=== PATIENT | male | born 1955 | race Caucasian/White ===

== ENCOUNTER → 2018-03-31 13:19 | Outpatient (REF) | payer MEDICAID, SELFPAY ==
[2018-03-31 20:16] LABS: Abs Immature Grans 0.06 k/cumm (0.0-0.09); Absolute Basophil Count 0.03 k/cumm (0.0-0.2); Absolute Eosinophil Count 0.15 k/cumm (0.0-0.7); Absolute Lymphocyte Count 1.82 k/cumm (1.2-3.4); Absolute Monocyte Count 1.01 k/cumm (0.11-0.7); Absolute Neutrophil Count 4.34 k/cumm (1.2-6.7); Basophils % 0.4; HCT 34.1 % (40.0-50.0); HGB 10.7 g/dL (13.5-17.5); Immature Grans % 0.8; Lymphocytes % 24.6; Mean Corp. HGB Concentration 31.4 g/dL (32.0-36.0); Mean Corpuscular Hemoglobin 29.5 pg (27.0-33.0); Mean Corpuscular Volume 93.9 fL (80-95); Mean Platelet Volume 9.8 fL (8.0-11.0); Monocytes % 13.6; Neutrophils % 58.6; Platelet Count 470 x1000/uL (130-400); RBC 3.63 m/cumm (4.50-6.00); RBC Distribution Width 15.9 % (11.8-14.1); White Blood Cell Count 7.41 k/cumm (4.4-10.8)
[2018-03-31 20:25] LABS: ALT 24 U/L (12-78); AST 28 U/L (15-37); Albumin 3.3 g/dL (3.4-5.0); Alkaline Phosphatase 142 U/L (46-116); Anion Gap 9.5 mmol/L (3-11); BUN 12 mg/dL (7-18); Bilirubin, Total 0.2 mg/dL (0.2-1.0); CO2 26.5 mmol/L (21.0-32.0); CREATININE 0.59 mg/dL (0.70-1.30); Calcium 8.9 mg/dL (8.5-10.1); Chloride 104 mmol/L (98-107); Glucose 85 mg/dL (70-100); Magnesium 1.1 mg/dL (1.8-2.4); Potassium 4.6 mmol/L (3.5-5.1); Sodium 140 mmol/L (136-145); Total Protein 6.7 g/dL (6.4-8.2)
== END ==
LOC: NCHCN 13:19
PROVIDERS: PCP Nurse Practitioner; Visit Provider Nurse Practitioner
DX: K57.20 Diverticulitis of large intestine with perforation and abscess without bleeding (principal); F10.10 Alcohol abuse, uncomplicated; D64.9 Anemia, unspecified
CPT/HCPCS: 80053; 83735; 85025

== ENCOUNTER 2018-05-29 08:32 | Emergency (ER) | payer MEDICAID, SELFPAY ==
[2018-05-29] VITALS (47 sets, daily range): BP systolic 110–145; BP diastolic 66–94; PULSE 88–124; RESP 4–33; TEMP 36.7–37.2; O2SAT 94–100
--- NOTE | 2018-05-29 08:54 | DI.RAD_ITS ---
SYMPTOM/DIAGNOSIS: COUGH, SOB PA AND LATERAL CHEST: The lungs are hyperinflated consistent with COPD. No acute consolidation is seen. The cardiac size is within normal limits. No pleural effusion is seen. No change in appearance of the chest from 02/20/18. CONCLUSION: No evidence of acute disease.
--- NOTE | 2018-05-29 08:57 | W.ED.GENAD ---
Discharge Plan Disposition Patient Disposition: HOME Condition: Improving Discharge Details Chief Complaint: SOB Clinical Impression: Acute bronchitis with COPD Primary Care Provider: Hina La ED Provider: Flaco Marquez Home Meds and New Rx's Prescriptions: New prednisone 20 mg tablet 40 mg PO DAILY 5 Days Qty: 10 RF: 0 cefpodoxime 200 mg tablet 200 mg PO BID Qty: 14 RF: 0 Continue ipratropium-albuterol 0.5 mg-3 mg(2.5 mg base)/3 mL Solution For Nebulization 3 ml INHALATION QID RF: 0 omeprazole 40 mg Capsule,Delayed Release(Dr/Ec) 40 mg PO DAILY RF: 0 cholecalciferol (vitamin D3) [Vitamin D3] 1,000 unit Capsule 1,000 unit PO DAILY RF: 0 metoprolol tartrate 25 mg Tablet 25 mg PO BID RF: 0 cefpodoxime 200 mg Tablet 200 mg PO BID Qty: 14 RF: 0 multivitamin [Multiple Vitamins] 1 TAB tablet 1 tab PO DAILY RF: 0 folic acid 1 MG tablet 1 mg PO DAILY Qty: 30 RF: 0 thiamine mononitrate (vit B1) [Vitamin B-1 (mononitrate)] 100 MG tablet 100 mg PO DAILY Qty: 30 RF: 0 albuterol sulfate [ProAir HFA] 200 PUFF/INH HFA aerosol inhaler 200 puff Inhalation Q4H PRNQty: 1 RF: 0 Discharge Instructions Instructions: Acute Bronchitis (ED), COPD (Chronic Obstructive Pulmonary Disease) (ED), Bronchospasm (ED), Acute Cough (ED) Additional Instructions: Please continue to take Cefpodoxime as I have represcribed. Take prednisone as prescribed. Continue your other regular medications. Follow-up with general surgery as you have planned. We did inform him that you would miss preoperative appointment today; call for the next available point Medical Decision Making 62-year-old male smoker presents with shortness of breath and cough over days time. She does not have a fever, he is tachycardic and anxious in appearance. His lungs reveal bilateral end expiratory wheeze. A rectal diagnosis in this gentleman is broad including bronchitis, COPD exacerbation, pneumonia, mild alcohol withdrawal, dehydration. Patient IV access established, given Solu-Medrol, DuoNeb updraft, Ativan. He is referred for laboratories, EKG, chest Xray Patient's laboratories reveal a white blood cell count of 4, hematocrit 35, platelets 181. Chemistries reassuring with a negative troponin, unremarkable BNP, and hypomagnesemia that was supplemented in the emergency department. Additionally the patient received his daily dose of metoprolol. Patient improved with these interventions. This is consistent with bronchitis and COPD exacerbation. We will treat him with a course of antibiotics, burst steroids, and he may pursue follow-up with his general surgeon for planned takedown of his ostomy. Lab Data Lab results reviewed: Yes I reviewed the patient's lab results. Laboratory Tests Range/Units 05/29/18 05/29/18 05/29/18 08:50 08:50 08:50 WBC (4.4-10.8) k/cumm 4.52 RBC (4.50-6.00) m/cumm 3.98 L Hgb (13.5-17.5) g/dL 12.2 L Hct (40.0-50.0) % 35.9 L MCV (80-95) fL 90.2 MCH (27.0-33.0) pg 30.7 MCHC (32.0-36.0) g/dL 34.0 RDW (11.8-14.1) % 21.2 H Plt Count (130-400) x1000/uL 181 MPV (8.0-11.0) fL 9.2 Immature Gran % 0.2 Neutrophils % 54.9 Lymphocytes % 34.3 Monocytes % 10.2 Eosinophils % 0.2 Basophils % 0.2 Absolute Neutrophils (1.2-6.7) k/cumm 2.48 Absolute Lymphocytes (1.2-3.4) k/cumm 1.55 Absolute Monocytes (0.11-0.7) k/cumm 0.46 Absolute Eosinophils (0.0-0.7) k/cumm 0.01 Absolute Basophils (0.0-0.2) k/cumm 0.01 Sodium (136-145) mmol/L 137 Potassium (3.5-5.1) mmol/L 4.8 Chloride (98-107) mmol/L 101 Carbon Dioxide (21.0-32.0) mmol/L 24.1 Anion Gap (3-11) mmol/L 11.9 H BUN (7-18) mg/dL 12 Creatinine (0.70-1.30) mg/dL 0.83 Estimated GFR/1.73 m2 (mL/min/1.73m2) >= 60.00 Glucose (70-100) mg/dL 105 H Calcium (8.5-10.1) mg/dL 8.9 Magnesium (1.8-2.4) mg/dL 0.9 L Total Bilirubin (0.2-1.0) mg/dL 0.2 AST (15-37) U/L 42 H ALT (12-78) U/L 35 Alkaline Phosphatase (46-116) U/L 158 H Troponin I (0.00-0.06) ng/mL < 0.02 NT-Pro-B Natriuret Pep ( - 299) pg/mL 84 Total Protein (6.4-8.2) g/dL 7.6 Albumin (3.4-5.0) g/dL 3.8 ECG Data Attestation: I personally reviewed and interpreted this ECG (s) as follows: Interpretation: Sinus tachycardia, the QRS is narrow, there is no ST segment elevation present HPI General Mode of arrival: ambulatory. Date/Time Provider Initiated Documentation: 05/29/18 08:49. Limitations to Documentation: no limitations. Information obtained by: patient. History of Present Illness 62 year old M presents to the emergency department with the chief complaint of Shortness of breath, described as severe, Quality is described as constant, and is localized to the chest. Patient started experiencing this day(s) and it has been constant. No relieving factors improve symptom(s), No exacerbating factors reported . HPI Narrative: 62-year-old male smoker and chronic daily user of alcohol presents with cough, congestion, shortness of breath for approximately 3 days time that worsened this morning. Sister with congestion. States his last drink was a single beer yesterday. He admits to some nerves. He has not had chest pain. He has not had swelling. No nausea or vomiting. No known sick contacts Related Data Home Medications Medication Instructions Recorded Confirmed albuterol sulfate [ProAir HFA] 200 puff INHALATION Q4H PRN #1 inh 01/23/18 05/29/18 folic acid 1 mg PO DAILY #30 tab 01/23/18 05/29/18 multivitamin [Multiple Vitamins] 1 tab PO DAILY tab 01/23/18 05/29/18 thiamine mononitrate (vit B1) 100 mg PO DAILY #30 tab 01/23/18 05/29/18 [Vitamin B-1 (mononitrate)] cefpodoxime 200 mg PO BID #14 tab 05/29/18 cefpodoxime 200 mg PO BID #14 tab 05/29/18 05/29/18 cholecalciferol (vitamin D3) 1,000 unit PO DAILY 05/29/18 05/29/18 [Vitamin D3] ipratropium-albuterol 3 ml INHALATION QID 05/29/18 05/29/18 metoprolol tartrate 25 mg PO BID 05/29/18 05/29/18 omeprazole 40 mg PO DAILY 05/29/18 05/29/18 prednisone 40 mg PO DAILY 5 Days #10 tab 05/29/18 Previous Rx's Medication Instructions Recorded albuterol sulfate [ProAir HFA] 200 puff INHALATION Q4H PRN #1 inh 01/23/18 folic acid 1 mg PO DAILY #30 tab 01/23/18 multivitamin [Multiple Vitamins] 1 tab PO DAILY tab 01/23/18 thiamine mononitrate (vit B1) 100 mg PO DAILY #30 tab 01/23/18 [Vitamin B-1 (mononitrate)] cefpodoxime 200 mg PO BID #14 tab 05/29/18 cefpodoxime 200 mg PO BID #14 tab 05/29/18 prednisone 40 mg PO DAILY 5 Days #10 tab 05/29/18 Allergies Allergy/AdvReac Type Severity Reaction Status Date / Time No Known Allergies Allergy Unverified 02/20/18 11:29 Review of Systems Review of Systems 8 systems reviewed and otherwise negative [facility] Social History Smoking/Tobacco Use Status: Current every day Exam Narrative Exam Narrative: GEN: awake, alert, oriented 3. Pleasant, well groomed, interactive, anxious. HEAD: Normocephalic, atraumatic ENT: Mucous membranes moist, oropharynx unremarkable, External ear exam unremarkable EYES: PERRL, EOMI NECK: Full ROM, no JOVAN, no menigismus CHEST/RESP: Nontender, diminished bilaterally with end expiratory wheeze present CARDIOVASCULAR: Tachycardic, radial, no murmur, rub juan. 2+ Rad pulse bilateral ABDOMEN: Soft, nontender, no mass. +Bowel sounds EXT: Full ROM, no edema, no rash Neuro: Grossly normal neurologic exam, conversant, interactive. Psych: Speech fluent, thoughts congruent, affect anxious
--- NOTE | 2018-05-29 09:01 | ED.GENADUL_ITS ---
Discharge Plan Disposition Patient Disposition: HOME Condition: Improving Discharge Details Chief Complaint: SOB Clinical Impression: Acute bronchitis with COPD Primary Care Provider: Hina La ED Provider: Flaco Marquez Home Meds and New Rx's Prescriptions: New prednisone 20 mg tablet 40 mg PO DAILY 5 Days Qty: 10 RF: 0 cefpodoxime 200 mg tablet 200 mg PO BID Qty: 14 RF: 0 Continue ipratropium-albuterol 0.5 mg-3 mg(2.5 mg base)/3 mL Solution For Nebulization 3 ml INHALATION QID RF: 0 omeprazole 40 mg Capsule,Delayed Release(Dr/Ec) 40 mg PO DAILY RF: 0 cholecalciferol (vitamin D3) [Vitamin D3] 1,000 unit Capsule 1,000 unit PO DAILY RF: 0 metoprolol tartrate 25 mg Tablet 25 mg PO BID RF: 0 cefpodoxime 200 mg Tablet 200 mg PO BID Qty: 14 RF: 0 multivitamin [Multiple Vitamins] 1 TAB tablet 1 tab PO DAILY RF: 0 folic acid 1 MG tablet 1 mg PO DAILY Qty: 30 RF: 0 thiamine mononitrate (vit B1) [Vitamin B-1 (mononitrate)] 100 MG tablet 100 mg PO DAILY Qty: 30 RF: 0 albuterol sulfate [ProAir HFA] 200 PUFF/INH HFA aerosol inhaler 200 puff Inhalation Q4H PRNQty: 1 RF: 0 Discharge Instructions Instructions: Acute Bronchitis (ED), COPD (Chronic Obstructive Pulmonary Disease) (ED), Bronchospasm (ED), Acute Cough (ED) Additional Instructions: Please continue to take Cefpodoxime as I have represcribed. Take prednisone as prescribed. Continue your other regular medications. Follow-up with general surgery as you have planned. We did inform him that you would miss preoperative appointment today; call for the next available point Medical Decision Making 62-year-old male smoker presents with shortness of breath and cough over days time. She does not have a fever, he is tachycardic and anxious in appearance. His lungs reveal bilateral end expiratory wheeze. A rectal diagnosis in this gentleman is broad including bronchitis, COPD exacerbation, pneumonia, mild alcohol withdrawal, dehydration. Patient IV access established, given Solu-Medrol, DuoNeb updraft, Ativan. He is referred for laboratories, EKG, chest Xray Patient's laboratories reveal a white blood cell count of 4, hematocrit 35, platelets 181. Chemistries reassuring with a negative troponin, unremarkable BNP, and hypomagnesemia that was supplemented in the emergency department. Additionally the patient received his daily dose of metoprolol. Patient improved with these interventions. This is consistent with bronchitis and COPD exacerbation. We will treat him with a course of antibiotics, burst steroids, and he may pursue follow-up with his general surgeon for planned takedown of his ostomy. Lab Data Lab results reviewed: Yes I reviewed the patient's lab results. Laboratory Tests Range/Units 05/29/18 05/29/18 05/29/18 08:50 08:50 08:50 WBC (4.4-10.8) k/cumm 4.52 RBC (4.50-6.00) m/cumm 3.98 L Hgb (13.5-17.5) g/dL 12.2 L Hct (40.0-50.0) % 35.9 L MCV (80-95) fL 90.2 MCH (27.0-33.0) pg 30.7 MCHC (32.0-36.0) g/dL 34.0 RDW (11.8-14.1) % 21.2 H Plt Count (130-400) x1000/uL 181 MPV (8.0-11.0) fL 9.2 Immature Gran % 0.2 Neutrophils % 54.9 Lymphocytes % 34.3 Monocytes % 10.2 Eosinophils % 0.2 Basophils % 0.2 Absolute Neutrophils (1.2-6.7) k/cumm 2.48 Absolute Lymphocytes (1.2-3.4) k/cumm 1.55 Absolute Monocytes (0.11-0.7) k/cumm 0.46 Absolute Eosinophils (0.0-0.7) k/cumm 0.01 Absolute Basophils (0.0-0.2) k/cumm 0.01 Sodium (136-145) mmol/L 137 Potassium (3.5-5.1) mmol/L 4.8 Chloride (98-107) mmol/L 101 Carbon Dioxide (21.0-32.0) mmol/L 24.1 Anion Gap (3-11) mmol/L 11.9 H BUN (7-18) mg/dL 12 Creatinine (0.70-1.30) mg/dL 0.83 Estimated GFR/1.73 m2 (mL/min/1.73m2) >= 60.00 Glucose (70-100) mg/dL 105 H Calcium (8.5-10.1) mg/dL 8.9 Magnesium (1.8-2.4) mg/dL 0.9 L Total Bilirubin (0.2-1.0) mg/dL 0.2 AST (15-37) U/L 42 H ALT (12-78) U/L 35 Alkaline Phosphatase (46-116) U/L 158 H Troponin I (0.00-0.06) ng/mL < 0.02 NT-Pro-B Natriuret Pep ( - 299) pg/mL 84 Total Protein (6.4-8.2) g/dL 7.6 Albumin (3.4-5.0) g/dL 3.8 ECG Data Attestation: I personally reviewed and interpreted this ECG (s) as follows: Interpretation: Sinus tachycardia, the QRS is narrow, there is no ST segment elevation present HPI General Mode of arrival: ambulatory . Date/Time Provider Initiated Documentation: 05/29/18 08:49 . Limitations to Documentation: no limitations . Information obtained by: patient . History of Present Illness 62 year old M presents to the emergency department with the chief complaint of Shortness of breath, described as severe, Quality is described as constant, and is localized to the chest. Patient started experiencing this day(s) and it has been constant. No relieving factors improve symptom(s), No exacerbating factors reported . HPI Narrative: 62-year-old male smoker and chronic daily user of alcohol presents with cough, congestion, shortness of breath for approximately 3 days time that worsened this morning. Sister with congestion. States his last drink was a single beer yesterday. He admits to some nerves. He has not had chest pain. He has not had swelling. No nausea or vomiting. No known sick contacts Related Data Home Medications Medication Instructions Recorded Confirmed albuterol sulfate [ProAir HFA] 200 puff INHALATION Q4H PRN #1 inh 01/23/1805/29 folic acid 1 mg PO DAILY #30 tab 01/23/18 05/29/18 multivitamin [Multiple Vitamins] 1 tab PO DAILY tab 01/23/18 05/29/18 thiamine mononitrate (vit B1) 100 mg PO DAILY #30 tab 01/23/18 05/29/18 [Vitamin B-1 (mononitrate)] cefpodoxime 200 mg PO BID #14 tab 05/29/18 cefpodoxime 200 mg PO BID #14 tab 05/29/18 05/29/18 cholecalciferol (vitamin D3) 1,000 unit PO DAILY 05/29/18 05/29/18 [Vitamin D3] ipratropium-albuterol 3 ml INHALATION QID 05/29/18 05/29/18 metoprolol tartrate 25 mg PO BID 05/29/18 05/29/18 omeprazole 40 mg PO DAILY 05/29/18 05/29/18 prednisone 40 mg PO DAILY 5 Days #10 tab 05/29/18 Previous Rx's Medication Instructions Recorded albuterol sulfate [ProAir HFA] 200 puff INHALATION Q4H PRN #1 inh 01/23/18 folic acid 1 mg PO DAILY #30 tab 01/23/18 multivitamin [Multiple Vitamins] 1 tab PO DAILY tab 01/23/18 thiamine mononitrate (vit B1) 100 mg PO DAILY #30 tab 01/23/18 [Vitamin B-1 (mononitrate)] cefpodoxime 200 mg PO BID #14 tab 05/29/18 cefpodoxime 200 mg PO BID #14 tab 05/29/18 prednisone 40 mg PO DAILY 5 Days #10 tab 05/29/18 Allergies Allergy/AdvReac Type Severity Reaction Status Date / Time No Known Allergies Allergy Unverified 02/20/18 11:29 Review of Systems Review of Systems 8 systems reviewed and otherwise negative [facility] Social History Smoking/Tobacco Use Status: Current every day Exam Narrative Exam Narrative: GEN: awake, alert, oriented 3. Pleasant, well groomed, interactive, anxious. HEAD: Normocephalic, atraumatic ENT: Mucous membranes moist, oropharynx unremarkable, External ear exam unremarkable EYES: PERRL, EOMI NECK: Full ROM, no JOVAN, no menigismus CHEST/RESP: Nontender, diminished bilaterally with end expiratory wheeze present CARDIOVASCULAR: Tachycardic, radial, no murmur, rub juna. 2+ Rad pulse bilateral ABDOMEN: Soft, nontender, no mass. +Bowel sounds EXT: Full ROM, no edema, no rash Neuro: Grossly normal neurologic exam, conversant, interactive. Psych: Speech fluent, thoughts congruent, affect anxious
[2018-05-29] MEDS: Albuterol/Ipratropium 3 ML UPD VIAL UPD (09:07)
[2018-05-29] MEDS: methylPREDNISolone SUCC 125 MG VIAL IVP (09:09)
[2018-05-29] MEDS: LORazepam 2 MG/ML VIAL 0.5 MG IVP (09:10)
[2018-05-29 09:23] LABS: Abs Immature Grans 0.01 k/cumm (0.0-0.09); Absolute Basophil Count 0.01 k/cumm (0.0-0.2); Absolute Eosinophil Count 0.01 k/cumm (0.0-0.7); Absolute Lymphocyte Count 1.55 k/cumm (1.2-3.4); Absolute Monocyte Count 0.46 k/cumm (0.11-0.7); Absolute Neutrophil Count 2.48 k/cumm (1.2-6.7); Basophils % 0.2; Eosinophils % 0.2; HCT 35.9 % (40.0-50.0); HGB 12.2 g/dL (13.5-17.5); Immature Grans % 0.2; Lymphocytes % 34.3; Mean Corpuscular Hemoglobin 30.7 pg (27.0-33.0); Mean Corpuscular Volume 90.2 fL (80-95); Mean Platelet Volume 9.2 fL (8.0-11.0); Monocytes % 10.2; Neutrophils % 54.9; Platelet Count 181 x1000/uL (130-400); RBC 3.98 m/cumm (4.50-6.00); RBC Distribution Width 21.2 % (11.8-14.1); White Blood Cell Count 4.52 k/cumm (4.4-10.8)
[2018-05-29 09:33] LABS: ALT 35 U/L (12-78); AST 42 U/L (15-37); Albumin 3.8 g/dL (3.4-5.0); Alkaline Phosphatase 158 U/L (46-116); Anion Gap 11.9 mmol/L (3-11); BUN 12 mg/dL (7-18); Bilirubin, Total 0.2 mg/dL (0.2-1.0); CO2 24.1 mmol/L (21.0-32.0); CREATININE 0.83 mg/dL (0.70-1.30); Calcium 8.9 mg/dL (8.5-10.1); Chloride 101 mmol/L (98-107); Glucose 105 mg/dL (70-100); Potassium 4.8 mmol/L (3.5-5.1); Sodium 137 mmol/L (136-145); Total Protein 7.6 g/dL (6.4-8.2)
[2018-05-29 09:40] LABS: Magnesium 0.9 mg/dL (1.8-2.4); NT-proBNP 84 pg/mL
[2018-05-29 09:44] LABS: Troponin I < 0.02 ng/mL (0.00-0.06)
[2018-05-29] MEDS: Normal Saline 1,000 ML 1000 ML IV (10:21)
[2018-05-29] MEDS: Metoprolol 25 MG TAB PO (10:24)
[2018-05-29] MEDS: Metoprolol 5 MG/5 ML VIAL IVP (10:25)
--- NOTE | 2018-05-29 10:26 | NUR.NOTE ---
Nursing Note: Called and canceled appt. with pre-op; Dr. Curry in [place] for the patient. Patient is aware that he needs to call and re-schedule when available. . Kisha Holland
[2018-05-29] MEDS: MAGNESIUM SULFATE 1 GM/100 ML BAG IVPB (11:21)
== END 2018-05-29 12:48 | disposition home or self-care (01) ==
PROVIDERS: Emergency Provider Emergency Medicine; PCP Nurse Practitioner
DX: J44.0 Chronic obstructive pulmonary disease with (acute) lower respiratory infection (principal); J20.9 Acute bronchitis, unspecified; F17.210 Nicotine dependence, cigarettes, uncomplicated
CPT/HCPCS: 36415; 80053; 93005; 94640; 96361; 96365; 96375; 99285; 71046; 83735; 83880; 84484; 85025; 93010; 99284; J2060; J2930; J3475; J7620

== ENCOUNTER 2018-06-08 11:05 | Outpatient (REF) | payer MEDICAID, SELFPAY ==
[2018-06-08 21:08] LABS: ALT 43 U/L (12-78); AST 35 U/L (15-37); Albumin 3.6 g/dL (3.4-5.0); Alkaline Phosphatase 108 U/L (46-116); Anion Gap 10.6 mmol/L (3-11); BUN 16 mg/dL (7-18); Bilirubin, Total 0.1 mg/dL (0.2-1.0); CO2 25.4 mmol/L (21.0-32.0); CREATININE 0.61 mg/dL (0.70-1.30); Chloride 100 mmol/L (98-107); Glucose 84 mg/dL (70-100); Magnesium 1.4 mg/dL (1.8-2.4); Potassium 4.5 mmol/L (3.5-5.1); Sodium 136 mmol/L (136-145)
== END 2018-06-08 11:25 ==
LOC: NCHCN 11:05
PROVIDERS: PCP Nurse Practitioner; Visit Provider Nurse Practitioner
DX: E83.42 Hypomagnesemia (principal); R79.89 Other specified abnormal findings of blood chemistry
CPT/HCPCS: 80053; 83735

== ENCOUNTER 2018-06-21 09:20 | Emergency (ER) | payer MEDICAID, SELFPAY ==
[2018-06-21] VITALS (66 sets, daily range): BP systolic 127–214; BP diastolic 79–195; PULSE 72–147; RESP 11–35; TEMP 36.9–37.2; O2SAT 96–100
--- NOTE | 2018-06-21 09:43 | DI.CT_ITS ---
SYMPTOMS/DIAGNOSIS: RECENT COLOSTOMY, ABD PAIN, DISTENSION PE CHEST CTA: CT angiography was performed with multi slice acquisition and multi planar and 3D reconstruction. The study was carried out with intravenous administration of 100 cc's of Omnipaque 350. There are emphysematous changes in the lungs. Apical pulmonary and pleural scarring is demonstrated. There is no evidence of PE. There is no evidence of an infiltrate, pleural based intrapulmonary or hilar mass or hilar or mediastinal adenopathy. The heart is not enlarged. There is no pericardial effusion. There is no evidence of an aortic aneurysm with note made of atherosclerotic changes. There is mild DJD involving the dorsal spine and no evidence of a fracture or subluxation. Incidentally there is no evidence of free air beneath the right and left hemidiaphragm. SUMMARY: No evidence of pulmonary embolic disease. No evidence of acute cardiopulmonary disease. Please see the above discussion. CT OF THE ABDOMEN AND PELVIS: The abdominal aorta is of normal caliber. There is evidence of atherosclerotic disease. There is no evidence of an abdominal aortic aneurysm, iliac aneurysm or aneurysm involving the visualized proximal portions of the femoral arteries. There is apparent fatty infiltration of the liver. The pancreas as demonstrated appears normal. There is no evidence of splenic pathology. There is no evidence of bowel obstruction. There are some mildly dilated loops of proximal and mid small bowel. The bladder is intact. The prostate is somewhat enlarged and contains calcifications. The reproductive organs as visualized appear intact. No hernia is evident on the present examination. There are mild degenerative changes involving the hips and mild DJD involving the lumbar spine is identified. SUMMARY: No evidence of an aortic aneurysm or occlusion of the celiac or superior mesenteric arteries. Incidental findings as noted above.
[2018-06-21] MEDS: Normal Saline 1,000 ML 1000 ML IV ×2 (09:50→13:30)
[2018-06-21 10:16] LABS: Lactate-non-spesis 2.5 mmol/L (0.6-1.4)
[2018-06-21 10:21] LABS: Abs Immature Grans 0.05 k/cumm (0.0-0.09); Absolute Basophil Count 0.05 k/cumm (0.0-0.2); Absolute Eosinophil Count 0.09 k/cumm (0.0-0.7); Absolute Lymphocyte Count 1.57 k/cumm (1.2-3.4); Absolute Monocyte Count 0.71 k/cumm (0.11-0.7); Absolute Neutrophil Count 2.85 k/cumm (1.2-6.7); Basophils % 0.9; Eosinophils % 1.7; HCT 35.4 % (40.0-50.0); HGB 11.9 g/dL (13.5-17.5); Immature Grans % 0.9; Lymphocytes % 29.5; Mean Corp. HGB Concentration 33.6 g/dL (32.0-36.0); Mean Corpuscular Hemoglobin 30.8 pg (27.0-33.0); Mean Corpuscular Volume 91.7 fL (80-95); Mean Platelet Volume 8.3 fL (8.0-11.0); Monocytes % 13.3; Neutrophils % 53.7; Platelet Count 226 x1000/uL (130-400); RBC 3.86 m/cumm (4.50-6.00); RBC Distribution Width 19.6 % (11.8-14.1); White Blood Cell Count 5.32 k/cumm (4.4-10.8)
[2018-06-21 10:23] LABS: Ammonia 22 umol/L (11-32)
[2018-06-21 10:33] LABS: PTT Activated 21.9 sec (21.0-31.4); Prothrombin Time 9.3 sec (9.3-10.8)
[2018-06-21 10:41] LABS: ALT 32 U/L (12-78); AST 40 U/L (15-37); Albumin 3.4 g/dL (3.4-5.0); Alkaline Phosphatase 137 U/L (46-116); Anion Gap 11.8 mmol/L (3-11); BUN 16 mg/dL (7-18); Bilirubin, Total 0.1 mg/dL (0.2-1.0); CO2 25.2 mmol/L (21.0-32.0); CREATININE 0.65 mg/dL (0.70-1.30); Calcium 8.6 mg/dL (8.5-10.1); Chloride 102 mmol/L (98-107); ETHANOL BLOOD 134.2 mg/dL (<3); Glucose 83 mg/dL (70-100); Lipase 277 U/L (73-393); Potassium 3.9 mmol/L (3.5-5.1); Sodium 139 mmol/L (136-145); TSH 0.41 uIU/mL (0.358-3.74); Total Protein 6.7 g/dL (6.4-8.2); Troponin I < 0.02 ng/mL (0.00-0.06)
[2018-06-21] MEDS: Omnipaque 350 MG/ML 100 ML BTL IJ (11:32)
[2018-06-21] MEDS: Omnipaque 350 MG/ML 50 ML BTL PO (11:32)
[2018-06-21 12:34] LABS: Bilirubin Negative (Negative); Blood Negative (Negative); Clarity Clear; Glucose Negative (Negative); Ketones Negative (Negative); Leukocyte Esterase Negative (Negative); Nitrite Negative (Negative); Urobilinogen 0.2 EU/dL (Up TO 0.2); pH 5.5 (5-8)
[2018-06-21 14:34] LABS: Lactate-non-spesis 1.8 mmol/L (0.6-1.4)
[2018-06-21 14:48] LABS: Troponin I < 0.02 ng/mL (0.00-0.06)
--- NOTE | 2018-06-21 15:16 | NUR.NOTE ---
sitting up in bed tolerating food and fluids Nursing Note:
--- NOTE | 2018-06-21 16:07 | PDOC.ERCMACT ---
Care Management Activity Note CM rec'd page for transport coordination-Vito has reportedly been discharged and needs transport home. CM paged [facility] to coordinate transport.
--- NOTE | 2018-06-22 10:35 | W.ED.GENAD ---
Discharge Plan Disposition Patient Disposition: HOME Condition: Good Discharge Details Chief Complaint: SOB Clinical Impression: Abdominal pain, Gastritis, ETOH abuse, Dehydration Reason For Visit: MICKEY Primary Care Provider: Hina La ED Provider: Franky Overton Home Meds and New Rx's Prescriptions: No Action ipratropium-albuterol 0.5 mg-3 mg(2.5 mg base)/3 mL Solution For Nebulization 3 ml INHALATION QID RF: 0 omeprazole 40 mg Capsule,Delayed Release(Dr/Ec) 40 mg PO DAILY RF: 0 cholecalciferol (vitamin D3) [Vitamin D3] 1,000 unit Capsule 1,000 unit PO DAILY RF: 0 metoprolol tartrate 25 mg Tablet 25 mg PO BID RF: 0 cefpodoxime 200 mg Tablet 200 mg PO BID Qty: 14 RF: 0 cefpodoxime 200 mg tablet 200 mg PO BID Qty: 14 RF: 0 multivitamin [Multiple Vitamins] 1 TAB tablet 1 tab PO DAILY RF: 0 folic acid 1 MG tablet 1 mg PO DAILY Qty: 30 RF: 0 thiamine mononitrate (vit B1) [Vitamin B-1 (mononitrate)] 100 MG tablet 100 mg PO DAILY Qty: 30 RF: 0 albuterol sulfate [ProAir HFA] 200 PUFF/INH HFA aerosol inhaler 200 puff Inhalation Q4H PRNQty: 1 RF: 0 Discharge Instructions Instructions: Abdominal Pain (ED) Additional Instructions: Please follow-up with your surgeon as soon as possible for reassessment. If you notice any change in the output from urostomy, any worsening of your abdominal pain, please return immediately. If you notice any worsening of your symptoms, or any new symptoms such as vomiting, diarrhea, fever, chills, shortness of breath, chest pain, numbness, weakness, or fainting , please return immediately to the emergency department for reevaluation. Please follow up with your primary care provider as soon as possible for reassessment and reevaluation. As always, it was a pleasure participating in your medical care today. Referrals: Hina La [Primary Care Provider] - Discharge Data Discharge Date/Time-TO BE ENTERED AT DEPARTURE: 06/21/18 16:03 Medical Decision Making This is a pleasant 62-year-old male who presents for evaluation of abdominal pain, mild shortness of breath and nonexertional chest pain. He has a history of a colostomy was placed 2 months ago, the patient is a very poor historian, is unable to give us the reasons for the colostomy. He is scheduled to have it reversed later. He is also a chronic alcoholic, his last drink was last night. Initial physical exam demonstrates very mild tachycardia, no hypoxemia or significant tachypnea. Abdominal exam demonstrates mild generalized abdominal tenderness, no guarding or rebound, no pain out of proportion. Lung sounds are normal, chest chest auscultation is normal. No other significant abnormalities are noted on external exam aside from mild dry mucosa. Differential is broad but included potential vascular compromise of his abdominal region secondary to his multiple previous surgeries, as well as potential chronic gastritis, as he is a regular alcoholic and is not always compliant with his home medications of antacids. Laboratory workup demonstrated no significant white count, normal renal function, benign electrolyte profile. Troponin was normal. EKG was benign. Initial lactate was slightly elevated, patient was rehydrated, repeat lactate was 1.8. Urinalysis showed no significant abnormalities. CTA of the chest abdomen and pelvis was ordered for evaluation of intestinal ischemia, versus colitis versus pulmonary embolism for shortness of breath. CTA was negative for any acute process for both the abdomen and the chest. No clear etiology of his symptoms was noted on imaging. No evidence of PE, intestinal ischemia, or colitis. Patient has had normal output from his ostomy. No evidence of bleeding. After rehydration patient felt much better. Repeat serial troponin was also normal. I did discuss with the patient observation versus discharge, and the patient agrees with discharge home at this time. I did discuss with him the vital importance of decreasing his alcohol, avoiding any spicy foods, and taking his prescribed omeprazole. Patient states that he understands. Had a long discussion with the patient regarding red flags which to return. Diagnosis abdominal pain, suspected gastritis from chronic alcoholism, and dehydration. I discussed with him the importance of close follow-up with his surgeon at the [facility] for his colostomy, as well as prompt follow-up with his primary care provider for any potential mild recurrent chest pain or shortness of breath. I have extensively reviewed the treatment plan and discharge instructions with the patient. I have addressed all patient concerns at this time. The patient was made aware of what symptoms to monitor for that would warrant a return to the emergency department. Discussed the plan with the patient, they demonstrate verbal understanding and agreement with our assessment and plan at this time. EKG 9: 24 Rate 108, intervals normal, sinus tachycardia, minimal peaking in the lateral T waves, no ST elevations or depressions, no T wave inversions, normal EKG. PE CHEST CTA: CT angiography was performed with multi slice acquisition and multi planar and 3D reconstruction. The study was carried out with intravenous administration of 100 cc's of Omnipaque 350. There are emphysematous changes in the lungs. Apical pulmonary and pleural scarring is demonstrated. There is no evidence of PE. There is no evidence of an infiltrate, pleural based intrapulmonary or hilar mass or hilar or mediastinal adenopathy. The heart is not enlarged. There is no pericardial effusion. There is no evidence of an aortic aneurysm with note made of atherosclerotic changes. There is mild DJD involving the dorsal spine and no evidence of a fracture or subluxation. Incidentally there is no evidence of free air beneath the right and left hemidiaphragm. SUMMARY: No evidence of pulmonary embolic disease. No evidence of acute cardiopulmonary disease. Please see the above discussion. CT OF THE ABDOMEN AND PELVIS: The abdominal aorta is of normal caliber. There is evidence of atherosclerotic disease. There is no evidence of an abdominal aortic aneurysm, iliac aneurysm or aneurysm involving the visualized proximal portions of the femoral arteries. There is apparent fatty infiltration of the liver. The pancreas as demonstrated appears normal. There is no evidence of splenic pathology. There is no evidence of bowel obstruction. There are some mildly dilated loops of proximal and mid small bowel. The bladder is intact. The prostate is somewhat enlarged and contains calcifications. The reproductive organs as visualized appear intact. No hernia is evident on the present examination. There are mild degenerative changes involving the hips and mild DJD involving the lumbar spine is identified. SUMMARY: No evidence of an aortic aneurysm or occlusion of the celiac or superior mesenteric arteries. Incidental findings as noted above. HPI General Date/Time Provider Initiated Documentation: 06/21/18 09:42. HPI Narrative: This is a 62-year-old male who is an extremely poor historian with very little medical insight with a past medical history of notable chronic alcoholism, colostomy with expected reversal, rectus diastases, reflux and gastritis, who denies any other past medical history to myself and nursing staff, who presents today for evaluation of mild dizziness, mild abdominal pain, questionable chest pain shortness of breath. States that his last drink was yesterday, but he also states that he never drinks at all which is clearly not the case. Patient states that over the last 1-2 days he has had mild abdominal discomfort, he feels like his abdomen has been bloating. He denies any vomiting, or change in his colostomy output. He denies any hematochezia, melena, acholic stool, hematemesis. He describes his abdominal pain as achy in nature and generalized throughout. He denies any specific focality. The pain appears to be constant. There is some worsening in the left upper quadrant. He does admit to occasional dizziness as well, with some occasional chest pain shortness of breath which she describes as very mild, nonexertional, with no radiation to the arms or neck. Shortness of breath he describes as mild, and he denies any associated cough, fever or chills. Denies PE risk factors such as recent long car rides, immobilization, recent surgery, prior history of DVT or PE, family history of PE or DVT, morbid obesity, exogenous estrogen and smoking, hemoptysis, history of cancer. Patient has no other complaints at this time. No other modifying factors. He denies any IV or illicit drug use, he denies any pertinent family history Related Data Home Medications Medication Instructions Recorded Confirmed albuterol sulfate [ProAir HFA] 200 puff INHALATION Q4H PRN #1 inh 01/23/18 05/29/18 folic acid 1 mg PO DAILY #30 tab 01/23/18 05/29/18 multivitamin [Multiple Vitamins] 1 tab PO DAILY tab 01/23/18 05/29/18 thiamine mononitrate (vit B1) 100 mg PO DAILY #30 tab 01/23/18 05/29/18 [Vitamin B-1 (mononitrate)] cefpodoxime 200 mg PO BID #14 tab 05/29/18 cefpodoxime 200 mg PO BID #14 tab 05/29/18 05/29/18 cholecalciferol (vitamin D3) 1,000 unit PO DAILY 05/29/18 05/29/18 [Vitamin D3] ipratropium-albuterol 3 ml INHALATION QID 05/29/18 05/29/18 metoprolol tartrate 25 mg PO BID 05/29/18 05/29/18 omeprazole 40 mg PO DAILY 05/29/18 05/29/18 Previous Rx's Medication Instructions Recorded albuterol sulfate [ProAir HFA] 200 puff INHALATION Q4H PRN #1 inh 01/23/18 folic acid 1 mg PO DAILY #30 tab 01/23/18 multivitamin [Multiple Vitamins] 1 tab PO DAILY tab 01/23/18 thiamine mononitrate (vit B1) 100 mg PO DAILY #30 tab 01/23/18 [Vitamin B-1 (mononitrate)] cefpodoxime 200 mg PO BID #14 tab 05/29/18 cefpodoxime 200 mg PO BID #14 tab 05/29/18 Allergies Allergy/AdvReac Type Severity Reaction Status Date / Time No Known Allergies Allergy Unverified 02/20/18 11:29 General Stated Complaint: SOB CADE: 2 Review of Systems Review of Systems All systems reviewed & are unremarkable except as noted in HPI and below Exam Narrative Exam Narrative: 1.Const: Well-nourished, Well-developed, appearing stated age 2.Eyes: PERRL, no conjunctival injection, and symmetrical lids. No horizontal, vertical or rotatory nystagmus. 3.ENT: Atraumatic external nose and ears. Moist MM. Neck: Symmetric, trachea midline, No thyromegaly. 4.CVS: +S1/S2, No murmurs or gallops. Peripheral pulses 2+ and equal in all extremities. Brisk capillary refill in all extremities. 5.RESP: Unlabored respiratory effort. Clear to auscultation bilaterally. No wheezes rales or rhonchi no reproducible chest, 6.GI: Soft, nondistended, no guarding or rebound, no significant hepatosplenomegaly. There is evidence of previous surgical scars, and a mild rectus diastases. He does have a right-sided ostomy, with normal output, and a pink and moist stoma. No evidence of bleeding. 7.MSK: Normocephalic/Atraumatic, Extremities w/o deformity or ttp No cyanosis or clubbing, Normal movement of all extremities 8.Skin: Warm, Dry. No rashes or lesions. 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 Sensation grossly intact, no focal neurologic deficits. No asterixis, significant ataxia, or other abnormalities. 10.Psych: (AAO) x3. Appropriate mood and affect Course Vital Signs Respiratory Rate 26 H 06/21/18 09:23 Pulse Oximetry 99 06/21/18 09:23 Temperature 36.9 C 06/21/18 15:55 Temperature Source Skin 06/21/18 09:29 Pulse 72 06/21/18 15:55 Pulse 93 H 06/21/18 15:40 Respiratory Rate 18 06/21/18 15:55 Respiratory Effort 06/21/18 09:34 Respiratory Depth Normal 06/21/18 09:34 Respiratory Pattern Normal 06/21/18 09:34 Blood Pressure 133/80 06/21/18 15:55 Blood Pressure Mean 106 06/21/18 15:16 Pulse Oximetry 99 06/21/18 16:10 Oxygen Delivery Method Room Air 06/21/18 09:29 Oxygen Flow Rate 0 06/21/18 09:29 Lab/Test Results Lab/Test Results: 06/21/18 10:50 Blood Blood Culture - Pending 06/21/18 09:55 Blood Blood Culture - Pending Laboratory Tests Range/Units 06/21/18 06/21/18 06/21/18 09:55 09:55 09:55 WBC (4.4-10.8) k/cumm RBC (4.50-6.00) m/cumm Hgb (13.5-17.5) g/dL Hct (40.0-50.0) % MCV (80-95) fL MCH (27.0-33.0) pg MCHC (32.0-36.0) g/dL RDW (11.8-14.1) % Plt Count (130-400) x1000/uL MPV (8.0-11.0) fL Immature Gran % Neutrophils % Lymphocytes % Monocytes % Eosinophils % Basophils % Absolute Neutrophils (1.2-6.7) k/cumm Absolute Lymphocytes (1.2-3.4) k/cumm Absolute Monocytes (0.11-0.7) k/cumm Absolute Eosinophils (0.0-0.7) k/cumm Absolute Basophils (0.0-0.2) k/cumm PT (9.3-10.8) sec INR (1.0-3.5) APTT (21.0-31.4) sec Sodium (136-145) mmol/L 139 Potassium (3.5-5.1) mmol/L 3.9 Chloride (98-107) mmol/L 102 Carbon Dioxide (21.0-32.0) mmol/L 25.2 Anion Gap (3-11) mmol/L 11.8 H BUN (7-18) mg/dL 16 Creatinine (0.70-1.30) mg/dL 0.65 L Estimated GFR/1.73 m2 (mL/min/1.73m2) >= 60.00 Glucose (70-100) mg/dL 83 Lactate (0.6-1.4) mmol/L 2.5 H Calcium (8.5-10.1) mg/dL 8.6 Total Bilirubin (0.2-1.0) mg/dL 0.1 L AST (15-37) U/L 40 H ALT (12-78) U/L 32 Alkaline Phosphatase (46-116) U/L 137 H Ammonia (11-32) umol/L 22 Troponin I (0.00-0.06) ng/mL < 0.02 Total Protein (6.4-8.2) g/dL 6.7 Albumin (3.4-5.0) g/dL 3.4 Lipase (73-393) U/L 277 TSH (0.358-3.74) uIU/mL 0.41 Urine Color (Yellow) Urine Clarity Urine pH (5-8) Ur Specific [place] (1.005-1.025) Urine Protein (Negative) mg/dL Urine Ketones (Negative) mg/dL Urine Blood (Negative) Urine Nitrite (Negative) Urine Bilirubin (Negative) Urine Urobilinogen (Up TO 0.2) EU/dL Ur Leukocyte Esterase (Negative) Urine Glucose (Negative) mg/dL Ethyl Alcohol (<3) mg/dL 134.2 Range/Units 06/21/18 06/21/18 06/21/18 09:55 09:55 12:25 WBC (4.4-10.8) k/cumm 5.32 RBC (4.50-6.00) m/cumm 3.86 L Hgb (13.5-17.5) g/dL 11.9 L Hct (40.0-50.0) % 35.4 L MCV (80-95) fL 91.7 MCH (27.0-33.0) pg 30.8 MCHC (32.0-36.0) g/dL 33.6 RDW (11.8-14.1) % 19.6 H Plt Count (130-400) x1000/uL 226 MPV (8.0-11.0) fL 8.3 Immature Gran % 0.9 Neutrophils % 53.7 Lymphocytes % 29.5 Monocytes % 13.3 Eosinophils % 1.7 Basophils % 0.9 Absolute Neutrophils (1.2-6.7) k/cumm 2.85 Absolute Lymphocytes (1.2-3.4) k/cumm 1.57 Absolute Monocytes (0.11-0.7) k/cumm 0.71 H Absolute Eosinophils (0.0-0.7) k/cumm 0.09 Absolute Basophils (0.0-0.2) k/cumm 0.05 PT (9.3-10.8) sec 9.3 INR (1.0-3.5) 1.0 APTT (21.0-31.4) sec 21.9 Sodium (136-145) mmol/L Potassium (3.5-5.1) mmol/L Chloride (98-107) mmol/L Carbon Dioxide (21.0-32.0) mmol/L Anion Gap (3-11) mmol/L BUN (7-18) mg/dL Creatinine (0.70-1.30) mg/dL Estimated GFR/1.73 m2 (mL/min/1.73m2) Glucose (70-100) mg/dL Lactate (0.6-1.4) mmol/L Calcium (8.5-10.1) mg/dL Total Bilirubin (0.2-1.0) mg/dL AST (15-37) U/L ALT (12-78) U/L Alkaline Phosphatase (46-116) U/L Ammonia (11-32) umol/L Troponin I (0.00-0.06) ng/mL Total Protein (6.4-8.2) g/dL Albumin (3.4-5.0) g/dL Lipase (73-393) U/L TSH (0.358-3.74) uIU/mL Urine Color (Yellow) Yellow Urine Clarity Clear Urine pH (5-8) 5.5 Ur Specific [place] (1.005-1.025) 1.010 Urine Protein (Negative) mg/dL Negative Urine Ketones (Negative) mg/dL Negative Urine Blood (Negative) Negative Urine Nitrite (Negative) Negative Urine Bilirubin (Negative) Negative Urine Urobilinogen (Up TO 0.2) EU/dL 0.2 Ur Leukocyte Esterase (Negative) Negative Urine Glucose (Negative) mg/dL Negative Ethyl Alcohol (<3) mg/dL Range/Units 06/21/18 06/21/18 14:25 14:25 WBC (4.4-10.8) k/cumm RBC (4.50-6.00) m/cumm Hgb (13.5-17.5) g/dL Hct (40.0-50.0) % MCV (80-95) fL MCH (27.0-33.0) pg MCHC (32.0-36.0) g/dL RDW (11.8-14.1) % Plt Count (130-400) x1000/uL MPV (8.0-11.0) fL Immature Gran % Neutrophils % Lymphocytes % Monocytes % Eosinophils % Basophils % Absolute Neutrophils (1.2-6.7) k/cumm Absolute Lymphocytes (1.2-3.4) k/cumm Absolute Monocytes (0.11-0.7) k/cumm Absolute Eosinophils (0.0-0.7) k/cumm Absolute Basophils (0.0-0.2) k/cumm PT (9.3-10.8) sec INR (1.0-3.5) APTT (21.0-31.4) sec Sodium (136-145) mmol/L Potassium (3.5-5.1) mmol/L Chloride (98-107) mmol/L Carbon Dioxide (21.0-32.0) mmol/L Anion Gap (3-11) mmol/L BUN (7-18) mg/dL Creatinine (0.70-1.30) mg/dL Estimated GFR/1.73 m2 (mL/min/1.73m2) Glucose (70-100) mg/dL Lactate (0.6-1.4) mmol/L 1.8 H Calcium (8.5-10.1) mg/dL Total Bilirubin (0.2-1.0) mg/dL AST (15-37) U/L ALT (12-78) U/L Alkaline Phosphatase (46-116) U/L Ammonia (11-32) umol/L Troponin I (0.00-0.06) ng/mL < 0.02 Total Protein (6.4-8.2) g/dL Albumin (3.4-5.0) g/dL Lipase (73-393) U/L TSH (0.358-3.74) uIU/mL Urine Color (Yellow) Urine Clarity Urine pH (5-8) Ur Specific [place] (1.005-1.025) Urine Protein (Negative) mg/dL Urine Ketones (Negative) mg/dL Urine Blood (Negative) Urine Nitrite (Negative) Urine Bilirubin (Negative) Urine Urobilinogen (Up TO 0.2) EU/dL Ur Leukocyte Esterase (Negative) Urine Glucose (Negative) mg/dL Ethyl Alcohol (<3) mg/dL
== END 2018-06-21 16:03 | disposition home or self-care (01) ==
PROVIDERS: Emergency Provider Student in an Organized Health Care Education/Training Program; PCP Nurse Practitioner
DX: R10.84 Generalized abdominal pain (principal); F10.220 Alcohol dependence with intoxication, uncomplicated; Y90.6 Blood alcohol level of 120-199 mg/100 ml; K29.00 Acute gastritis without bleeding; R42 Dizziness and giddiness; R07.9 Chest pain, unspecified; E86.0 Dehydration; Z93.3 Colostomy status; J44.9 Chronic obstructive pulmonary disease, unspecified; F17.210 Nicotine dependence, cigarettes, uncomplicated
CPT/HCPCS: 36415; 71275; 74177; 80053; 83690; 87040; 93005; 96360; 96361; 99285; 80320; 81003; 82140; 83605; 84443; 84484; 85025; 85610; 85730; 93010; J3490; Q9967

== ENCOUNTER 2018-07-12 12:27 | Emergency (ER) | payer MEDICAID, SELFPAY ==
[2018-07-12] VITALS (18 sets, daily range): BP systolic 122–139; BP diastolic 77–101; PULSE 75–119; RESP 8–24; TEMP 36.8–37.2; O2SAT 97–100
--- NOTE | 2018-07-12 12:49 | DI.CT_ITS ---
SYMPTOMS/DIAGNOSIS: ABD PAIN AND DISTENSION, OSTOMY, RLQ PAIN CT OF THE ABDOMEN AND PELVIS: Comparison is made with [id number]. Images were performed from the lung bases through the ischial tuberosities after IV and oral contrast. The patient is status post sigmoid anastomosis. There is a right sided ileostomy. There is no evidence of obstruction, free air or free fluid. No bowel wall thickening is seen. The bladder is unremarkable. There is rectus diastasis. The heart size is normal. The lung bases are clear. The liver is mildly enlarged and shows mild fatty infiltration. The spleen, pancreas, gallbladder and adrenals are unremarkable. A cyst is again noted at the upper pole of the right kidney. IMPRESSION: Status post right sided ileostomy. No evidence of bowel obstruction or other acute abnormality.
--- NOTE | 2018-07-12 12:52 | ED.GENADUL_ITS ---
Discharge Plan Disposition Patient Disposition: HOME Condition: Good Discharge Details Chief Complaint: Abd Prob Clinical Impression: Acute pancreatitis Primary Care Provider: Hina La ED Provider: Franky Overton Home Meds and New Rx's Prescriptions: New ondansetron HCl [Zofran] 4 mg tablet 4 mg PO TID PRN (Reason: nausea and vomiting) 5 Days Qty: 10 RF: 0 No Action omeprazole 40 mg Capsule,Delayed Release(Dr/Ec) 40 mg PO DAILY RF: 0 cholecalciferol (vitamin D3) [Vitamin D3] 1,000 unit Capsule 1,000 unit PO DAILY RF: 0 metoprolol succinate 25 mg Tablet Extended Release 24 Hr 25 mg PO BID RF: 0 nicotine 7 mg/24 hr Patch 24 Hour 7 mg Transdermal .Q24H RF: 0 tiotropium bromide [Spiriva with HandiHaler] 18 mcg Capsule, W/Inhalation Device 1 cap Inhalation DAILY RF: 0 magnesium L-lactate 84 mg Tablet Extended Release 84 mg PO TID RF: 0 multivitamin [Multiple Vitamins] 1 TAB tablet 1 tab PO DAILY RF: 0 folic acid 1 MG tablet 1 mg PO DAILY Qty: 30 RF: 0 thiamine mononitrate (vit B1) [Vitamin B-1 (mononitrate)] 100 MG tablet 100 mg PO DAILY Qty: 30 RF: 0 albuterol sulfate [ProAir HFA] 200 PUFF/INH HFA aerosol inhaler 200 puff Inhalation Q4H PRNQty: 1 RF: 0 Discharge Instructions Instructions: Pancreatitis (ED) Additional Instructions: Please stick with the diet of liquid foods, no fatty or sugary foods, and easy foods like mashed potatoes, oats, and broth. Please follow-up as soon as possible with your primary care provider. Please take the Zofran as needed for nausea and vomiting. If you notice any worsening of your symptoms or any new symptoms such as fever, chills, worsening vomiting, chest pain, numbness tingling or weakness please return immediately for reevaluation. Referrals: Hina La [Primary Care Provider] - Medical Decision Making This is a 62-year-old male with a history of an ileostomy resents today for evaluation after being sent by his PCP for abdominal pain abdominal distention with some subjective shortness of breath that he states is without any associated chest pain but merely because of his abdominal pain. He states that the consistency is similar to his chronic abdominal pain which she has been seen and assessed here for before. Patient is an extremely poor historian and does not know much of his own medical problems. Physical exam demonstrates no evidence of an reducible hernias or incarcerated hernias. Bowel sounds are present he has good ostomy output. We did just get the office visit note from his PCP, where it is noted that his ileostomy was secondary to diverticulitis with perforation. He is still scheduled to have a revision in August at the [facility]. Additionally the patient does have chronic tachycardia for which he takes metoprolol, and unfortunately the patient recently ran out of this did not follow-up for refill. Physical exam demonstrates minimal tenderness in the abdomen. No other significant abnormalities. We will get a CT scan to evaluate for any acute process, evaluate for an unlikely cardiac etiology, give him his metoprolol, rehydrate and reassess. EKG 13: 1 Rate 104, SD 140, QTc 431, QRS 84, sinus tachycardia, no significant ST elevations or depressions, no T wave inversions. No significant Q waves. Patient's CT scan of the abdomen, pelvis, and chest x-ray demonstrate no acute process. No evidence of obstruction or significant abnormality. Laboratory workup is relatively benign with no evidence of significant leukocytosis, or bandemia. Renal function appears within normal limits. Patient's troponin and EKG are benign. Lipase is slightly elevated at 553 and the patient may be suffering from mild pancreatitis. I do feel that this is clinically consistent with his current symptomatology. Bilirubin is normal. We did do a p.o. trial and the patient tolerated this well. His pain is well controlled. I feel that he can be safely discharged home with mild pancreatitis instructions and close follow-up. In a long discussion with the patient regarding red flags which to return including the importance of close follow-up with his primary care provider. CT OF THE ABDOMEN AND PELVIS: Comparison is made with [id number]. Images were performed from the lung bases through the ischial tuberosities after IV and oral contrast. The patient is status post sigmoid anastomosis. There is a right sided ileostomy. There is no evidence of obstruction, free air or free fluid. No bowel wall thickening is seen. The bladder is unremarkable. There is rectus diastasis. The heart size is normal. The lung bases are clear. The liver is mildly enlarged and shows mild fatty infiltration. The spleen, pancreas, gallbladder and adrenals are unremarkable. A cyst is again noted at the upper pole of the right kidney. IMPRESSION: Status post right sided ileostomy. No evidence of bowel obstruction or other acute abnormality. PA AND LATERAL CHEST: Comparison is made with [id number]. The heart is normal. The lungs are hyperinflated but appear clear. IMPRESSION: Emphysematous changes. No acute abnormality. HPI General Date/Time Provider Initiated Documentation: 07/12/18 12:48 . HPI Narrative: This is a 62-year-old male who is an extremely poor historian with very little medical insight with a past medical history of notable chronic alcoholism, ostomy with expected reversal, rectus diastases, reflux and gastritis, who denies any other past medical history to myself and nursing staff, who presents today for evaluation of abdominal pain distention. The patient was seen and assessed here roughly 3 weeks ago for complaints of abdominal pain distention at that time he had serial troponins, CT angios of the chest abdomen and pelvis, all of which were relatively benign with a relatively benign workup. He was discharged, and unfortunately never followed up with his colostomy surgeons at [facility]. He did follow-up with his primary care provider today for his regular appointment where he was noted to be mildly tachycardic with some abdominal pain mild distention. The patient admits to occasional vomiting but has been maintaining regular bowel movements through his ostomy and denies any significant change in color or consistency for these. He denies any blood or dark tarry stools. He states that the pain is similar to as it was before and has not totally improved since his last visit 3 weeks ago. He denies any aggravating or relieving factors. He denies any chest pain. He denies any arm or neck pain. He denies any other modifying or relieving factors. He has no other complaints at this time. Related Data Home Medications Medication Instructions Recorded Confirmed albuterol sulfate [ProAir HFA] 200 puff INHALATION Q4H PRN #1 inh 01/23/1807/12 folic acid 1 mg PO DAILY #30 tab 01/23/18 07/12/18 multivitamin [Multiple Vitamins] 1 tab PO DAILY tab 01/23/18 07/12/18 thiamine mononitrate (vit B1) 100 mg PO DAILY #30 tab 01/23/18 07/12/18 [Vitamin B-1 (mononitrate)] cholecalciferol (vitamin D3) 1,000 unit PO DAILY 05/29/18 07/12/18 [Vitamin D3] omeprazole 40 mg PO DAILY 05/29/18 07/12/18 magnesium L-lactate 84 mg PO TID 07/12/18 07/12/18 metoprolol succinate 25 mg PO BID 07/12/18 07/12/18 nicotine 7 mg TRANSDERMAL .Q24H 07/12/18 07/12/18 ondansetron HCl [Zofran] 4 mg PO TID PRN 5 Days #10 tab 07/12/18 tiotropium bromide [Spiriva with 1 cap INHALATION DAILY 07/12/18 07/12/18 HandiHaler] Previous Rx's Medication Instructions Recorded albuterol sulfate [ProAir HFA] 200 puff INHALATION Q4H PRN #1 inh 01/23/18 folic acid 1 mg PO DAILY #30 tab 01/23/18 multivitamin [Multiple Vitamins] 1 tab PO DAILY tab 01/23/18 thiamine mononitrate (vit B1) 100 mg PO DAILY #30 tab 01/23/18 [Vitamin B-1 (mononitrate)] ondansetron HCl [Zofran] 4 mg PO TID PRN 5 Days #10 tab 07/12/18 Allergies Allergy/AdvReac Type Severity Reaction Status Date / Time No Known Allergies Allergy Unverified 07/12/18 12:37 General Stated Complaint: Abd Prob CADE: 2 Review of Systems Review of Systems All systems reviewed & are unremarkable except as noted in HPI and below Exam Narrative Exam Narrative: 1.Const: Well-nourished, Well-developed, appearing stated age 2.Eyes: PERRL, no conjunctival injection, and symmetrical lids. 3.ENT: Atraumatic external nose and ears. Moist MM. Neck: Symmetric, trachea midline, No thyromegaly. 4.CVS: +S1/S2, No murmurs or gallops. Peripheral pulses 2+ and equal in all extremities. Brisk capillary refill in all extremities. 5.RESP: Unlabored respiratory effort. Clear to auscultation bilaterally. No wheezes rales or rhonchi 6.GI: Soft, mild hepatomegaly. No guarding or rebound. Mild tenderness in the right lower lower quadrant. Good ostomy output. No evidence of blood in the ostomy. Ostomy site is pink. Notable rectus diastases is present, and is easily reducible. No evidence of firm nodules or firm nonreducible hernias. Bowel sounds are present. No other significant abnormalities on exam. 7.MSK: Normocephalic/Atraumatic, Extremities w/o deformity or ttp No cyanosis or clubbing, Normal movement of all extremities. No asterixis. 8.Skin: Warm, Dry. No rashes or lesions. 9.Neuro: hot patcher II-XII grossly intact. Sensation grossly intact, no focal neurologic deficits. 10.Psych: (AAO) x3. Appropriate mood and affect Course Vital Signs Temperature 36.8 C 07/12/18 12:32 Pulse 108 H 07/12/18 12:32 Respiratory Rate 20 07/12/18 12:32 Blood Pressure 126/84 07/12/18 12:32 Pulse Oximetry 100 07/12/18 12:32 Temperature 36.8 C 07/12/18 12:32 Temperature Source Skin 07/12/18 12:32 Pulse 108 H 07/12/18 12:32 Respiratory Rate 20 07/12/18 12:32 Respiratory Effort 07/12/18 12:35 Blood Pressure 126/84 07/12/18 12:32 Pulse Oximetry 100 07/12/18 12:32 Oxygen Delivery Method Room Air 07/12/18 12:32 Oxygen Flow Rate 0 07/12/18 12:32 Pain Level 5 07/12/18 12:32 Comment 07/12/18 12:32
--- NOTE | 2018-07-12 13:11 | DI.RAD_ITS ---
SYMPTOMS/DIAGNOSIS: SHORTNESS OF BREATH, NO COUGH, NO CHEST PAIN PA AND LATERAL CHEST: Comparison is made with [id number]. The heart is normal. The lungs are hyperinflated but appear clear. IMPRESSION: Emphysematous changes. No acute abnormality.
[2018-07-12] MEDS: Normal Saline 1,000 ML 1000 ML IV (13:16)
[2018-07-12] MEDS: Acetaminophen 500 MG TAB 1000 MG PO (13:16)
[2018-07-12] MEDS: Metoprolol 25 MG TAB PO (13:17)
[2018-07-12] MEDS: Omnipaque 350 MG/ML 50 ML BTL PO (13:31)
[2018-07-12] MEDS: Breeza Beverage 473 ML BTL PO ×2 (13:32→13:33)
[2018-07-12 13:33] LABS: Abs Immature Grans 0.03 k/cumm (0.0-0.09); Absolute Basophil Count 0.02 k/cumm (0.0-0.2); Absolute Eosinophil Count 0.02 k/cumm (0.0-0.7); Absolute Lymphocyte Count 1.13 k/cumm (1.2-3.4); Absolute Monocyte Count 0.79 k/cumm (0.11-0.7); Absolute Neutrophil Count 5.54 k/cumm (1.2-6.7); Basophils % 0.3; Eosinophils % 0.3; HGB 12.2 g/dL (13.5-17.5); Immature Grans % 0.4; Mean Corp. HGB Concentration 34.9 g/dL (32.0-36.0); Mean Corpuscular Hemoglobin 31.5 pg (27.0-33.0); Mean Corpuscular Volume 90.4 fL (80-95); Mean Platelet Volume 9.4 fL (8.0-11.0); Monocytes % 10.5; Neutrophils % 73.5; Platelet Count 154 x1000/uL (130-400); RBC 3.87 m/cumm (4.50-6.00); RBC Distribution Width 17.4 % (11.8-14.1); White Blood Cell Count 7.53 k/cumm (4.4-10.8)
[2018-07-12 13:38] LABS: PTT Activated 24.1 sec (21.0-31.4); Prothrombin Time 10.2 sec (9.3-10.8)
[2018-07-12 13:44] LABS: ALT 69 U/L (12-78); AST 87 U/L (15-37); Albumin 3.7 g/dL (3.4-5.0); Alkaline Phosphatase 196 U/L (46-116); Anion Gap 12.1 mmol/L (3-11); BUN 8 mg/dL (7-18); Bilirubin, Total 0.7 mg/dL (0.2-1.0); CO2 22.9 mmol/L (21.0-32.0); CREATININE 0.76 mg/dL (0.70-1.30); Calcium 8.6 mg/dL (8.5-10.1); Chloride 97 mmol/L (98-107); Glucose 103 mg/dL (70-100); Lipase 553 U/L (73-393); Potassium 4.3 mmol/L (3.5-5.1); Sodium 132 mmol/L (136-145); TSH 1.18 uIU/mL (0.358-3.74)
[2018-07-12 13:45] LABS: Troponin I < 0.02 ng/mL (0.00-0.06)
[2018-07-12] MEDS: Omnipaque 350 MG/ML 100 ML BTL IJ (13:57)
[2018-07-12 14:57] LABS: Bilirubin Negative (Negative); Blood Negative (Negative); Clarity Clear; Glucose Negative (Negative); Ketones Negative (Negative); Leukocyte Esterase Negative (Negative); Nitrite Negative (Negative); Urobilinogen 0.2 EU/dL (Up TO 0.2)
== END 2018-07-12 16:35 | disposition home or self-care (01) ==
LOC: ER 16:20
PROVIDERS: Emergency Provider Student in an Organized Health Care Education/Training Program; PCP Nurse Practitioner
DX: K85.90 Acute pancreatitis without necrosis or infection, unspecified (principal); R11.2 Nausea with vomiting, unspecified; R14.0 Abdominal distension (gaseous); Z90.49 Acquired absence of other specified parts of digestive tract; Z93.2 Ileostomy status; J44.9 Chronic obstructive pulmonary disease, unspecified; F17.210 Nicotine dependence, cigarettes, uncomplicated
CPT/HCPCS: 36415; 80053; 83690; 93005; 96360; 99285; 71046; 74177; 81003; 84443; 84484; 85025; 85610; 85730; 93010; 99284; J3490; Q9967

== ENCOUNTER 2018-08-12 18:46 | Emergency (ER) | payer MEDICAID, SELFPAY ==
[2018-08-12 18:54] VITALS: BP 152/103; PULSE 109; RESP 22; TEMP 36.6; O2SAT 97
[2018-08-12 18:59] VITALS: RESP 22
[2018-08-12 19:30] VITALS: PULSE 109; RESP 22; RESP 4; RESP 8; O2SAT 97
[2018-08-12] MEDS: Albuterol/Ipratropium 3 ML UPD VIAL (19:30)
--- NOTE | 2018-08-12 20:00 | W.ED.GENAD ---
Discharge Plan Disposition Patient Disposition: HOME Condition: Stable Discharge Details Chief Complaint: SOB Clinical Impression: Alcoholism /alcohol abuse Reason For Visit: MICKEY Primary Care Provider: Hina La ED Provider: Sukhwinder Barbosa Home Meds and New Rx's Prescriptions: No Action omeprazole 40 mg Capsule,Delayed Release(Dr/Ec) 40 mg PO DAILY RF: 0 cholecalciferol (vitamin D3) [Vitamin D3] 1,000 unit Capsule 1,000 unit PO DAILY RF: 0 metoprolol succinate 25 mg Tablet Extended Release 24 Hr 25 mg PO BID RF: 0 nicotine 7 mg/24 hr Patch 24 Hour 7 mg Transdermal .Q24H RF: 0 Spiriva with HandiHaler 18 mcg Capsule, W/Inhalation Device 1 cap Inhalation DAILY RF: 0 magnesium L-lactate 84 mg Tablet Extended Release 84 mg PO TID RF: 0 multivitamin [Multiple Vitamins] 1 TAB tablet 1 tab PO DAILY RF: 0 folic acid 1 MG tablet 1 mg PO DAILY Qty: 30 RF: 0 thiamine mononitrate (vit B1) [Vitamin B-1 (mononitrate)] 100 MG tablet 100 mg PO DAILY Qty: 30 RF: 0 ProAir HFA 200 PUFF/INH HFA aerosol inhaler 200 puff Inhalation Q4H PRNQty: 1 RF: 0 Discharge Instructions Additional Instructions: You refused to have blood work and imaging of the abdomen done to evaluate for life threatening causes of your pain Follow up with your surgeon as scheduled and your primary care provider in 1-2 weeks if you have severe worsening of pain or persistent vomit return to the emergency department for evaluation Medical Decision Making 62 yo male with hx of ileostomy with abdominal pain for over 4 months, chronic alcoholism, who comes in with ems with abdominal pain. HE denies any increased pain today or acute worsening, states it feels the same as it has the past few months when he has had negative imaging and lab work studies. HE denies any chest pain or shortness of breath on my exam. He has stool in his ostomy with pink well perfused tissue seen at the ostomy site. HE has no abdominal distention. HAs a midline abdominal hernia that is soft and reduces easily. HE has no guarding or rebound. He is scheduled to f/u with a surgeon at [facility] next month. I recommended to the patient that we perform lab work and a ct to eval for abdominal and cardiac causes of his pain. HE declines this. HE does have smell of alcohol on his breath but is caox4 with stable gait. He has capacity to make his own decisions and understands the risks of leaving without a workup including and becoming disabled and is willing to take these risks on. HE is leaving against my medical advice. He was strongly encouraged to follow up with his pcp and surgeons and return if he worsens or changes his mind Differential Diagnosis abdominal hernia, sbo, appendicitis ECG Data Attestation: I personally reviewed and interpreted this ECG (s) as follows: Prior ECG tracings: not available for review Interpretation: sinus tachycardia, rate of 115, pr 130 HPI General Mode of arrival: EMS. Date/Time Provider Initiated Documentation: 08/12/18 19:14. Limitations to Documentation: no limitations. Information obtained by: patient. History of Present Illness 62 year old M presents to the emergency department with the chief complaint of abdominal pain, described as moderate, with intensity rated at 6. Quality is described as stabbing, and is localized to the abdomen. Patient reports no radiation. Patient started experiencing this month(s) (4) and it has been constant. No relieving factors improve symptom(s), No exacerbating factors reported . Patient notes no other symptoms.. Patient did receive the following treatments prior to arrival, none Related Data Home Medications Medication Instructions Recorded Confirmed ProAir HFA 200 puff INHALATION Q4H PRN #1 inh 01/23/18 08/12/18 folic acid 1 mg PO DAILY #30 tab 01/23/18 08/12/18 multivitamin [Multiple Vitamins] 1 tab PO DAILY tab 01/23/18 08/12/18 thiamine mononitrate (vit B1) 100 mg PO DAILY #30 tab 01/23/18 08/12/18 [Vitamin B-1 (mononitrate)] cholecalciferol (vitamin D3) 1,000 unit PO DAILY 05/29/18 08/12/18 [Vitamin D3] omeprazole 40 mg PO DAILY 05/29/18 08/12/18 magnesium L-lactate 84 mg PO TID 07/12/18 08/12/18 metoprolol succinate 25 mg PO BID 07/12/18 08/12/18 nicotine 7 mg TRANSDERMAL .Q24H 07/12/18 08/12/18 tiotropium bromide [Spiriva with 1 cap INHALATION DAILY 07/12/18 08/12/18 HandiHaler] Previous Rx's Medication Instructions Recorded ProAir HFA 200 puff INHALATION Q4H PRN #1 inh 01/23/18 folic acid 1 mg PO DAILY #30 tab 01/23/18 multivitamin [Multiple Vitamins] 1 tab PO DAILY tab 01/23/18 thiamine mononitrate (vit B1) 100 mg PO DAILY #30 tab 01/23/18 [Vitamin B-1 (mononitrate)] Allergies Allergy/AdvReac Type Severity Reaction Status Date / Time No Known Allergies Allergy Unverified 08/12/18 19:03 General Stated Complaint: SOB CADE: 3 Review of Systems Review of Systems All systems reviewed & are unremarkable except as noted in HPI and below Constitutional Denies chills, Denies fever(s) and Denies weakness Cardiovascular Denies chest pain and Denies dyspnea Respiratory Denies dyspnea Gastrointestinal Denies nausea and Denies vomiting Genitourinary Denies dysuria Integumentary/Breasts Denies rash Neurologic Denies weakness Psychiatric Denies depression [facility] Social History Smoking/Tobacco Use Status: Current every day Exam Const General: no acute distress Orientation: alert HENMT Head: normal to inspection Ears: external ears normal General nose exam: external nose normal Mouth: moist mucous membranes Eyes General: appearance normal, both eyes and all related structures Neck Neck: normal visual inspection Resp Effort & Inspection: normal respiratory effort and able to speak in complete sentences Cardio Rate: regular rate GI Palpation: soft Skin General skin exam: no rashes or lesions noted Neuro General: alert and oriented x3 Extrem General: normal to inspection Psych Mental Status: mental status grossly normal Course Vital Signs Temperature 36.6 C 08/12/18 18:54 Pulse 109 H 08/12/18 18:54 Respiratory Rate 22 08/12/18 18:54 Blood Pressure 152/103 H 08/12/18 18:54 Pulse Oximetry 97 08/12/18 18:54 Temperature 36.6 C 08/12/18 18:54 Temperature Source Temporal Artery Scan 08/12/18 18:54 Pulse 109 H 08/12/18 19:30 Respiratory Rate 22 08/12/18 19:30 Respiratory Effort 08/12/18 18:59 Respiratory Depth Normal 08/12/18 18:59 Respiratory Pattern Normal 08/12/18 18:59 Blood Pressure 152/103 H 08/12/18 18:54 Pulse Oximetry 97 08/12/18 19:30 Oxygen Delivery Method Room Air 08/12/18 19:30 Oxygen Flow Rate 0 08/12/18 19:30 Pain Level 10 08/12/18 18:54
--- NOTE | 2018-08-12 20:10 | ED.GENADUL_ITS ---
Discharge Plan Disposition Patient Disposition: HOME Condition: Stable Discharge Details Chief Complaint: SOB Clinical Impression: Alcoholism /alcohol abuse Reason For Visit: MICKEY Primary Care Provider: Hina La ED Provider: Sukhwinder Barbosa Home Meds and New Rx's Prescriptions: No Action omeprazole 40 mg Capsule,Delayed Release(Dr/Ec) 40 mg PO DAILY RF: 0 cholecalciferol (vitamin D3) [Vitamin D3] 1,000 unit Capsule 1,000 unit PO DAILY RF: 0 metoprolol succinate 25 mg Tablet Extended Release 24 Hr 25 mg PO BID RF: 0 nicotine 7 mg/24 hr Patch 24 Hour 7 mg Transdermal .Q24H RF: 0 Spiriva with HandiHaler 18 mcg Capsule, W/Inhalation Device 1 cap Inhalation DAILY RF: 0 magnesium L-lactate 84 mg Tablet Extended Release 84 mg PO TID RF: 0 multivitamin [Multiple Vitamins] 1 TAB tablet 1 tab PO DAILY RF: 0 folic acid 1 MG tablet 1 mg PO DAILY Qty: 30 RF: 0 thiamine mononitrate (vit B1) [Vitamin B-1 (mononitrate)] 100 MG tablet 100 mg PO DAILY Qty: 30 RF: 0 ProAir HFA 200 PUFF/INH HFA aerosol inhaler 200 puff Inhalation Q4H PRNQty: 1 RF: 0 Discharge Instructions Additional Instructions: You refused to have blood work and imaging of the abdomen done to evaluate for life threatening causes of your pain Follow up with your surgeon as scheduled and your primary care provider in 1-2 weeks if you have severe worsening of pain or persistent vomit return to the emergency department for evaluation Medical Decision Making 62 yo male with hx of ileostomy with abdominal pain for over 4 months, chronic alcoholism, who comes in with ems with abdominal pain. HE denies any increased pain today or acute worsening, states it feels the same as it has the past few months when he has had negative imaging and lab work studies. HE denies any chest pain or shortness of breath on my exam. He has stool in his ostomy with pink well perfused tissue seen at the ostomy site. HE has no abdominal distention. HAs a midline abdominal hernia that is soft and reduces easily. HE has no guarding or rebound. He is scheduled to f/u with a surgeon at [facility] next month. I recommended to the patient that we perform lab work and a ct to eval for abdominal and cardiac causes of his pain. HE declines this. HE does have smell of alcohol on his breath but is caox4 with stable gait. He has capacity to make his own decisions and understands the risks of leaving without a workup including and becoming disabled and is willing to take these risks on. HE is leaving against my medical advice. He was strongly encouraged to follow up with his pcp and surgeons and return if he worsens or changes his mind Differential Diagnosis abdominal hernia, sbo, appendicitis ECG Data Attestation: I personally reviewed and interpreted this ECG (s) as follows: Prior ECG tracings: not available for review Interpretation: sinus tachycardia, rate of 115, pr 130 HPI General Mode of arrival: EMS . Date/Time Provider Initiated Documentation: 08/12/18 19:14 . Limitations to Documentation: no limitations . Information obtained by: patient . History of Present Illness 62 year old M presents to the emergency department with the chief complaint of abdominal pain, described as moderate, with intensity rated at 6. Quality is described as stabbing, and is localized to the abdomen. Patient reports no radiation. Patient started experiencing this month(s) (4) and it has been constant. No relieving factors improve symptom(s), No exacerbating factors reported . Patient notes no other symptoms.. Patient did receive the following treatments prior to arrival, none Related Data Home Medications Medication Instructions Recorded Confirmed ProAir HFA 200 puff INHALATION Q4H PRN #1 inh 01/23/18 08/12/18 folic acid 1 mg PO DAILY #30 tab 01/23/18 08/12/18 multivitamin [Multiple Vitamins] 1 tab PO DAILY tab 01/23/18 08/12/18 thiamine mononitrate (vit B1) 100 mg PO DAILY #30 tab 01/23/18 08/12/18 [Vitamin B-1 (mononitrate)] cholecalciferol (vitamin D3) 1,000 unit PO DAILY 05/29/18 08/12/18 [Vitamin D3] omeprazole 40 mg PO DAILY 05/29/18 08/12/18 magnesium L-lactate 84 mg PO TID 07/12/18 08/12/18 metoprolol succinate 25 mg PO BID 07/12/18 08/12/18 nicotine 7 mg TRANSDERMAL .Q24H 07/12/18 08/12/18 tiotropium bromide [Spiriva with 1 cap INHALATION DAILY 07/12/18 08/12/18 HandiHaler] Previous Rx's Medication Instructions Recorded ProAir HFA 200 puff INHALATION Q4H PRN #1 inh 01/23/18 folic acid 1 mg PO DAILY #30 tab 01/23/18 multivitamin [Multiple Vitamins] 1 tab PO DAILY tab 01/23/18 thiamine mononitrate (vit B1) 100 mg PO DAILY #30 tab 01/23/18 [Vitamin B-1 (mononitrate)] Allergies Allergy/AdvReac Type Severity Reaction Status Date / Time No Known Allergies Allergy Unverified 08/12/18 19:03 General Stated Complaint: SOB CADE: 3 Review of Systems Review of Systems All systems reviewed & are unremarkable except as noted in HPI and below Constitutional Denies chills, Denies fever(s) and Denies weakness Cardiovascular Denies chest pain and Denies dyspnea Respiratory Denies dyspnea Gastrointestinal Denies nausea and Denies vomiting Genitourinary Denies dysuria Integumentary/Breasts Denies rash Neurologic Denies weakness Psychiatric Denies depression [facility] Social History Smoking/Tobacco Use Status: Current every day Exam Const General: no acute distress Orientation: alert HENMT Head: normal to inspection Ears: external ears normal General nose exam: external nose normal Mouth: moist mucous membranes Eyes General: appearance normal, both eyes and all related structures Neck Neck: normal visual inspection Resp Effort & Inspection: normal respiratory effort and able to speak in complete sentences Cardio Rate: regular rate GI Palpation: soft Skin General skin exam: no rashes or lesions noted Neuro General: alert and oriented x3 Extrem General: normal to inspection Psych Mental Status: mental status grossly normal Course Vital Signs Temperature 36.6 C 08/12/18 18:54 Pulse 109 H 08/12/18 18:54 Respiratory Rate 22 08/12/18 18:54 Blood Pressure 152/103 H 08/12/18 18:54 Pulse Oximetry 97 08/12/18 18:54 Temperature 36.6 C 08/12/18 18:54 Temperature Source Temporal Artery Scan 08/12/18 18:54 Pulse 109 H 08/12/18 19:30 Respiratory Rate 22 08/12/18 19:30 Respiratory Effort 08/12/18 18:59 Respiratory Depth Normal 08/12/18 18:59 Respiratory Pattern Normal 08/12/18 18:59 Blood Pressure 152/103 H 08/12/18 18:54 Pulse Oximetry 97 08/12/18 19:30 Oxygen Delivery Method Room Air 08/12/18 19:30 Oxygen Flow Rate 0 08/12/18 19:30 Pain Level 10 08/12/18 18:54
== END 2018-08-13 01:03 | disposition home or self-care (01) ==
LOC: ER 20:35
PROVIDERS: Emergency Provider Emergency Medicine; PCP Nurse Practitioner
DX: F10.20 Alcohol dependence, uncomplicated (principal); J44.9 Chronic obstructive pulmonary disease, unspecified; Z53.21 Procedure and treatment not carried out due to patient leaving prior to being seen by health care provider; Z93.2 Ileostomy status; F17.210 Nicotine dependence, cigarettes, uncomplicated
CPT/HCPCS: 93005; 94640; 99283; 93010; J7620

== ENCOUNTER 2018-12-12 11:35 | Outpatient (REF) | payer MEDICAID, SELFPAY ==
[2018-12-12 21:28] LABS: Abs Immature Grans 0.16 k/cumm (0.0-0.09); Absolute Basophil Count 0.04 k/cumm (0.0-0.2); Absolute Eosinophil Count 0.03 k/cumm (0.0-0.7); Absolute Lymphocyte Count 1.22 k/cumm (1.2-3.4); Absolute Monocyte Count 0.84 k/cumm (0.11-0.7); Basophils % 0.4; Eosinophils % 0.3; HCT 31.8 % (40.0-50.0); HGB 10.5 g/dL (13.5-17.5); Immature Grans % 1.6; Lymphocytes % 12.3; Mean Corpuscular Hemoglobin 36.5 pg (27.0-33.0); Mean Corpuscular Volume 110.4 fL (80-95); Mean Platelet Volume 10.9 fL (8.0-11.0); Monocytes % 8.5; Neutrophils % 76.9; Platelet Count 249 x1000/uL (130-400); RBC 2.88 m/cumm (4.50-6.00); RBC Distribution Width 14.9 % (11.8-14.1); White Blood Cell Count 9.89 k/cumm (4.4-10.8)
[2018-12-12 21:43] LABS: Iron 128 ug/dL (50-175); Total Iron Binding Capacity 154 ug/dL (250-450); Transferrin Sat 83 % (20-55)
[2018-12-12 21:58] LABS: ALT 77 U/L (12-78); AST 113 U/L (15-37); Alkaline Phosphatase 474 U/L (46-116); Anion Gap 12.9 mmol/L (3-11); BUN 6 mg/dL (7-18); Bilirubin, Total 0.6 mg/dL (0.2-1.0); CO2 23.1 mmol/L (21.0-32.0); CREATININE 0.86 mg/dL (0.70-1.30); Calcium 8.4 mg/dL (8.5-10.1); Chloride 101 mmol/L (98-107); Glucose 114 mg/dL (70-100); Magnesium 0.8 mg/dL (1.8-2.4); Potassium 4.4 mmol/L (3.5-5.1); Sodium 137 mmol/L (136-145); Vitamin B12 550 pg/mL (193-986)
[2018-12-12 22:48] LABS: Diff Comment RBC Morph Reviewed; Macrocytosis 3+; Stomatocytes 2+
[2018-12-14 08:24] LABS: Vitamin D 25 Total 116.6 ng/ml (30-100)
== END 2018-12-12 11:55 ==
LOC: NCHCN 11:35
PROVIDERS: PCP Nurse Practitioner Family; Visit Provider Nurse Practitioner Family
DX: K76.0 Fatty (change of) liver, not elsewhere classified (principal); E55.9 Vitamin D deficiency, unspecified; F41.8 Other specified anxiety disorders; R00.0 Tachycardia, unspecified; J44.9 Chronic obstructive pulmonary disease, unspecified; M54.5 Low back pain; K46.9 Unspecified abdominal hernia without obstruction or gangrene
CPT/HCPCS: 80053; 82306; 82607; 83540; 83550; 83735; 85025

== ENCOUNTER 2018-12-21 18:14 | Outpatient (REF) | payer MEDICAID, SELFPAY ==
[2018-12-21 22:29] LABS: Magnesium 1.1 mg/dL (1.8-2.4)
== END 2018-12-21 18:34 ==
LOC: NCHCN 18:14
PROVIDERS: PCP Nurse Practitioner Family; Visit Provider Nurse Practitioner Family
DX: E83.42 Hypomagnesemia (principal)
CPT/HCPCS: 83735

== ENCOUNTER 2018-12-27 06:15 | Inpatient (IN) | payer MEDICAID, SELFPAY ==
[2018-12-27] VITALS (50 sets, daily range): BP systolic 104–147; BP diastolic 55–97; PULSE 67–114; RESP 14–43; TEMP 35.6–36.7; O2SAT 93–100
--- NOTE | 2018-12-27 06:37 | ED.GENADUL_ITS ---
Discharge Plan Discharge Details Chief Complaint: Abd Prob Primary Care Provider: Victoria Alanis ED Provider: Jason Goldberg Home Meds and New Rx's Prescriptions: No Action omeprazole 40 mg Capsule,Delayed Release(Dr/Ec) 40 mg PO DAILY RF: 0 cholecalciferol (vitamin D3) [Vitamin D3] 1,000 unit Capsule 5,000 unit PO DAILY RF: 0 metoprolol succinate 25 mg Tablet Extended Release 24 Hr 25 mg PO BID RF: 0 nicotine 7 mg/24 hr Patch 24 Hour 7 mg Transdermal .Q24H RF: 0 Spiriva with HandiHaler 18 mcg Capsule, W/Inhalation Device 1 cap Inhalation DAILY RF: 0 multivitamin [Multiple Vitamins] 1 TAB tablet 1 tab PO DAILY RF: 0 folic acid 1 MG tablet 1 mg PO DAILY Qty: 30 RF: 0 thiamine mononitrate (vit B1) [Vitamin B-1 (mononitrate)] 100 MG tablet 100 mg PO DAILY Qty: 30 RF: 0 albuterol sulfate [ProAir HFA] 200 PUFF/INH HFA aerosol inhaler 200 puff Inhalation Q4H PRNQty: 1 RF: 0 Medical Decision Making 6:43 --63-year-old male with history of ileostomy, ventral hernia, here with severe abdominal pain about his hernia, tender over hernia. Hernia is large and seems to reduce easily. Patient is tachycardic and appears uncomfortable. Consider acute surgical pathology including bowel obstruction. Plan to CT abdomen pelvis. Labs to assess creatinine and liver function and lipase. I will give Dilaudid 1 mg IV for pain. Patient remain n.p.o. and receive IV fluids. 8:00 -- Labs reviewed: lactate 2.4, nl WBC. Hypomag and hypokalemia noted. Will give mag 2g IV and plan on potassium replacement to follow. CT of the abdomen pelvis interpreted by radiology: ABDOMEN: Liver: Ill-defined hypodensity in the liver adjacent to the gallbladder, not seen on prior study, questionable significance. Gallbladder and bile ducts: Distended gallbladder. Dilated common bile duct. Pancreas: No CT evidence for acute pancreatitis. Spleen: No splenomegaly. Adrenals: Adrenal thickening. Kidneys and ureters: Right renal cyst again noted. No hydronephrosis or CT evidence for pyelonephritis. Stomach and bowel: Right lower quadrant ileostomy. Again noted is rectus diastases with protrusion of bowel loops. Multiple abnormally dilated small bowel loops are identified, with multifocal tethering and narrowing of small bowel seen in the right mid to lower abdomen. Findings are consistent with obstruction, with a closed-loop component. Internal hernia/adhesions should be considered. Appendix: No evidence of appendicitis. PELVIS: Bladder: No acute findings. Reproductive: Enlarged, heterogeneous prostate. ABDOMEN and PELVIS: Intraperitoneal space: No free air. Vasculature: Arterial calcifications. No aneurysm identified in the visualized portion of the aorta. IMPRESSION: 1. Findings consistent with small bowel obstruction with closed-loop component as described above. 2. Nonacute findings as outlined above. 8:35 -- Spoke with Dr. Madsen. I reviewed ED presentation and course including diagnostic result. She will evaluate the patient in the emergency department. Care signed out to Dr. Marquez. Plan to follow-up with surgery recommendation and disposition patient. Patient will need additional potassium replacement. HPI General Mode of arrival: EMS . Date/Time Provider Initiated Documentation: 12/27/18 06:29 . Limitations to Documentation: no limitations . Information obtained by: patient . HPI Narrative: 63-year-old male with history of ileostomy and ventral hernia here with chief complaint of abdominal pain. Patient notes that pain started 1 week ago and has persisted. Pain is now severe and worse on palpation of his hernia and with deep inspiration. He has associated nausea. He had 2 loose stools this morning. Patient also notes he has had some intermittent headache and lightheadedness. Patient is scheduled to have ileostomy reversal next month. Related Data Home Medications Medication Instructions Recorded Confirmed albuterol sulfate [ProAir HFA] 200 puff INHALATION Q4H PRN #1 inh 01/23/18 12/27/18 folic acid 1 mg PO DAILY #30 tab 01/23/18 12/27/18 multivitamin [Multiple Vitamins] 1 tab PO DAILY tab 01/23/18 12/27/18 thiamine mononitrate (vit B1) 100 mg PO DAILY #30 tab 01/23/18 12/27/18 [Vitamin B-1 (mononitrate)] cholecalciferol (vitamin D3) 5,000 unit PO DAILY 05/29/18 12/27/18 [Vitamin D3] omeprazole 40 mg PO DAILY 05/29/18 12/27/18 metoprolol succinate 25 mg PO BID 07/12/18 12/27/18 nicotine 7 mg TRANSDERMAL .Q24H 07/12/18 12/27/18 tiotropium bromide [Spiriva with 1 cap INHALATION DAILY 07/12/18 12/27/18 HandiHaler] Previous Rx's Medication Instructions Recorded albuterol sulfate [ProAir HFA] 200 puff INHALATION Q4H PRN #1 inh 01/23/18 folic acid 1 mg PO DAILY #30 tab 01/23/18 multivitamin [Multiple Vitamins] 1 tab PO DAILY tab 01/23/18 thiamine mononitrate (vit B1) 100 mg PO DAILY #30 tab 01/23/18 [Vitamin B-1 (mononitrate)] Allergies Allergy/AdvReac Type Severity Reaction Status Date / Time No Known Allergies Allergy Unverified 12/27/18 06:22 General Stated Complaint: Abd Prob CADE: 2 Review of Systems Review of Systems All systems reviewed & are unremarkable except as noted in HPI and below Constitutional Reports fever(s) Cardiovascular Denies chest pain and Reports dyspnea (Chronic, patient notes COPD) Respiratory Reports dyspnea (Chronic, patient notes COPD) Gastrointestinal Reports as per HPI, Denies melena, Denies hematochezia, Reports loose stools, Reports nausea and Denies hematemesis PFSH Social History Smoking/Tobacco Use Status: Former Tobacco Use Alcohol Intake: never Drug use: Occasionally Substance use type: does not use Do you feel safe at home: Yes Do you feel safe in your relationship?: Yes Exam Const General: cooperative and no acute distress HENMT Mouth: moist mucous membranes Eyes Conjunctivae: normal conjunctivae Sclera: normal sclerae Neck Neck: trachea midline and supple Resp Auscultation: clear to auscultation bilaterally, no rales, no rhonchi and no wheezes Cardio Rate: tachycardic Rhythm: regular rhythm GI Palpation: soft, not firm, no guarding, hernia ventral, not rigid and tender (Over hernia) Skin General skin exam: no rashes or lesions noted Neuro General: alert, awake and tone normal Extrem General: no edema Course Vital Signs Temperature 36.7 C 12/27/18 06:15 Pulse 114 H 12/27/18 06:15 Respiratory Rate 20 12/27/18 06:15 Blood Pressure 132/94 H 12/27/18 06:15 Pulse Oximetry 100 05/15/19 06:15 Temperature 36.7 C 12/27/18 06:15 Temperature Source Temporal Artery Scan 12/27/18 06:15 Pulse 114 H 12/27/18 06:15 Respiratory Rate 20 12/27/18 06:15 Blood Pressure 132/94 H 12/27/18 06:15 Blood Pressure Position Sitting 12/27/18 06:15 Pulse Oximetry 100 12/27/18 06:15 Oxygen Delivery Method Room Air 12/27/18 06:15 Oxygen Flow Rate 0 12/27/18 06:15 Pain Level 8 12/27/18 06:15 Sign Out Sign Out Data: Sign Out Comment: Follow-up on surgery recommendation and disposition patient Last updated by Jason Goldberg MD at 12/27/18 08:42
[2018-12-27] MEDS: HYDROmorphone 2 MG/ML VIAL 0.5 MG IVP ×4 (06:41→12:33)
[2018-12-27] MEDS: Lactated Ringers 1,000 ML 125 ML IV ×2 (06:41→08:38)
[2018-12-27 06:45] LABS: Lactate 2.4 mmol/L (0.6-1.4)
[2018-12-27 06:46] LABS: Absolute Basophil Count 0.05 k/cumm (0.0-0.2); Absolute Eosinophil Count 0.03 k/cumm (0.0-0.7); Absolute Lymphocyte Count 1.16 k/cumm (1.2-3.4); Absolute Monocyte Count 0.73 k/cumm (0.11-0.7); Absolute Neutrophil Count 7.56 k/cumm (1.2-6.7); Basophils % 0.5; Eosinophils % 0.3; HCT 34.3 % (40.0-50.0); HGB 11.7 g/dL (13.5-17.5); Mean Corp. HGB Concentration 34.1 g/dL (32.0-36.0); Mean Corpuscular Hemoglobin 37.6 pg (27.0-33.0); Mean Corpuscular Volume 110.3 fL (80-95); Mean Platelet Volume 8.5 fL (8.0-11.0); Monocytes % 7.6; Neutrophils % 78.6; Platelet Count 307 x1000/uL (130-400); RBC 3.11 m/cumm (4.50-6.00); RBC Distribution Width 14.1 % (11.8-14.1); White Blood Cell Count 9.63 k/cumm (4.4-10.8)
[2018-12-27 06:57] LABS: ALT 26 U/L (12-78); AST 38 U/L (15-37); Albumin 3.3 g/dL (3.4-5.0); Alkaline Phosphatase 172 U/L (46-116); Anion Gap 10.4 mmol/L (3-11); BUN 11 mg/dL (7-18); Bilirubin, Total 0.4 mg/dL (0.2-1.0); CO2 26.6 mmol/L (21.0-32.0); CREATININE 0.91 mg/dL (0.70-1.30); Calcium 9.1 mg/dL (8.5-10.1); Chloride 96 mmol/L (98-107); Glucose 188 mg/dL (70-100); Lipase 130 U/L (73-393); Magnesium 1.1 mg/dL (1.8-2.4); Potassium 3.2 mmol/L (3.5-5.1); Sodium 133 mmol/L (136-145); Total Protein 7.3 g/dL (6.4-8.2)
--- NOTE | 2018-12-27 07:15 | DI.CT_ITS ---
SYMPTOM/DIAGNOSIS: MIDLINE VENTRAL HERNIA, ABD PAIN ABDOMEN AND PELVIC CT: CT examination of the abdomen and pelvis was performed with a bolus infusion of 64 cc's of Omnipaque 350. Images obtained through the lung bases are unremarkable. Liver and spleen appear normal. No pancreatic abnormality is seen. Mild gallbladder dilatation noted. No significant biliary ductal dilatation. Adrenals and kidneys unremarkable except for an incidental right upper pole renal cyst. No evidence of urinary tract obstruction. Abdominal aorta is of normal diameter and no major vascular abnormality is seen. No significant adenopathy identified in the abdomen or pelvis. There is a prior sigmoid anastomosis and there is a right ileostomy. There are multiple loops of markedly dilatated fluid filled small bowel in the mid abdomen which were not present on previous CT of 07/12/18. There may be tethering of the bowel loops in the right lower quadrant raising the possibility of a closed loop obstruction. No evidence of perforation. Moderate free fluid noted in the pelvis. CONCLUSION: Findings consistent with small bowel obstruction, the possibility of closed loop obstruction is raised. Please see above discussion.
[2018-12-27] MEDS: Omnipaque 350 MG/ML 100 ML BTL IJ (07:19)
[2018-12-27] MEDS: Normal Saline Flush 10 ML SYR IVP ×5 (07:20→23:52)
[2018-12-27] MEDS: MAGNESIUM SULFATE 2 GM/50 ML BAG IVPB (07:25)
--- NOTE | 2018-12-27 07:58 | DI.VRAD_ITS ---
EXAM: CT Abdomen and Pelvis With Contrast EXAM DATE/TIME: 12/27/2018 6:37 AM CLINICAL HISTORY: 63 years old, male; Abdominal pain; Localized; Prior surgery; Surgery date: 6+ months; Surgery type: Colon resection 10 months ago due to infection, hernia 5 months ago. Pain around hernia, increasing TECHNIQUE: Imaging protocol: Axial computed tomography images of the abdomen and pelvis with intravenous contrast. Coronal and sagittal reformatted images were created and reviewed. Radiation optimization: All CT scans at this facility use at least one of these dose optimization techniques: automated exposure control; mA and/or kV adjustment per patient size (includes targeted exams where dose is matched to clinical indication); or iterative reconstruction. Contrast material: OMNIPAQUE 350; Contrast volume: 64 ml; Contrast route: IV; COMPARISON: CT Abdomen^ROUTINE ABDOMEN PELVIS WITH CONTRAST (Adult) 07/12/2018 1:53 PM FINDINGS: Lungs: Hyperinflation at the lung bases. ABDOMEN: Liver: Ill-defined hypodensity in the liver adjacent to the gallbladder, not seen on prior study, questionable significance. Gallbladder and bile ducts: Distended gallbladder. Dilated common bile duct. Pancreas: No CT evidence for acute pancreatitis. Spleen: No splenomegaly. Adrenals: Adrenal thickening. Kidneys and ureters: Right renal cyst again noted. No hydronephrosis or CT evidence for pyelonephritis. Stomach and bowel: Right lower quadrant ileostomy. Again noted is rectus diastases with protrusion of bowel loops. Multiple abnormally dilated small bowel loops are identified, with multifocal tethering and narrowing of small bowel seen in the right mid to lower abdomen. Findings are consistent with obstruction, with a closed-loop component. Internal hernia/adhesions should be considered. Appendix: No evidence of appendicitis. PELVIS: Bladder: No acute findings. Reproductive: Enlarged, heterogeneous prostate. ABDOMEN and PELVIS: Intraperitoneal space: No free air. Vasculature: Arterial calcifications. No aneurysm identified in the visualized portion of the aorta. IMPRESSION: 1. Findings consistent with small bowel obstruction with closed-loop component as described above. 2. Nonacute findings as outlined above. THIS REPORT CONTAINS FINDINGS THAT MAY BE CRITICAL TO PATIENT CARE. The findings were verbally communicated via telephone conference with OTTO LAKHANI at 7:47 AM EDT on 12/27/2018. The findings were acknowledged and understood. Dictated and Authenticated by: Nelia Ash MD. Ordering:WARREN Gomez MD
[2018-12-27] MEDS: Ondansetron 4 MG/2 ML VIAL (09:00)
[2018-12-27] MEDS: POTASSIUM CHLORIDE/0.9% NACL 1,000 ML 100 MEQ IV (09:09)
[2018-12-27 09:51] LABS: Lactate-non-spesis 1.5 mmol/l (0.6-1.4)
--- NOTE | 2018-12-27 10:12 | W.PM.HP.N ---
Date of service: 12/27/18 Time of Service: 10:13 Assessment and Plan (1) possible alcohol withdrawal: Current visit: Yes Status: Acute ETOH assessment and w/ drawl prevention protocol (2) Diverticulitis: Current visit: Yes Status: Acute (3) Weight loss: Current visit: Yes Status: Acute requires nutrional assist once able to eat. hifh protein diet vs protein supp (4) Chronic bronchitis: Current visit: Yes Status: Acute spirva and albuterol nebs prn pulm toilet hx of chronic bronchitis and steriod use- last is 08/01 (5) Alcoholism /alcohol abuse: Current visit: Yes Status: Acute (6) Noncompliance: Current visit: Yes Status: Acute (7) Nicotine addiction: Current visit: Yes Status: Acute candis patch (8) Abnormal blood electrolyte level: Current visit: Yes Status: Acute adjusted (9) HTN (hypertension): Current visit: Yes Status: Chronic metoprolol (10) Tachycardia: Current visit: Yes Status: Acute (11) COPD (chronic obstructive pulmonary disease): Current visit: Yes Status: Chronic (12) Malnutrition: Current visit: Yes Status: Acute see above (13) Ventral hernia: Current visit: Yes Status: Acute (14) SBO (small bowel obstruction): Current visit: Yes Status: Acute fluids NG decompression pain control pulm toilet DVT proph supportive care pt is poor sx candidate and high risk for wound complication/recurrent hernia secondary to nutrition/steroids/ETOH abuse/noncompliance conisder dietary consult once pat is able to eat if pt require sx intervention- would transfer to [facility] currently hemodynamically stable and no signs of bowel strangulation/infection and cont w/ conservative management. (15) B12 nutritional deficiency: Current visit: Yes Status: Acute History of Present Illness Chief Complaint: sbo Narrative: pt here today w/ SBO. He states that abdom pain/nausea/distention has been going on off/on for about 1 months time. He has been ignoring it. This am pain b/c severe he could not tolerate and came into the ED. + Nause no V. + bm/ileostomy outpt today. pt is scheduled for ieleostomy takedown in 1 months time. pt is very poor historian. He is on candis patches b/c surgery at [facility] wanted him tobacco free prior to take-down. I have info on ETOH status and/or if he is still drinking at this time. pt has a hx of non compliance/is a poor historian. signif longstanding ETOH abuse. Unclear if he has a PCP. I have no op reports from [facility]. It appears from CT he has had just sigmoid resection and diverting ileostomy. Pt has a massive hernia and loss of domain/loss of functional ant abdom wall. c/o SOB. c/o abdominal pain. He has a massive ventral wall hernia- it is just skin over bowel. The bowels are distended and fluid fluid but soft and easily reducible. They hernia is very lg and this is not the source of the obstructions- rather internal hernia vs adhesions. from ED today: HPI Narrative: 63-year-old male with history of ileostomy and ventral hernia here with chief complaint of abdominal pain. Patient notes that pain started 1 week ago and has persisted. Pain is now severe and worse on palpation of his hernia and with deep inspiration. He has associated nausea. He had 2 loose stools this morning. Patient also notes he has had some intermittent headache and lightheade no information in EMR. pt has had mult visits in ED. information taken from those notes. Pt had subtotal colectomy at [facility] for colon infection pt is suppos to be undergoing ostomy reversal in 1 months time at [facility]. He says he has stopped smoking and is on a N. patch. from 08/12/18 ED visit note: 62 yo male with hx of ileostomy with abdominal pain for over 4 months, chronic alcoholism, who comes in with ems with abdominal pain. HE denies any increased pain today or acute worsening, states it feels the same as it has the past few months when he has had negative imaging and lab work studies. HE denies any chest pain or shortness of breath on my exam. He has stool in his ostomy with pink well perfused tissue seen at the ostomy site. HE has no abdominal distention. HAs a midline abdominal hernia that is soft and reduces easily. HE has no guarding or rebound. He is scheduled to f/u with a surgeon at [facility] next month. I recommended to the patient that we perform lab work and a ct to eval for abdominal and cardiac causes of his pain. HE declines this. HE does have smell of alcohol on his breath but is caox4 with stable gait. He has capacity to make his own decisions and understands the risks of leaving without a workup including and becoming disabled and is willing to take these risks on. HE is leaving against my medical advice. He was strongly encouraged to follow up with his pcp and surgeons and return if he worsens or changes his mind Differential Diagnosis abdominal hernia, sbo, appendicitis ECG Data Attestation: I personally reviewed and interpreted this ECG (s) as follows: Prior ECG tracings: not available for review Interpretation: sinus tachycardia, rate of 115, pr 130 admission 01/30: Abdominal pain. Likely etiology for abdominal pain is acute episode of diverticulitis, which at this point, in patient appears to be recurrent. Per view of records, it appears the patient may have had imaging findings consistent with acute or subacute diverticulitis in the past, significantly in 2016 and 2017. Comparison is made with . Images were performed from the lung bases through the ischial tuberosities after IV and oral contrast. The patient is status post sigmoid anastomosis. There is a right sided ileostomy. There is no evidence of obstruction, free air or free fluid. No bowel wall thickening is seen. The bladder is unremarkable. There is rectus diastasis. The heart size is normal. The lung bases are clear. The liver is mildly enlarged and shows mild fatty infiltration. The spleen, pancreas, gallbladder and adrenals are unremarkable. A cyst is again noted at the upper pole of the right kidney. Review of Systems Review of Systems All systems reviewed & are unremarkable except as noted in HPI and below and Unobtainable due to (pt is very poor historian and is unsure of what dhappened during sx. ) Constitutional Comments: pt does not smell of ETOH. he is not forthcoming about medical hx/ETOH use. previous ER notes reviewed. ENT Comments: temporal muscle wasting poor dentition pt says he is smoke free at this time Cardiovascular Comments: denies CP Respiratory Comments: chronic SOB chronic dry cough no home O2 off tobbacco + MDI use. hx of chronic bronchitis Gastrointestinal Comments: s/p sigmoid resection and primary anastomotic and diverting ileostomy, appears that this happened in 03/01 at [facility]. pt can't give any info/no info in EMR. pt was scheduled for ileostomy takedown in 1 months time. pt would appear to be very poor sx candidate from chronic COPD/malnutrition/ETOH status is unknown. BMI 15. pt has abdom wall dysfunction. This prob contributes to resp difficulties. + nausea no V. + outpt from ostomy today. Signif abodom pain. Lg hernia. this is very disstended, but reducible. This is not causing obstructive s/s. More from either internal hernia or from scar tissue from previous infection/surgery. Skin over abdom is quite taught. there is nothing covering bowels other than skin. Musculoskeletal Reports atrophy Comments: muscle wasting secondary to malnutrition Allergic/Immunologic Comments: has been off/on steroids for bronchitis in last 6m. no DM PFSH Medical History SBO (small bowel obstruction) (Acute) Ventral hernia (Acute) Malnutrition (Acute) COPD (chronic obstructive pulmonary disease) (Chronic) Tachycardia (Acute) HTN (hypertension) (Chronic) Abnormal blood electrolyte level (Acute) Nicotine addiction (Acute) Noncompliance (Acute) possible alcohol withdrawal (Acute) Diverticulitis (Acute) Weight loss (Acute) Chronic bronchitis (Acute) Alcoholism /alcohol abuse (Acute) Social History Smoking/Tobacco Use Status: Former Tobacco Use Alcohol Intake: never Drug use: Occasionally Substance use type: does not use Do you feel safe at home: Yes Do you feel safe in your relationship?: Yes Additional Social history: none of this correlates w/ physician documentation Meds Home Medications Medication Instructions Recorded Confirmed Type albuterol sulfate [ProAir HFA] 200 puff INHALATION Q4H PRN #1 inh 01/23/18 12/27/18 Rx folic acid 1 mg PO DAILY #30 tab 01/23/18 12/27/18 Rx multivitamin [Multiple Vitamins] 1 tab PO DAILY tab 01/23/18 12/27/18 Rx thiamine mononitrate (vit B1) 100 mg PO DAILY #30 tab 01/23/18 12/27/18 Rx [Vitamin B-1 (mononitrate)] cholecalciferol (vitamin D3) 5,000 unit PO DAILY 05/29/18 12/27/18 History [Vitamin D3] omeprazole 40 mg PO DAILY 05/29/18 12/27/18 History metoprolol succinate 25 mg PO BID 07/12/18 12/27/18 History nicotine 7 mg TRANSDERMAL .Q24H 07/12/18 12/27/18 History tiotropium bromide [Spiriva with 1 cap INHALATION DAILY 07/12/18 12/27/18 History HandiHaler] Allergies Allergy/AdvReac Type Severity Reaction Status Date / Time No Known Allergies Allergy Unverified 12/27/18 06:22 Exam Const General: acute distress, frail appearing and ill appearing Nutritional Appearance: cachectic, malnourished and overweight Orientation: alert, awake and oriented x3 Other: ovious pain HENMT Mouth: moist mucous membranes abnormal Other: poor dentition temporal muscle wasting musco membranes are dry no jaundice no eye pain or discharge Neck Neck: no JVD Chest Chest: normal inspection of the chest and normal palpation of entire chest wall Other: barrel chest signif muscle wasting decreased BS no rales/ronchi/wheezing Resp Effort & Inspection: normal respiratory effort, able to speak in complete sentences and paradoxical thoraco-abdominal movements (due to loss of abdominal wall musculature ) Auscultation: diminished lung sounds, no rales, no rhonchi and no wheezes GI Inspection: scar and visible herniation Other: loss of domain/msucle astrophy adn fascial retraction. loss of nor Results Labs : 12/27/18 06:30 12/27/18 06:30 Laboratory Results - last 24 hr 12/27/18 12/27/18 12/27/18 06:30 06:30 06:30 WBC 9.63 RBC 3.11 L Hgb 11.7 L Hct 34.3 L MCV 110.3 H MCH 37.6 H MCHC 34.1 RDW 14.1 Plt Count 307 MPV 8.5 Immature Gran % 1.0 Neutrophils % 78.6 Lymphocytes % 12.0 Monocytes % 7.6 Eosinophils % 0.3 Basophils % 0.5 Absolute Neutrophils 7.56 H Absolute Lymphocytes 1.16 L Absolute Monocytes 0.73 H Absolute Eosinophils 0.03 Absolute Basophils 0.05 Sodium 133 L Potassium 3.2 L Chloride 96 L Carbon Dioxide 26.6 Anion Gap 10.4 BUN 11 Creatinine 0.91 Estimated GFR/1.73 m2 >= 60.00 Glucose 188 H Lactate 2.4 H* Calcium 9.1 Magnesium 1.1 L Total Bilirubin 0.4 AST 38 H ALT 26 Alkaline Phosphatase 172 H Total Protein 7.3 Albumin 3.3 L Lipase 130 12/27/18 09:47 WBC RBC Hgb Hct MCV MCH MCHC RDW Plt Count MPV Immature Gran % Neutrophils % Lymphocytes % Monocytes % Eosinophils % Basophils % Absolute Neutrophils Absolute Lymphocytes Absolute Monocytes Absolute Eosinophils Absolute Basophils Sodium Potassium Chloride Carbon Dioxide Anion Gap BUN Creatinine Estimated GFR/1.73 m2 Glucose Lactate 1.5 H Calcium Magnesium Total Bilirubin AST ALT Alkaline Phosphatase Total Protein Albumin Lipase Last Vital Signs Temp 36.7 C 12/27/18 06:15 Pulse 86 12/27/18 07:45 Resp 19 12/27/18 07:50 BP 131/87 12/27/18 07:45 Pulse Ox 98 12/27/18 07:50
--- NOTE | 2018-12-27 10:38 | ED.GENADUL_ITS ---
Discharge Plan Disposition Patient Disposition: [facility] INPATIENT Condition: Improving Discharge Details Chief Complaint: Abd Prob Clinical Impression: SBO (small bowel obstruction) Primary Care Provider: Victoria Alanis ED Provider: Flaco Marquez Home Meds and New Rx's Prescriptions: No Action omeprazole 40 mg Capsule,Delayed Release(Dr/Ec) 40 mg PO DAILY RF: 0 cholecalciferol (vitamin D3) [Vitamin D3] 1,000 unit Capsule 5,000 unit PO DAILY RF: 0 metoprolol succinate 25 mg Tablet Extended Release 24 Hr 25 mg PO BID RF: 0 nicotine 7 mg/24 hr Patch 24 Hour 7 mg Transdermal .Q24H RF: 0 Spiriva with HandiHaler 18 mcg Capsule, W/Inhalation Device 1 cap Inhalation DAILY RF: 0 multivitamin [Multiple Vitamins] 1 TAB tablet 1 tab PO DAILY RF: 0 folic acid 1 MG tablet 1 mg PO DAILY Qty: 30 RF: 0 thiamine mononitrate (vit B1) [Vitamin B-1 (mononitrate)] 100 MG tablet 100 mg PO DAILY Qty: 30 RF: 0 albuterol sulfate [ProAir HFA] 200 PUFF/INH HFA aerosol inhaler 200 puff Inhalation Q4H PRNQty: 1 RF: 0 Medical Decision Making Received signout from Dr. Goldberg. Please see his note regarding details of the presentation exam and plan of care. Patient received fluids, electrolyte supplementation. Repeat lactate obtained and improved at 1.5. Patient seen by Dr. Madsen in consultation and will be admitted to her service with NG placed in the ER. Lab Data Lab results reviewed: Yes I reviewed the patient's lab results. Laboratory Results - last 24 hr 12/27/18 12/27/18 12/27/18 06:30 06:30 06:30 WBC 9.63 RBC 3.11 L Hgb 11.7 L Hct 34.3 L MCV 110.3 H MCH 37.6 H MCHC 34.1 RDW 14.1 Plt Count 307 MPV 8.5 Immature Gran % 1.0 Neutrophils % 78.6 Lymphocytes % 12.0 Monocytes % 7.6 Eosinophils % 0.3 Basophils % 0.5 Absolute Neutrophils 7.56 H Absolute Lymphocytes 1.16 L Absolute Monocytes 0.73 H Absolute Eosinophils 0.03 Absolute Basophils 0.05 Sodium 133 L Potassium 3.2 L Chloride 96 L Carbon Dioxide 26.6 Anion Gap 10.4 BUN 11 Creatinine 0.91 Estimated GFR/1.73 m2 >= 60.00 Glucose 188 H Lactate 2.4 H* Calcium 9.1 Magnesium 1.1 L Total Bilirubin 0.4 AST 38 H ALT 26 Alkaline Phosphatase 172 H Total Protein 7.3 Albumin 3.3 L Lipase 130 12/27/18 09:47 WBC RBC Hgb Hct MCV MCH MCHC RDW Plt Count MPV Immature Gran % Neutrophils % Lymphocytes % Monocytes % Eosinophils % Basophils % Absolute Neutrophils Absolute Lymphocytes Absolute Monocytes Absolute Eosinophils Absolute Basophils Sodium Potassium Chloride Carbon Dioxide Anion Gap BUN Creatinine Estimated GFR/1.73 m2 Glucose Lactate 1.5 H Calcium Magnesium Total Bilirubin AST ALT Alkaline Phosphatase Total Protein Albumin Lipase HPI General Mode of arrival: EMS . Date/Time Provider Initiated Documentation: 12/27/18 06:29 . Limitations to Documentation: no limitations . Information obtained by: patient . Related Data Home Medications Medication Instructions Recorded Confirmed albuterol sulfate [ProAir HFA] 200 puff INHALATION Q4H PRN #1 inh 01/23/18 12/27/18 folic acid 1 mg PO DAILY #30 tab 01/23/18 12/27/18 multivitamin [Multiple Vitamins] 1 tab PO DAILY tab 01/23/18 12/27/18 thiamine mononitrate (vit B1) 100 mg PO DAILY #30 tab 01/23/18 12/27/18 [Vitamin B-1 (mononitrate)] cholecalciferol (vitamin D3) 5,000 unit PO DAILY 05/29/18 12/27/18 [Vitamin D3] omeprazole 40 mg PO DAILY 05/29/18 12/27/18 metoprolol succinate 25 mg PO BID 07/12/18 12/27/18 nicotine 7 mg TRANSDERMAL .Q24H 07/12/18 12/27/18 tiotropium bromide [Spiriva with 1 cap INHALATION DAILY 07/12/18 12/27/18 HandiHaler] Previous Rx's Medication Instructions Recorded albuterol sulfate [ProAir HFA] 200 puff INHALATION Q4H PRN #1 inh 01/23/18 folic acid 1 mg PO DAILY #30 tab 01/23/18 multivitamin [Multiple Vitamins] 1 tab PO DAILY tab 01/23/18 thiamine mononitrate (vit B1) 100 mg PO DAILY #30 tab 01/23/18 [Vitamin B-1 (mononitrate)] Allergies Allergy/AdvReac Type Severity Reaction Status Date / Time No Known Allergies Allergy Unverified 12/27/18 06:22 General Stated Complaint: Abd Prob CADE: 2 PFSH Social History Smoking/Tobacco Use Status: Former Tobacco Use Alcohol Intake: never Drug use: Occasionally Substance use type: does not use Do you feel safe at home: Yes Do you feel safe in your relationship?: Yes Course Vital Signs Temperature 36.7 C 12/27/18 06:15 Pulse 114 H 12/27/18 06:15 Respiratory Rate 20 12/27/18 06:15 Blood Pressure 132/94 H 12/27/18 06:15 Pulse Oximetry 100 12/27/18 06:15 Temperature 36.7 C 12/27/18 06:15 Temperature Source Temporal Artery Scan 12/27/18 06:15 Pulse 86 12/27/18 07:45 Pulse 89 12/27/18 07:50 Respiratory Rate 19 12/27/18 07:50 Blood Pressure 131/87 12/27/18 07:45 Blood Pressure Mean 97 12/27/18 07:45 Blood Pressure Position Sitting 12/27/18 06:15 Pulse Oximetry 98 12/27/18 07:50 Oxygen Delivery Method Room Air 12/27/18 06:15 Oxygen Flow Rate 0 12/27/18 06:15 Pain Level 8 12/27/18 06:15 Lab/Test Results Lab/Test Results: Laboratory Tests Range/Units 12/27/18 12/27/18 12/27/18 06:30 06:30 06:30 WBC (4.4-10.8) k/cumm 9.63 RBC (4.50-6.00) m/cumm 3.11 L Hgb (13.5-17.5) g/dL 11.7 L Hct (40.0-50.0) % 34.3 L MCV (80-95) fL 110.3 H MCH (27.0-33.0) pg 37.6 H MCHC (32.0-36.0) g/dL 34.1 RDW (11.8-14.1) % 14.1 Plt Count (130-400) x1000/uL 307 MPV (8.0-11.0) fL 8.5 Immature Gran % 1.0 Neutrophils % 78.6 Lymphocytes % 12.0 Monocytes % 7.6 Eosinophils % 0.3 Basophils % 0.5 Absolute Neutrophils (1.2-6.7) k/cumm 7.56 H Absolute Lymphocytes (1.2-3.4) k/cumm 1.16 L Absolute Monocytes (0.11-0.7) k/cumm 0.73 H Absolute Eosinophils (0.0-0.7) k/cumm 0.03 Absolute Basophils (0.0-0.2) k/cumm 0.05 Sodium (136-145) mmol/L 133 L Potassium (3.5-5.1) mmol/L 3.2 L Chloride (98-107) mmol/L 96 L Carbon Dioxide (21.0-32.0) mmol/L 26.6 Anion Gap (3-11) mmol/L 10.4 BUN (7-18) mg/dL 11 Creatinine (0.70-1.30) mg/dL 0.91 Estimated GFR/1.73 m2 (mL/min/1.73m2) >= 60.00 Glucose (70-100) mg/dL 188 H Lactate (0.6-1.4) mmol/L 2.4 H* Calcium (8.5-10.1) mg/dL 9.1 Magnesium (1.8-2.4) mg/dL 1.1 L Total Bilirubin (0.2-1.0) mg/dL 0.4 AST (15-37) U/L 38 H ALT (12-78) U/L 26 Alkaline Phosphatase (46-116) U/L 172 H Total Protein (6.4-8.2) g/dL 7.3 Albumin (3.4-5.0) g/dL 3.3 L Lipase (73-393) U/L 130 Sign Out Sign Out Data: Sign Out Comment: Follow-up on surgery recommendation and disposition patient Last updated by Jason Goldberg MD at 12/27/18 08:42
[2018-12-27] MEDS: Pantoprazole 40 MG VIAL IVP (12:34)
[2018-12-27] MEDS: Enoxaparin 40 MG/0.4 ML SYR SC (12:35)
[2018-12-27] MEDS: HYDROmorphone 2 MG/ML VIAL 1 MG IVP ×3 (13:48→23:36)
[2018-12-27] MEDS: ACETAMINOPHEN 1,000 MG/100 ML BTL 400 MG IVPB ×2 (13:48→20:28)
[2018-12-27] MEDS: MAGNESIUM SULFATE 8.12 MEQ, MULTIVITAMIN 10 ML, THIAMINE 100 MG, FOLIC ACID 1 MG in Nor... 120 MG IV (15:38)
[2018-12-27 15:53] LABS: Vitamin B12 285 pg/mL (193-986)
[2018-12-27] MEDS: Metoprolol CR 25 MG TABCR PO (20:27)
[2018-12-27] MEDS: Ondansetron 4 MG/2 ML VIAL IVP ×2 (20:28→23:51)
[2018-12-27] MEDS: Normal Saline 1,000 ML 125 ML IV (23:51)
[2018-12-27] MEDS: MAGNESIUM SULFATE 1 GM/100 ML BAG IVPB (23:51)
[2018-12-28] MEDS: LORazepam 1 MG TAB PO/SL (03:39)
[2018-12-28] MEDS: ACETAMINOPHEN 1,000 MG/100 ML BTL 400 MG IVPB ×3 (03:40→20:24)
[2018-12-28] MEDS: Normal Saline 1,000 ML 125 ML IV (07:09)
[2018-12-28 07:51] LABS: Iron 41 ug/dL (50-175); Total Iron Binding Capacity 198 ug/dL (250-450); Transferrin Sat 21 % (20-55)
[2018-12-28 07:55] LABS: ALT 15 U/L (12-78); AST 26 U/L (15-37); Albumin 2.4 g/dL (3.4-5.0); Alkaline Phosphatase 125 U/L (46-116); Anion Gap 7.1 mmol/L (3-11); BUN 8 mg/dL (7-18); Bilirubin, Total 0.4 mg/dL (0.2-1.0); CO2 25.9 mmol/L (21.0-32.0); CREATININE 0.59 mg/dL (0.70-1.30); Calcium 7.6 mg/dL (8.5-10.1); Chloride 105 mmol/L (98-107); Ferritin 224 ng/mL (8-388); Glucose 105 mg/dL (70-100); Potassium 3.9 mmol/L (3.5-5.1); Sodium 138 mmol/L (136-145); Total Protein 5.6 g/dL (6.4-8.2)
[2018-12-28 08:00] VITALS: BP 105/71; PULSE 111; RESP 24; TEMP 36.8; O2SAT 95
[2018-12-28] MEDS: HYDROmorphone 2 MG/ML VIAL 1 MG IVP ×5 (09:16→22:58)
[2018-12-28] MEDS: Nicotine 7 MG/24 HR PATCH TD (09:16)
[2018-12-28] MEDS: MAGNESIUM SULFATE 8.12 MEQ, MULTIVITAMIN 10 ML, THIAMINE 100 MG, FOLIC ACID 1 MG in Nor... 120 MG IV (09:23)
[2018-12-28] MEDS: Ondansetron 4 MG/2 ML VIAL IVP ×2 (09:24→18:40)
[2018-12-28] MEDS: Metoprolol CR 25 MG TABCR PO ×2 (09:24→20:30)
[2018-12-28] MEDS: Normal Saline Flush 10 ML SYR IVP ×4 (09:24→17:04)
--- NOTE | 2018-12-28 11:43 | W.PM.PROGNOT ---
Date of Service Date of service: 12/28/18 Time of Service: 11:43 Assessment and Plan (1) SBO (small bowel obstruction): Current visit: Yes Status: Acute 63 y/o male s/p subtotal colectomy and ileostomy. Plans for reversal in January 2019 at [facility] noted. Continue NG decompression. Will follow-up AXR and confirm NG placement. May consider starting TPN tomorrow to optimize nutritional status for upcoming surgery if unable to resume po soon. Subjective Interval history since last seen: Chart reviewed. Seen with nurse at bedside. Patient notes that he is intermittently getting better. He still has occasional pains in the midabdomen. He has emptied his ileostomy this morning. He notes that there was gas and enteric output in the bag. He notes that he had a large volume of output yesterday morning prior to admission but has had less output than usual since admission. Exam Const General: cooperative and frail appearing Nutritional Appearance: cachectic Orientation: alert and oriented x3 HENMT Head: normocephalic and atraumatic Eyes Sclera: sclerae normal Resp Effort & Inspection: normal respiratory effort and able to speak in complete sentences Cardio Jugular venous pressure: no JVD GI Inspection: non-distended, visible herniation (midline - soft, mildly tender, no erythema or induration) and other (NG - yellow, bilious drainage) Palpation: soft, not firm, no guarding and tender (mildly tender at hernia site) Auscultation: hypoactive bowel sounds Skin General skin exam: no rashes or lesions noted and no jaundice Objective Objective Clinical Data: Abnormal lab results 12/27/18 12/28/18 12/28/18 Range/Units 06:30 06:37 06:37 Creatinine 0.59 L D (0.70-1.30) mg/dL Glucose 105 H D (70-100) mg/dL Lactate 2.4 H* (0.6-1.4) mmol/L Calcium 7.6 L (8.5-10.1) mg/dL Iron 41 L (50-175) ug/dL TIBC 198 L (250-450) ug/dL Alkaline Phosphatase 125 H (46-116) U/L Total Protein 5.6 L (6.4-8.2) g/dL Albumin 2.4 L (3.4-5.0) g/dL Vital Signs Temperature 36.8 C 12/28/18 08:00 Temperature Source Tympanic 12/28/18 08:00 Pulse 111 H 12/28/18 08:00 Pulse Rhythm Regular 12/28/18 07:45 Pulse 82 12/27/18 11:01 Respiratory Rate 24 12/28/18 08:00 Respiratory Effort 12/28/18 07:45 Respiratory Depth Shallow 12/28/18 07:45 Respiratory Pattern Normal 12/28/18 07:45 Blood Pressure 105/71 12/28/18 08:00 Blood Pressure Mean 96 12/27/18 11:01 Blood Pressure Position Sitting 12/27/18 06:15 Pulse Oximetry 95 12/28/18 08:00 Oxygen Delivery Method Room Air 12/28/18 08:00 Oxygen Flow Rate 0 12/28/18 08:00 Pain Level 8 12/28/18 09:16 Intake & Output 12/27/18 12/27/18 12/28/18 11:59 23:59 11:59 Intake Total 1095.833 / 3030.833 1935 / 3030.833 2241.033 / 2241.033 Output Total 400 / 700 300 / 700 700 / 700 Balance 695.833 / 2330.833 1635 / 2330.833 1541.033 / 1541.033 Weight 45.2 kg Intake: IV 1095.833 / 3030.833 1935 / 3030.833 2241.033 / 2241.033 Output: Gastric Drainage 400 / 600 200 / 600 700 / 700 Right Nare 100 / 300 200 / 300 700 / 700 Urine 100 / 100 Other: Urine Color Yellow Urine Appearance Clear Clear Urine Odor None Stool Size Small Stool Characteristics Liquid Voiding Methods Urinal Laboratory Results WBC 9.63 k/cumm (4.4-10.8) 12/27/18 06:30 RBC 3.11 m/cumm (4.50-6.00) L 12/27/18 06:30 Hgb 11.7 g/dL (13.5-17.5) L 12/27/18 06:30 Hct 34.3 % (40.0-50.0) L 12/27/18 06:30 MCV 110.3 fL (80-95) H 12/27/18 06:30 MCH 37.6 pg (27.0-33.0) H 12/27/18 06:30 MCHC 34.1 g/dL (32.0-36.0) 12/27/18 06:30 RDW 14.1 % (11.8-14.1) 12/27/18 06:30 Plt Count 307 x1000/uL (130-400) 12/27/18 06:30 MPV 8.5 fL (8.0-11.0) 12/27/18 06:30 Immature Gran % 1.0 12/27/18 06:30 Neutrophils % 78.6 12/27/18 06:30 Lymphocytes % 12.0 12/27/18 06:30 Monocytes % 7.6 12/27/18 06:30 Eosinophils % 0.3 12/27/18 06:30 Basophils % 0.5 12/27/18 06:30 Absolute Neutrophils 7.56 k/cumm (1.2-6.7) H 12/27/18 06:30 Absolute Lymphocytes 1.16 k/cumm (1.2-3.4) L 12/27/18 06:30 Absolute Monocytes 0.73 k/cumm (0.11-0.7) H 12/27/18 06:30 Absolute Eosinophils 0.03 k/cumm (0.0-0.7) 12/27/18 06:30 Absolute Basophils 0.05 k/cumm (0.0-0.2) 12/27/18 06:30 Sodium 138 mmol/L (136-145) 12/28/18 06:37 Potassium 3.9 mmol/L (3.5-5.1) D 12/28/18 06:37 Chloride 105 mmol/L (98-107) 12/28/18 06:37 Carbon Dioxide 25.9 mmol/L (21.0-32.0) 12/28/18 06:37 Anion Gap 7.1 mmol/L (3-11) 12/28/18 06:37 BUN 8 mg/dL (7-18) 12/28/18 06:37 Creatinine 0.59 mg/dL (0.70-1.30) L D 12/28/18 06:37 Estimated GFR/1.73 m2 >= 60.00 (mL/min/1.73m2) 12/28/18 06:37 Glucose 105 mg/dL (70-100) H D 12/28/18 06:37 Lactate 1.5 mmol/l (0.6-1.4) H 12/27/18 09:47 Calcium 7.6 mg/dL (8.5-10.1) L 12/28/18 06:37 Magnesium 1.1 mg/dL (1.8-2.4) L 12/27/18 06:30 Iron 41 ug/dL (50-175) L 12/28/18 06:37 TIBC 198 ug/dL (250-450) L 12/28/18 06:37 Transferrin % Sat 21 % (20-55) 12/28/18 06:37 Ferritin 224 ng/mL (8-388) 12/28/18 06:37 Total Bilirubin 0.4 mg/dL (0.2-1.0) 12/28/18 06:37 AST 26 U/L (15-37) 12/28/18 06:37 ALT 15 U/L (12-78) 12/28/18 06:37 Alkaline Phosphatase 125 U/L (46-116) H 12/28/18 06:37 Total Protein 5.6 g/dL (6.4-8.2) L 12/28/18 06:37 Albumin 2.4 g/dL (3.4-5.0) L 12/28/18 06:37 Lipase 130 U/L (73-393) 12/27/18 06:30 Vitamin B12 285 pg/mL (193-986) 12/27/18 06:30
--- NOTE | 2018-12-28 12:55 | DI.RAD_ITS ---
SYMPTOMS/DIAGNOSIS: SMALL BOWEL OBSTRUCTION, NASOGASTRIC TUBE PLACEMENT ABDOMEN: A single view of the abdomen was obtained in the supine position. There is an NG tube overlying the gastric fundus. There are multiple dilated loops of small bowel as noted on yesterday's CT. No gross interval change in appearance.
[2018-12-28] MEDS: Enoxaparin 40 MG/0.4 ML SYR SC (13:36)
[2018-12-28] MEDS: Pantoprazole 40 MG VIAL IVP (13:37)
[2018-12-28] MEDS: Lidocaine 2% Viscous 15 ML CUP (14:30)
--- NOTE | 2018-12-28 15:06 | PHARADMIT ---
Addendum entered by Kathy Ritchie 01/01/19 13:40: Pharmacy Note Subjective diet advanced to soft high protein Objective VS-okay Na-133 mag-1.8(up) K+4.5(up) phos-2.7(up) h/h-9.6/29.6 CIWA-4 Assessment TPN rate decreased and to be discontinued this evening acetaminophen changed to PO PRN calcium carbonate/vit D, cyanocobalamin and thiamine ordered Plan continue to watch VS, labs and for med changes Addendum entered by Halima Ling 12/31/18 12:47: Pharmacy Note Subjective c/o throat discomfort, large amounts liquid stool from ostomy, NGT draining clear Objective VS ok, HR>100, CIWA 1, Pain 8/10 Lytes: K+ down 3.0, Mag same 1.7, Phos up 1.8, albumin down 2.2 Assessment IV APAP for abdominal/headache pain Keeping TPN same formulation today, giving KCL bolus 20meq IV x 2 runs Chloraseptic spray ordered for discomfort from NG tube Plan mentioned weaning TPN rate tomorrow, starting normal diet Addendum entered by Halima Ling 12/30/18 13:03: Pharmacy Note Subjective Ileostomy has minimal output, has NG tube in place, c/o bloating Objective BP 122/79, HR>100, Lower back pain 8/10, CIWA 7, BG 112 no weight x 3 days, I/O very positive K+ 3.4, Mag 1.7, Phos 1.4 Assessment Adding KPhos and Mag to TPN, albumin 2.4 IVF's dc'd Abdominal Xray: reportedly slightly worse SBO Plan Reversal of ileostomy planned for January 2019 @ [facility], continue bowel rest for now May need f/u Abd.CT scan Original Note: Admission Pharmacy Clinical Review SMALL BOWEL OBSTRUCTION Code Status Full Code Current Weight 45.2 kg Renally Cleared and Narrow Therapeutic Index Meds CRCL 61ML/MIN QTc Value / Action Taken 452 BP Control, Fever 105/71 AFEBRILE Electrolytes reviewed MAG WAS 1.1 K 3.2, K NOW 3.9 DVT Prophylaxis ENOXAPARIN Opiate Usage / Scheduled Bowel Regimen Ordered PRN/NO Plt/SCr for Heparin / Enoxaparin 307/0.59 INR for Warfarin NA H/H stable, WBC/Bands 11.7/34.3 WBC 9.63 Antibiotic appropriateness NA Cultures and Sensitivities NA Surgical ABX d/c within 24 hr NA DM control / Insulin Dosing NA Heart Failure (Check EF%) (CASIMIRO's, B-Block, Diuretics) IV to PO Switch Home Meds Reviewed Home Meds Not Ordered folic acid 1 mg PO DAILY #30 tab 01/23/18 multivitamin [Multiple Vitamins] 1 tab PO DAILY thiamine mononitrate (vit B1) [Vitamin B-1 (mononitrate)] 100 mG cholecalciferol (vitamin D3) [Vitamin D3] 5,000 unit PO DAILY omeprazole 40 mg PO DAILY (PANTOPRAZOLE INPT) Comments
--- NOTE | 2018-12-28 16:02 | PDOC.CMIN ---
Care Management Initial Assess REASON FOR HOSPITALIZATION:: SBO PAST MEDICAL HISTORY/PAST SURGICAL HISTORY:: Hx of alchohol withdrawal, trauma, chronic-possibly recurrent diverticulitis, abdominal tenderness, COPD, modest elevation in liver function tests, hx of upper GI bleeding, chronic alcoholism with chronic gait disturbance, chronic tobacco abuse with chronic cough and exertional dyspnea PREVIOUS FUNCTIONAL STATUS/SOCIAL/FAMILY SUPPORTS:: Vito resides alone in [place], his nineteen year old son resides with him. In addition within the last few monthes his son's friend, girlfriend and child have also moved in. 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 He has six children and several grandchildren of whom he is close; though reports he is lonely because none of them live locally. 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 CURRENT FUNCTIONAL STATUS:: Vito was sleeping when CM attemtped to meet with him; NG tube in place. Has patient been provided with information about the portal?: No Did the patient sign up for the portal?: No CODE STATUS:: Full Code INSURANCE COVERAGE / FINANCIAL ISSUES:: [place] CURRENT HOME/COMMUNITY SERVICES/EQUIPMENT:: cole Leahy. PRIMARY CARE PHYSICIAN:: Scott Alanis POTENTIAL DISCHARGE NEEDS:: Follow up appointments. PATIENT/FAMILY EDUCATION NEEDS:: Review of discharge instructions; discuss Ask Me Three. ANTICIPATED BARRIERS TO DISCHARGE:: CIWA protocol. TRANSPORTATION:: Via private vehicle. PLAN:: Vito will continue to be closely monitored utilizing CIWA protocol while being treated for SBO. CM will continue to follow and support discharge planning considerations.
[2018-12-28 16:26] VITALS: BP 101/66; PULSE 97; RESP 18; TEMP 36.6; O2SAT 97
--- NOTE | 2018-12-28 16:46 | INITIAL_ITS ---
Care Management Initial Assess REASON FOR HOSPITALIZATION:: SBO PAST MEDICAL HISTORY/PAST SURGICAL HISTORY:: Hx of alchohol withdrawal, trauma, chronic-possibly recurrent diverticulitis, abdominal tenderness, COPD, modest elevation in liver function tests, hx of upper GI bleeding, chronic alcoholism with chronic gait disturbance, chronic tobacco abuse with chronic cough and exertional dyspnea PREVIOUS FUNCTIONAL STATUS/SOCIAL/FAMILY SUPPORTS:: Vito resides alone in [place], his nineteen year old son resides with him. In addition within the last few monthes his son's friend, girlfriend and child have also moved in. 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 He has six children and several grandchildren of whom he is close; though reports he is lonely because none of them live locally. 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 CURRENT FUNCTIONAL STATUS:: Vito was sleeping when CM attemtped to meet with him; NG tube in place. Has patient been provided with information about the portal?: No Did the patient sign up for the portal?: No CODE STATUS:: Full Code INSURANCE COVERAGE / FINANCIAL ISSUES:: [place] CURRENT HOME/COMMUNITY SERVICES/EQUIPMENT:: cole Leahy. PRIMARY CARE PHYSICIAN:: Scott Alanis POTENTIAL DISCHARGE NEEDS:: Follow up appointments. PATIENT/FAMILY EDUCATION NEEDS:: Review of discharge instructions; discuss Ask Me Three. ANTICIPATED BARRIERS TO DISCHARGE:: CIWA protocol. TRANSPORTATION:: Via private vehicle. PLAN:: Vito will continue to be closely monitored utilizing CIWA protocol while being treated for SBO. CM will continue to follow and support discharge planning considerations.
[2018-12-28] MEDS: Lidocaine 2% Jelly 11 ML SYR UR (17:11)
[2018-12-28] MEDS: Lidocaine 2% Jelly 11 ML SYR (18:12)
[2018-12-28 20:38] VITALS: BP 124/75; PULSE 128; RESP 22; TEMP 36.9; O2SAT 93
[2018-12-29] VITALS (7 sets, daily range): BP systolic 100–125; BP diastolic 57–78; PULSE 99–112; RESP 16–24; TEMP 36.6–37.1; O2SAT 91–95
[2018-12-29] MEDS: Normal Saline 1,000 ML 125 ML IV (00:25)
[2018-12-29] MEDS: LORazepam 1 MG TAB PO/SL (02:41)
[2018-12-29] MEDS: ACETAMINOPHEN 1,000 MG/100 ML BTL 400 MG IVPB ×3 (05:28→21:07)
[2018-12-29] MEDS: HYDROmorphone 2 MG/ML VIAL 1 MG IVP ×4 (05:28→21:11)
[2018-12-29] MEDS: Ondansetron 4 MG/2 ML VIAL IVP (05:28)
--- NOTE | 2018-12-29 07:00 | DI.RAD_ITS ---
SYMPTOM/DIAGNOSIS: F/U SMALL BOWEL OBSTRUCTION FLAT AND UPRIGHT ABDOMEN: Comparison is made with 12/28/18. A nasogastric tube remains present in the stomach. There is a tiny left pleural effusion. There is dilatation of loops of small bowel with slight improvement when compared with the previous day's exam. Suture material is noted in the low pelvis. IMPRESSION: Persistent dilated small bowel loops with question of slight improvement when compared with the previous day's exam.
[2018-12-29 07:17] LABS: Abs Immature Grans 0.03 k/cumm (0.0-0.09); Absolute Basophil Count 0.01 k/cumm (0.0-0.2); Absolute Eosinophil Count 0.06 k/cumm (0.0-0.7); Absolute Lymphocyte Count 0.57 k/cumm (1.2-3.4); Absolute Monocyte Count 0.94 k/cumm (0.11-0.7); Absolute Neutrophil Count 6.39 k/cumm (1.2-6.7); Basophils % 0.1; Eosinophils % 0.8; HCT 30.7 % (40.0-50.0); HGB 9.7 g/dL (13.5-17.5); Immature Grans % 0.4; Lymphocytes % 7.1; Mean Corp. HGB Concentration 31.6 g/dL (32.0-36.0); Mean Corpuscular Hemoglobin 36.5 pg (27.0-33.0); Mean Corpuscular Volume 115.4 fL (80-95); Mean Platelet Volume 9.4 fL (8.0-11.0); Monocytes % 11.8; Neutrophils % 79.8; Platelet Count 211 x1000/uL (130-400); RBC 2.66 m/cumm (4.50-6.00); RBC Distribution Width 14.4 % (11.8-14.1)
[2018-12-29 07:22] LABS: Anion Gap 9.7 mmol/L (3-11); BUN 11 mg/dL (7-18); CO2 26.3 mmol/L (21.0-32.0); CREATININE 0.46 mg/dL (0.70-1.30); Calcium 7.3 mg/dL (8.5-10.1); Chloride 105 mmol/L (98-107); Glucose 96 mg/dL (70-100); Magnesium 1.8 mg/dL (1.8-2.4); Potassium 3.6 mmol/L (3.5-5.1); Sodium 141 mmol/L (136-145)
[2018-12-29 07:48] LABS: Diff Comment Agrees w/ Instrument; Macrocytosis 3+
[2018-12-29] MEDS: Metoprolol CR 25 MG TABCR PO ×2 (08:44→21:11)
[2018-12-29] MEDS: Nicotine 7 MG/24 HR PATCH TD (08:45)
[2018-12-29] MEDS: Normal Saline Flush 10 ML SYR IVP ×5 (09:59→21:12)
[2018-12-29] MEDS: MAGNESIUM SULFATE 8.12 MEQ, MULTIVITAMIN 10 ML, THIAMINE 100 MG, FOLIC ACID 1 MG in Nor... 120 MG IV (10:24)
[2018-12-29 11:06] LABS: Prealbumin 15 mg/dL (20-40)
[2018-12-29] MEDS: Enoxaparin 40 MG/0.4 ML SYR SC (13:06)
[2018-12-29] MEDS: Pantoprazole 40 MG VIAL IVP (13:08)
--- NOTE | 2018-12-29 13:38 | PDOC.CMPRO ---
- If Service Date Differs Date of service: 12/29/18 Time of Service: 13:38 Care Management Progress Note S/O: Vito is sitting up in bed when this freelance writer visits, he is pleasant and receptive to discussion. Vito continues to require an NG tube at this time, and there is a PICC consult in for today, as per MD notes Pt may require TPN. No change in DC plan at this time. A: 63 y/o male admitted 12/27/18 for Small bowel obstruction P: Vito will remain as an inpatient at this time due to small bowel obstruction. He will return home with no services once ready.
--- NOTE | 2018-12-29 14:06 | CMPROGNOTE_ITS ---
- If Service Date Differs Date of service: 12/29/18 Time of Service: 13:38 Care Management Progress Note S/O: Vito is sitting up in bed when this auto service writer visits, he is pleasant and receptive to discussion. Vito continues to require an NG tube at this time, and there is a PICC consult in for today, as per MD notes Pt may require TPN. No change in DC plan at this time. A: 63 y/o male admitted 12/27/18 for Small bowel obstruction P: Vito will remain as an inpatient at this time due to small bowel obstruction. He will return home with no services once ready.
--- NOTE | 2018-12-29 14:36 | W.NUTCONSULT ---
Date of service: 12/29/18 Time of Service: 14:36 Nutritional Consult ASSESSMENT: Mr. Toussaint is s/p subtotal colectomy and illeostomy. He is scheduled for reversal in January. He currently is NPO as he has a small bowel obstruction. He is 69 and 45.2 kg. His BMI is 15.2 kg/m2 consistent with underweight. His weights here at [facility] over the past year have been stable. Nutrition consult for TPN. His estimated energy needs are 1400 kcal/day (30 kcal/kg/day). His estimated protein needs are 60-80g/day which is 1.3-1.5 g/kg/day. NUTRITIONAL DIAGNOSIS: Inability to take oral foods and fluids related to SBO. INTERVENTION: Agree with initiation of TPN to prevent malnutrition especially in the setting of upcoming surgery. Would recommend the following regimen: 2.0L of D10%, amino acids 4.25% and 250 ml of 20% lipid emulsion given daily. MONITORING AND EVALUATION: 1. Will monitor progress. 2. Will evaluate nutrition care plan ongoing and adjust as needed. Thank you for the consult. Time Spent in Nutritional Counseling and Treatment: ADIS
--- NOTE | 2018-12-29 14:44 | NS.NUTBLAN_ITS ---
Date of service: 12/29/18 Time of Service: 14:36 Nutritional Consult ASSESSMENT: Mr. Toussaint is s/p subtotal colectomy and illeostomy. He is scheduled for reversal in January. He currently is NPO as he has a small bowel obstruction. He is 69 and 45.2 kg. His BMI is 15.2 kg/m2 consistent with underweight. His weights here at [facility] over the past year have been stable. Nutrition consult for TPN. His estimated energy needs are 1400 kcal/day (30 kcal/kg/day). His estimated protein needs are 60-80g/day which is 1.3-1.5 g/kg/day. NUTRITIONAL DIAGNOSIS: Inability to take oral foods and fluids related to SBO. INTERVENTION: Agree with initiation of TPN to prevent malnutrition especially in the setting of upcoming surgery. Would recommend the following regimen: 2.0L of D10%, amino acids 4.25% and 250 ml of 20% lipid emulsion given daily. MONITORING AND EVALUATION: 1. Will monitor progress. 2. Will evaluate nutrition care plan ongoing and adjust as needed. Thank you for the consult. Time Spent in Nutritional Counseling and Treatment: ADIS
--- NOTE | 2018-12-29 17:47 | PGE_ITS ---
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 Plans for reversal in January 2019 at [facility] noted. Continue NG decompression. TPN to be started today. Appreciate nutrition consult. Follow-up AXR in am. Subjective Interval history since last seen: Patient notes intermittent abdominal pains. Minimal ileostomy output. NG 1800 cc output so far today. AXR slight improvement in bowel gas pattern. Exam Const General: cooperative, comfortable and no acute distress Nutritional Appearance: cachectic Orientation: alert and oriented x3 HENMT Head: normocephalic and atraumatic Resp Effort & Inspection: normal respiratory effort and able to speak in complete sentences GI Inspection: non-distended and visible herniation Palpation: soft, not firm, no guarding, not rigid and tender (mildly tender at large hernia site - soft) Skin General skin exam: no rashes or lesions noted and no jaundice Objective Objective Clinical Data: Abnormal lab results 12/28/18 12/29/18 12/29/18 Range/Units 06:37 06:18 06:18 RBC 2.66 L (4.50-6.00) m/cumm Hgb 9.7 L (13.5-17.5) g/dL Hct 30.7 L (40.0-50.0) % MCV 115.4 H (80-95) fL MCH 36.5 H (27.0-33.0) pg MCHC 31.6 L (32.0-36.0) g/dL RDW 14.4 H (11.8-14.1) % Absolute Lymphocytes 0.57 L (1.2-3.4) k/cumm Absolute Monocytes 0.94 H (0.11-0.7) k/cumm Creatinine 0.46 L (0.70-1.30) mg/dL Calcium 7.3 L (8.5-10.1) mg/dL Prealbumin 15 L (20-40) mg/dL Vital Signs Temperature 37.1 C 12/29/18 15:48 Temperature Source Tympanic 12/29/18 15:48 Pulse 108 H 12/29/18 15:48 Pulse Rhythm Regular 12/29/18 16:05 Pulse 82 05/15/19 11:01 Respiratory Rate 20 12/29/18 15:48 Respiratory Effort Labored 12/29/18 16:05 Respiratory Depth Deep 12/29/18 16:05 Respiratory Pattern Normal 12/29/18 16:05 Blood Pressure 100/72 12/29/18 15:48 Blood Pressure Mean 96 12/27/18 11:01 Blood Pressure Position Sitting 12/27/18 06:15 Pulse Oximetry 95 12/29/18 15:48 Oxygen Delivery Method Room Air 12/29/18 15:48 Oxygen Flow Rate 0 12/29/18 15:48 Pain Level 7 12/29/18 15:45 Intake & Output 12/28/18 12/29/18 12/29/18 23:59 11:59 23:59 Intake Total 1613.2 / 3854.233 1756.250 / 2732.250 976 / 2732.250 Output Total 500 / 1200 2010 / 2260 250 / 2260 Balance 1113.2 / 2654.233 -253.750 / 472.250 726 / 472.250 Intake: IV 1613.2 / 3854.233 1756.250 / 2732.250 976 / 2732.250 Output: Gastric Drainage 300 / 1000 1550 / 1800 250 / 1800 Right Nare 300 / 1000 1550 / 1800 250 / 1800 Urine 200 / 200 460 / 460 Other: Urine Color Yellow Dark Ally Urine Appearance Clear Clear Clear Voiding Methods Urinal Laboratory Results WBC 8.00 k/cumm (4.4-10.8) 12/29/18 06:18 RBC 2.66 m/cumm (4.50-6.00) L 12/29/18 06:18 Hgb 9.7 g/dL (13.5-17.5) L 12/29/18 06:18 Hct 30.7 % (40.0-50.0) L 12/29/18 06:18 MCV 115.4 fL (80-95) H 12/29/18 06:18 MCH 36.5 pg (27.0-33.0) H 12/29/18 06:18 MCHC 31.6 g/dL (32.0-36.0) L 12/29/18 06:18 RDW 14.4 % (11.8-14.1) H 12/29/18 06:18 Plt Count 211 x1000/uL (130-400) 12/29/18 06:18 MPV 9.4 fL (8.0-11.0) 12/29/18 06:18 Immature Gran % 0.4 12/29/18 06:18 Neutrophils % 79.8 12/29/18 06:18 Lymphocytes % 7.1 12/29/18 06:18 Monocytes % 11.8 12/29/18 06:18 Eosinophils % 0.8 12/29/18 06:18 Basophils % 0.1 12/29/18 06:18 Absolute Neutrophils 6.39 k/cumm (1.2-6.7) 12/29/18 06:18 Absolute Lymphocytes 0.57 k/cumm (1.2-3.4) L 12/29/18 06:18 Absolute Monocytes 0.94 k/cumm (0.11-0.7) H 12/29/18 06:18 Absolute Eosinophils 0.06 k/cumm (0.0-0.7) 12/29/18 06:18 Absolute Basophils 0.01 k/cumm (0.0-0.2) 12/29/18 06:18 Differential Comment Agrees w/ instrument 12/29/18 06:18 RBC Morphology See below 12/29/18 06:18 Macrocytosis 3+ 12/29/18 06:18 Sodium 141 mmol/L (136-145) 12/29/18 06:18 Potassium 3.6 mmol/L (3.5-5.1) 12/29/18 06:18 Chloride 105 mmol/L (98-107) 12/29/18 06:18 Carbon Dioxide 26.3 mmol/L (21.0-32.0) 12/29/18 06:18 Anion Gap 9.7 mmol/L (3-11) 12/29/18 06:18 BUN 11 mg/dL (7-18) 12/29/18 06:18 Creatinine 0.46 mg/dL (0.70-1.30) L 12/29/18 06:18 Estimated GFR/1.73 m2 >= 60.00 (mL/min/1.73m2) 12/29/18 06:18 Glucose 96 mg/dL (70-100) 12/29/18 06:18 Lactate 1.5 mmol/l (0.6-1.4) H 12/27/18 09:47 Calcium 7.3 mg/dL (8.5-10.1) L 12/29/18 06:18 Magnesium 1.8 mg/dL (1.8-2.4) 12/29/18 06:18 Iron 41 ug/dL (50-175) L 12/28/18 06:37 TIBC 198 ug/dL (250-450) L 12/28/18 06:37 Transferrin % Sat 21 % (20-55) 12/28/18 06:37 Ferritin 224 ng/mL (8-388) 12/28/18 06:37 Total Bilirubin 0.4 mg/dL (0.2-1.0) 12/28/18 06:37 AST 26 U/L (15-37) 12/28/18 06:37 ALT 15 U/L (12-78) 12/28/18 06:37 Alkaline Phosphatase 125 U/L (46-116) H 12/28/18 06:37 Total Protein 5.6 g/dL (6.4-8.2) L 12/28/18 06:37 Albumin 2.4 g/dL (3.4-5.0) L 12/28/18 06:37 Prealbumin 15 mg/dL (20-40) L 12/28/18 06:37 Lipase 130 U/L (73-393) 12/27/18 06:30 Vitamin B12 285 pg/mL (193-986) 12/27/18 06:30 Objective Narrative Objective Narrative: Patient Name: MAGGIE WILLOUGHBY #: [id number]: MS Ordering Provider: Radha Madsen DOAccount #: [id number]: ADM IN Primary Care Provider: Victoria Alanis Date of Exam: 12/29/18Sex: M Admission Date: 12/27/18 : 1955 Age: 63 Exam(s) a RAD:XR abdomen flat & upright SYMPTOM/DIAGNOSIS: F/U SMALL BOWEL OBSTRUCTION FLAT AND UPRIGHT ABDOMEN: Comparison is made with 12/28/18. A nasogastric tube remains present in the stomach. There is a tiny left pleural effusion. There is dilatation of loops of small bowel with slight improvement when compared with the previous day's exam. Suture material is noted in the low pelvis. IMPRESSION: Persistent dilated small bowel loops with question of slight improvement when compared with the previous day's exam. Ordered By: Radha Madsen DO CC: Dictated By: Radha Catalan M.D. 12/29/1806 <Electronically signed by Radha Catalan M.D.> 12/29/1875 Transcribed By: Chana Lagunas 12/29/1831 This is privileged, confidential information intended only for the provider named. Any use or distribution by any person other than this provider is strictly prohibited. If you receive this report in error, please notify us immediately at [phone] and return the original report to us at the address above. Thank-you.
[2018-12-30] VITALS (7 sets, daily range): BP systolic 116–149; BP diastolic 71–96; PULSE 98–128; RESP 18–22; TEMP 36.7–37.2; O2SAT 91–94
[2018-12-30] MEDS: HYDROmorphone 2 MG/ML VIAL 1 MG IVP ×4 (03:38→21:30)
[2018-12-30] MEDS: ACETAMINOPHEN 1,000 MG/100 ML BTL 400 MG IVPB ×3 (03:39→21:30)
[2018-12-30 06:56] LABS: HGB 9.3 g/dL (13.5-17.5); Mean Corp. HGB Concentration 32.1 g/dL (32.0-36.0); Mean Corpuscular Hemoglobin 37.2 pg (27.0-33.0); Mean Platelet Volume 9.2 fL (8.0-11.0); Platelet Count 252 x1000/uL (130-400); RBC Distribution Width 14.1 % (11.8-14.1); White Blood Cell Count 7.92 k/cumm (4.4-10.8)
--- NOTE | 2018-12-30 07:00 | DI.RAD_ITS ---
SYMPTOM/DIAGNOSIS: F/U SMALL BOWEL OBSTRUCTION FLAT AND UPRIGHT ABDOMEN: Comparison is made with 12/29/18. A nasogastric tube again projects in the fundus of the stomach. There are small bilateral pleural effusions. No free air is seen. Again noted are multiple dilated loops of small bowel, not significantly changed. A right ostomy and suture material in the lower pelvis are again noted. IMPRESSION: No significant change in small bowel obstruction.
[2018-12-30 07:16] LABS: ALT 14 U/L (12-78); AST 22 U/L (15-37); Albumin 2.4 g/dL (3.4-5.0); Alkaline Phosphatase 119 U/L (46-116); Anion Gap 5.8 mmol/L (3-11); BUN 11 mg/dL (7-18); Bilirubin, Total 0.3 mg/dL (0.2-1.0); CO2 29.2 mmol/L (21.0-32.0); CREATININE 0.57 mg/dL (0.70-1.30); Chloride 105 mmol/L (98-107); Glucose 112 mg/dL (70-100); Magnesium 1.7 mg/dL (1.8-2.4); Potassium 3.4 mmol/L (3.5-5.1); Sodium 140 mmol/L (136-145); Total Protein 5.5 g/dL (6.4-8.2)
[2018-12-30 07:25] LABS: Calcium 7.7 mg/dL (8.5-10.1)
[2018-12-30 07:36] LABS: PHOSPHORUS 1.4 mg/dL (2.6-4.7)
[2018-12-30] MEDS: Metoprolol CR 25 MG TABCR PO ×2 (07:48→21:30)
[2018-12-30] MEDS: Normal Saline Flush 10 ML SYR IVP ×4 (07:49→18:20)
[2018-12-30 07:53] LABS: INR 1.1 (0.9-1.1); Prothrombin Time 10.7 sec (9.3-11.0)
[2018-12-30] MEDS: LORazepam 1 MG TAB PO/SL ×2 (09:36→13:23)
[2018-12-30] MEDS: Nicotine 7 MG/24 HR PATCH TD (09:43)
--- NOTE | 2018-12-30 10:04 | DI.VRAD_ITS ---
EXAM: XR Abdomen, 2 Views EXAM DATE/TIME: 12/30/2018 12:01 AM CLINICAL HISTORY: 63 years old, male; Abdominal pain; Generalized; Patient HX: Sbo TECHNIQUE: Imaging protocol: Frontal view of the abdomen/pelvis with upright view of the abdomen. COMPARISON: CR XR abdomen flat upright 12/29/2018 8:19 AM FINDINGS: Tubes, catheters and devices: An enteric feeding tube is present, with its tip located in the stomach in good position. Gastrointestinal tract: Increasing caliber of the dilated loops of small bowel may represent exacerbation of small bowel obstruction. Again noted are multiple air-fluid levels. Intraperitoneal space: Normal. No free air. Bones/joints: Unremarkable for age. IMPRESSION: Increasing caliber of the dilated loops of small bowel may represent exacerbation of small bowel obstruction. Again noted are multiple air-fluid levels. Dictated and Authenticated by: Natalie Coleman MD. Ordering:LUIS M Roach MD
--- NOTE | 2018-12-30 12:20 | W.PM.PROGNOT ---
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 Plans for reversal in January 2019 at [facility] noted. Follow-up AXR films from this am reviewed. Per report slightly worse, but essentially unchanged on my review. WBC WNL. Lytes noted. Replacing potassium, Mg, phosphorous in TPN. Continue bowel rest and NG decompression with TPN. PT consulted. Follow-up labs. Consider repeat CT with oral contrast pending course. Subjective Interval history since last seen: Patient seen with nurse at bedside. Patient was reportedly restless this am and pulling on NG tube. Medicated per [facility] protocol. NG tube repositioned and confirmed in place on AXR this am. Patient notes that his hernia seems more protuberant and tender today. Reportedly had some clear emesis per patient. Not witnessed. AXR read by VRADS as slightly worse. NG tube placed on continuous suction briefly with 250 cc yellow, bilious fluid output then resumed to low intermittent suction. Exam Const General: cooperative and no acute distress Nutritional Appearance: cachectic Orientation: alert [facility] Head: normocephalic and atraumatic Eyes Sclera: sclerae normal Resp Effort & Inspection: normal respiratory effort and able to speak in complete sentences Auscultation: no crackles and diminished lung sounds Cardio Jugular venous pressure: no JVD Rate: regular rate Rhythm: regular rhythm GI Inspection: non-distended and visible herniation (reducible, soft) Palpation: soft, not firm, no guarding and tender (mildly tender at hernia site) Auscultation: hypoactive bowel sounds Skin General skin exam: no rashes or lesions noted and no jaundice Objective Objective Clinical Data: Abnormal lab results 12/30/18 12/30/18 Range/Units 06:25 06:25 RBC 2.50 L (4.50-6.00) m/cumm Hgb 9.3 L (13.5-17.5) g/dL Hct 29.0 L (40.0-50.0) % MCV 116.0 H (80-95) fL MCH 37.2 H (27.0-33.0) pg Potassium 3.4 L (3.5-5.1) mmol/L Creatinine 0.57 L (0.70-1.30) mg/dL Glucose 112 H (70-100) mg/dL Calcium 7.7 L (8.5-10.1) mg/dL Phosphorus 1.4 L (2.6-4.7) mg/dL Magnesium 1.7 L (1.8-2.4) mg/dL Alkaline Phosphatase 119 H (46-116) U/L Total Protein 5.5 L (6.4-8.2) g/dL Albumin 2.4 L (3.4-5.0) g/dL Vital Signs Temperature 36.7 C 12/30/18 07:20 Temperature Source Tympanic 12/30/18 07:20 Pulse 111 H 12/30/18 07:20 Pulse Rhythm Regular 12/30/18 07:30 Pulse 82 12/27/18 11:01 Respiratory Rate 19 12/30/18 07:20 Respiratory Effort Non-Labored 12/30/18 07:30 Respiratory Depth Normal 12/30/18 07:30 Respiratory Pattern Normal 12/30/18 07:30 Blood Pressure 122/79 12/30/18 07:20 Blood Pressure Mean 96 12/27/18 11:01 Blood Pressure Position Sitting 12/27/18 06:15 Pulse Oximetry 94 L 12/30/18 07:20 Oxygen Delivery Method Room Air 12/30/18 07:20 Oxygen Flow Rate 0 12/30/18 07:20 Pain Level 8 12/30/18 08:00 Intake & Output 12/29/18 12/30/18 12/30/18 23:59 11:59 23:59 Intake Total 1136 / 2892.250 1348.775 / 1348.775 Output Total 850 / 2860 1050 / 1050 Balance 286 / 32.250 298.775 / 298.775 Intake: IV 1076 / 2832.250 1238.775 / 1238.775 Oral 60 / 60 110 / 110 Output: Gastric Drainage 850 / 2400 600 / 600 Right Nare 850 / 2400 600 / 600 Urine 450 / 450 Other: Urine Color Light Ally Dark Ally Urine Appearance Clear Clear Voiding Methods Indwelling Catheter Laboratory Results WBC 7.92 k/cumm (4.4-10.8) 12/30/18 06:25 RBC 2.50 m/cumm (4.50-6.00) L 12/30/18 06:25 Hgb 9.3 g/dL (13.5-17.5) L 12/30/18 06:25 Hct 29.0 % (40.0-50.0) L 12/30/18 06:25 MCV 116.0 fL (80-95) H 12/30/18 06:25 MCH 37.2 pg (27.0-33.0) H 12/30/18 06:25 MCHC 32.1 g/dL (32.0-36.0) 12/30/18 06:25 RDW 14.1 % (11.8-14.1) 12/30/18 06:25 Plt Count 252 x1000/uL (130-400) 12/30/18 06:25 MPV 9.2 fL (8.0-11.0) 12/30/18 06:25 Immature Gran % 0.4 12/29/18 06:18 Neutrophils % 79.8 12/29/18 06:18 Lymphocytes % 7.1 12/29/18 06:18 Monocytes % 11.8 12/29/18 06:18 Eosinophils % 0.8 12/29/18 06:18 Basophils % 0.1 12/29/18 06:18 Absolute Neutrophils 6.39 k/cumm (1.2-6.7) 12/29/18 06:18 Absolute Lymphocytes 0.57 k/cumm (1.2-3.4) L 12/29/18 06:18 Absolute Monocytes 0.94 k/cumm (0.11-0.7) H 12/29/18 06:18 Absolute Eosinophils 0.06 k/cumm (0.0-0.7) 12/29/18 06:18 Absolute Basophils 0.01 k/cumm (0.0-0.2) 12/29/18 06:18 Differential Comment Agrees w/ instrument 12/29/18 06:18 RBC Morphology See below 12/29/18 06:18 Macrocytosis 3+ 12/29/18 06:18 PT 10.7 sec (9.3-11.0) 12/30/18 07:30 INR 1.1 (0.9-1.1) 12/30/18 07:30 Sodium 140 mmol/L (136-145) 12/30/18 06:25 Potassium 3.4 mmol/L (3.5-5.1) L 12/30/18 06:25 Chloride 105 mmol/L (98-107) 12/30/18 06:25 Carbon Dioxide 29.2 mmol/L (21.0-32.0) 12/30/18 06:25 Anion Gap 5.8 mmol/L (3-11) 12/30/18 06:25 BUN 11 mg/dL (7-18) 12/30/18 06:25 Creatinine 0.57 mg/dL (0.70-1.30) L 12/30/18 06:25 Estimated GFR/1.73 m2 >= 60.00 (mL/min/1.73m2) 12/30/18 06:25 Glucose 112 mg/dL (70-100) H 12/30/18 06:25 Lactate 1.5 mmol/l (0.6-1.4) H 12/27/18 09:47 Calcium 7.7 mg/dL (8.5-10.1) L 12/30/18 06:25 Phosphorus 1.4 mg/dL (2.6-4.7) L 12/30/18 06:25 Magnesium 1.7 mg/dL (1.8-2.4) L 12/30/18 06:25 Iron 41 ug/dL (50-175) L 12/28/18 06:37 TIBC 198 ug/dL (250-450) L 12/28/18 06:37 Transferrin % Sat 21 % (20-55) 12/28/18 06:37 Ferritin 224 ng/mL (8-388) 12/28/18 06:37 Total Bilirubin 0.3 mg/dL (0.2-1.0) 12/30/18 06:25 AST 22 U/L (15-37) 12/30/18 06:25 ALT 14 U/L (12-78) 12/30/18 06:25 Alkaline Phosphatase 119 U/L (46-116) H 12/30/18 06:25 Total Protein 5.5 g/dL (6.4-8.2) L 12/30/18 06:25 Albumin 2.4 g/dL (3.4-5.0) L 12/30/18 06:25 Prealbumin 15 mg/dL (20-40) L 12/28/18 06:37 Lipase 130 U/L (73-393) 12/27/18 06:30 Vitamin B12 285 pg/mL (193-986) 12/27/18 06:30 Objective Narrative Objective Narrative: Patient Name: MAGGIE WILLOUGHBY #: [id number]: MS Ordering Provider: : ADM IN Primary Care Provider: Victoria Alanis Date of Exam: 12/30/18Sex: M : 1955ge: 63 Exam(s) EXAM: XR Abdomen, 2 Views EXAM DATE/TIME: 12/30/2018 12:01 AM CLINICAL HISTORY: 63 years old, male; Abdominal pain; Generalized; Patient HX: Sbo TECHNIQUE: Imaging protocol: Frontal view of the abdomen/pelvis with upright view of the abdomen. COMPARISON: CR XR abdomen flat upright 12/29/2018 8:19 AM FINDINGS: Tubes, catheters and devices: An enteric feeding tube is present, with its tip located in the stomach in good position. Gastrointestinal tract: Increasing caliber of the dilated loops of small bowel may represent exacerbation of small bowel obstruction. Again noted are multiple air-fluid levels. Intraperitoneal space: Normal. No free air. Bones/joints: Unremarkable for age. IMPRESSION: Increasing caliber of the dilated loops of small bowel may represent exacerbation of small bowel obstruction. Again noted are multiple air-fluid levels. Dictated and Authenticated by: Natalie Coleman MD. Ordering:LUIS M Roach MD Ordered By: CC: Dictated By: Reports vrad 12/30/18 0001 12/30/18 1004 Transcribed By: Trinh Ramirez This is privileged, confidential information intended only for the provider named. Any use or distribution by any person other than this provider is strictly prohibited. If you receive this report in error, please notify us immediately at [phone] and return the original report to us at the address above. Thank-you.
--- NOTE | 2018-12-30 12:27 | PGE_ITS ---
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 Plans for reversal in January 2019 at [facility] noted. Follow-up AXR films from this am reviewed. Per report slightly worse, but essentially unchanged on my review. WBC WNL. Lytes noted. Replacing potassium, Mg, phosphorous in TPN. Continue bowel rest and NG decompression with TPN. PT consulted. Follow-up labs. Consider repeat CT with oral contrast pending course. Subjective Interval history since last seen: Patient seen with nurse at bedside. Patient was reportedly restless this am and pulling on NG tube. Medicated per [facility] protocol. NG tube repositioned and confirmed in place on AXR this am. Patient notes that his hernia seems more protuberant and tender today. Reportedly had some clear emesis per patient. Not witnessed. AXR read by VRADS as slightly worse. NG tube placed on continuous suction briefly with 250 cc yellow, bilious fluid output then resumed to low intermittent suction. Exam Const General: cooperative and no acute distress Nutritional Appearance: cachectic Orientation: alert [facility] Head: normocephalic and atraumatic Eyes Sclera: sclerae normal Resp Effort & Inspection: normal respiratory effort and able to speak in complete sentences Auscultation: no crackles and diminished lung sounds Cardio Jugular venous pressure: no JVD Rate: regular rate Rhythm: regular rhythm GI Inspection: non-distended and visible herniation (reducible, soft) Palpation: soft, not firm, no guarding and tender (mildly tender at hernia site) Auscultation: hypoactive bowel sounds Skin General skin exam: no rashes or lesions noted and no jaundice Objective Objective Clinical Data: Abnormal lab results 12/30/18 12/30/18 Range/Units 06:25 06:25 RBC 2.50 L (4.50-6.00) m/cumm Hgb 9.3 L (13.5-17.5) g/dL Hct 29.0 L (40.0-50.0) % MCV 116.0 H (80-95) fL MCH 37.2 H (27.0-33.0) pg Potassium 3.4 L (3.5-5.1) mmol/L Creatinine 0.57 L (0.70-1.30) mg/dL Glucose 112 H (70-100) mg/dL Calcium 7.7 L (8.5-10.1) mg/dL Phosphorus 1.4 L (2.6-4.7) mg/dL Magnesium 1.7 L (1.8-2.4) mg/dL Alkaline Phosphatase 119 H (46-116) U/L Total Protein 5.5 L (6.4-8.2) g/dL Albumin 2.4 L (3.4-5.0) g/dL Vital Signs Temperature 36.7 C 12/30/18 07:20 Temperature Source Tympanic 12/30/18 07:20 Pulse 111 H 12/30/18 07:20 Pulse Rhythm Regular 12/30/18 07:30 Pulse 82 12/27/18 11:01 Respiratory Rate 19 12/30/18 07:20 Respiratory Effort Non-Labored 12/30/18 07:30 Respiratory Depth Normal 12/30/18 07:30 Respiratory Pattern Normal 12/30/18 07:30 Blood Pressure 122/79 12/30/18 07:20 Blood Pressure Mean 96 12/27/18 11:01 Blood Pressure Position Sitting 12/27/18 06:15 Pulse Oximetry 94 L 12/30/18 07:20 Oxygen Delivery Method Room Air 12/30/18 07:20 Oxygen Flow Rate 0 12/30/18 07:20 Pain Level 8 12/30/18 08:00 Intake & Output 12/29/18 12/30/18 12/30/18 23:59 11:59 23:59 Intake Total 1136 / 2892.250 1348.775 / 1348.775 Output Total 850 / 2860 1050 / 1050 Balance 286 / 32.250 298.775 / 298.775 Intake: IV 1076 / 2832.250 1238.775 / 1238.775 Oral 60 / 60 110 / 110 Output: Gastric Drainage 850 / 2400 600 / 600 Right Nare 850 / 2400 600 / 600 Urine 450 / 450 Other: Urine Color Light Ally Dark Ally Urine Appearance Clear Clear Voiding Methods Indwelling Catheter Laboratory Results WBC 7.92 k/cumm (4.4-10.8) 12/30/18 06:25 RBC 2.50 m/cumm (4.50-6.00) L 12/30/18 06:25 Hgb 9.3 g/dL (13.5-17.5) L 12/30/18 06:25 Hct 29.0 % (40.0-50.0) L 12/30/18 06:25 MCV 116.0 fL (80-95) H 12/30/18 06:25 MCH 37.2 pg (27.0-33.0) H 12/30/18 06:25 MCHC 32.1 g/dL (32.0-36.0) 12/30/18 06:25 RDW 14.1 % (11.8-14.1) 12/30/18 06:25 Plt Count 252 x1000/uL (130-400) 12/30/18 06:25 MPV 9.2 fL (8.0-11.0) 12/30/18 06:25 Immature Gran % 0.4 12/29/18 06:18 Neutrophils % 79.8 12/29/18 06:18 Lymphocytes % 7.1 12/29/18 06:18 Monocytes % 11.8 12/29/18 06:18 Eosinophils % 0.8 12/29/18 06:18 Basophils % 0.1 12/29/18 06:18 Absolute Neutrophils 6.39 k/cumm (1.2-6.7) 12/29/18 06:18 Absolute Lymphocytes 0.57 k/cumm (1.2-3.4) L 12/29/18 06:18 Absolute Monocytes 0.94 k/cumm (0.11-0.7) H 12/29/18 06:18 Absolute Eosinophils 0.06 k/cumm (0.0-0.7) 12/29/18 06:18 Absolute Basophils 0.01 k/cumm (0.0-0.2) 12/29/18 06:18 Differential Comment Agrees w/ instrument 12/29/18 06:18 RBC Morphology See below 12/29/18 06:18 Macrocytosis 3+ 12/29/18 06:18 PT 10.7 sec (9.3-11.0) 12/30/18 07:30 INR 1.1 (0.9-1.1) 12/30/18 07:30 Sodium 140 mmol/L (136-145) 12/30/18 06:25 Potassium 3.4 mmol/L (3.5-5.1) L 12/30/18 06:25 Chloride 105 mmol/L (98-107) 12/30/18 06:25 Carbon Dioxide 29.2 mmol/L (21.0-32.0) 12/30/18 06:25 Anion Gap 5.8 mmol/L (3-11) 12/30/18 06:25 BUN 11 mg/dL (7-18) 12/30/18 06:25 Creatinine 0.57 mg/dL (0.70-1.30) L 12/30/18 06:25 Estimated GFR/1.73 m2 >= 60.00 (mL/min/1.73m2) 12/30/18 06:25 Glucose 112 mg/dL (70-100) H 12/30/18 06:25 Lactate 1.5 mmol/l (0.6-1.4) H 12/27/18 09:47 Calcium 7.7 mg/dL (8.5-10.1) L 12/30/18 06:25 Phosphorus 1.4 mg/dL (2.6-4.7) L 12/30/18 06:25 Magnesium 1.7 mg/dL (1.8-2.4) L 12/30/18 06:25 Iron 41 ug/dL (50-175) L 12/28/18 06:37 TIBC 198 ug/dL (250-450) L 12/28/18 06:37 Transferrin % Sat 21 % (20-55) 12/28/18 06:37 Ferritin 224 ng/mL (8-388) 12/28/18 06:37 Total Bilirubin 0.3 mg/dL (0.2-1.0) 12/30/18 06:25 AST 22 U/L (15-37) 12/30/18 06:25 ALT 14 U/L (12-78) 12/30/18 06:25 Alkaline Phosphatase 119 U/L (46-116) H 12/30/18 06:25 Total Protein 5.5 g/dL (6.4-8.2) L 12/30/18 06:25 Albumin 2.4 g/dL (3.4-5.0) L 12/30/18 06:25 Prealbumin 15 mg/dL (20-40) L 12/28/18 06:37 Lipase 130 U/L (73-393) 12/27/18 06:30 Vitamin B12 285 pg/mL (193-986) 12/27/18 06:30 Objective Narrative Objective Narrative: Patient Name: MAGGIE WILLOUGHBY #: [id number]: MS Ordering Provider: : ADM IN Primary Care Provider: Victoria Alanis Date of Exam: 12/30/18Sex: M : 1955ge: 63 Exam(s) EXAM: XR Abdomen, 2 Views EXAM DATE/TIME: 12/30/2018 12:01 AM CLINICAL HISTORY: 63 years old, male; Abdominal pain; Generalized; Patient HX: Sbo TECHNIQUE: Imaging protocol: Frontal view of the abdomen/pelvis with upright view of the abdomen. COMPARISON: CR XR abdomen flat upright 12/29/2018 8:19 AM FINDINGS: Tubes, catheters and devices: An enteric feeding tube is present, with its tip located in the stomach in good position. Gastrointestinal tract: Increasing caliber of the dilated loops of small bowel may represent exacerbation of small bowel obstruction. Again noted are multiple air-fluid levels. Intraperitoneal space: Normal. No free air. Bones/joints: Unremarkable for age. IMPRESSION: Increasing caliber of the dilated loops of small bowel may represent exacerbation of small bowel obstruction. Again noted are multiple air-fluid levels. Dictated and Authenticated by: Natalie Coleman MD. Ordering:LUIS M Roach MD Ordered By: CC: Dictated By: Reports vrad 12/30/18 0001 12/30/18 1004 Transcribed By: Trinh Ramirez This is privileged, confidential information intended only for the provider named. Any use or distribution by any person other than this provider is strictly prohibited. If you receive this report in error, please notify us immediately at [phone] and return the original report to us at the address above. Thank-you.
[2018-12-30] MEDS: Insulin Aspart 300 UNITS/3 ML PEN SC (13:04)
[2018-12-30] MEDS: Pantoprazole 40 MG VIAL IVP (13:05)
[2018-12-30] MEDS: Enoxaparin 40 MG/0.4 ML SYR SC (13:06)
[2018-12-30] MEDS: Ondansetron 4 MG/2 ML VIAL IVP (18:20)
[2018-12-30] MEDS: Albuterol 2.5 MG/3 ML INH SOLN VIAL UPD (18:27)
--- NOTE | 2018-12-30 19:43 | PDOC.CMPRO ---
- If Service Date Differs Date of service: 12/30/18 Time of Service: 19:43 Care Management Progress Note S/O: Vito is alert when CM into assess. He appears to have removed his NG tube prior to CM entering the room. CM notified nurse caring for the patient. Vito is complaining of abdominal pain he states the IV pain management provides some pain control and allows him to rest. Vito was started on TPN, he continues to have large output from his NG tube when it is in place. Vito reports he continues to have difficulty with pain and nausea. He states he does have family that visits and helps keep his spirts up. A: 63 y/o male admitted 12/27/18 for Small bowel obstruction P: Vito remains inpatient at this time. He continues to need IV pain management, NG tube and TPN. Discharge disposition to be determined.
--- NOTE | 2018-12-30 19:48 | CMPROGNOTE_ITS ---
- If Service Date Differs Date of service: 12/30/18 Time of Service: 19:43 Care Management Progress Note S/O: Vito is alert when CM into assess. He appears to have removed his NG tube prior to CM entering the room. CM notified nurse caring for the patient. Vito is complaining of abdominal pain he states the IV pain management provides some pain control and allows him to rest. Vito was started on TPN, he continues to have large output from his NG tube when it is in place. Vito reports he con tinues to have difficulty with pain and nausea. He states he does have family that visits and helps keep his spirts up. A: 63 y/o male admitted 12/27/18 for Small bowel obstruction P: Vito remains inpatient at this time. He continues to need IV pain management, NG tube and TPN. Discharge disposition to be determined.
[2018-12-31] VITALS (7 sets, daily range): BP systolic 111–143; BP diastolic 72–85; PULSE 59–116; RESP 18–24; TEMP 36.8–37.3; O2SAT 93–97
[2018-12-31] MEDS: ACETAMINOPHEN 1,000 MG/100 ML BTL 400 MG IVPB ×3 (05:27→20:34)
[2018-12-31] MEDS: HYDROmorphone 2 MG/ML VIAL 1 MG IVP ×2 (05:27→16:11)
--- NOTE | 2018-12-31 07:00 | DI.RAD_ITS ---
SYMPTOM/DIAGNOSIS: DYSPNEA FLAT AND UPRIGHT ABDOMEN: Comparison is made with 12/30/18. The nasogastric tube projects in the fundus of the stomach. Minimal blunting of the costophrenic angles is again noted. There has been decrease in the amount of dilatation of previously noted dilated bowel loops. No free air is seen. Right sided ostomy is again noted. IMPRESSION: Improvement in degree of small bowel dilatation.
[2018-12-31 07:37] LABS: Abs Immature Grans 0.11 k/cumm (0.0-0.09); Absolute Basophil Count 0.02 k/cumm (0.0-0.2); Absolute Eosinophil Count 0.09 k/cumm (0.0-0.7); Absolute Lymphocyte Count 0.99 k/cumm (1.2-3.4); Absolute Monocyte Count 1.22 k/cumm (0.11-0.7); Absolute Neutrophil Count 6.45 k/cumm (1.2-6.7); Basophils % 0.2; HCT 27.9 % (40.0-50.0); HGB 9.1 g/dL (13.5-17.5); Immature Grans % 1.2; Lymphocytes % 11.1; Mean Corp. HGB Concentration 32.6 g/dL (32.0-36.0); Mean Corpuscular Volume 113.4 fL (80-95); Mean Platelet Volume 9.4 fL (8.0-11.0); Monocytes % 13.7; Neutrophils % 72.8; Platelet Count 221 x1000/uL (130-400); RBC 2.46 m/cumm (4.50-6.00); RBC Distribution Width 13.5 % (11.8-14.1); White Blood Cell Count 8.88 k/cumm (4.4-10.8)
[2018-12-31 07:56] LABS: ALT 16 U/L (12-78); AST 18 U/L (15-37); Albumin 2.2 g/dL (3.4-5.0); Alkaline Phosphatase 119 U/L (46-116); Anion Gap 6.7 mmol/L (3-11); BUN 10 mg/dL (7-18); Bilirubin, Total 0.3 mg/dL (0.2-1.0); CO2 29.3 mmol/L (21.0-32.0); CREATININE 0.46 mg/dL (0.70-1.30); Calcium 7.8 mg/dL (8.5-10.1); Chloride 99 mmol/L (98-107); Glucose 122 mg/dL (70-100); Magnesium 1.7 mg/dL (1.8-2.4); PHOSPHORUS 1.8 mg/dL (2.6-4.7); Sodium 135 mmol/L (136-145); Total Protein 5.4 g/dL (6.4-8.2)
[2018-12-31] MEDS: Metoprolol CR 25 MG TABCR PO ×2 (08:56→20:34)
[2018-12-31] MEDS: Nicotine 7 MG/24 HR PATCH TD (09:14)
[2018-12-31] MEDS: Normal Saline Flush 10 ML SYR IVP ×6 (09:14→20:35)
--- NOTE | 2018-12-31 09:32 | DI.VRAD_ITS ---
EXAM: XR Abdomen, 2 Views EXAM DATE/TIME: 12/31/2018 12:00 AM CLINICAL HISTORY: 63 years old, male; Signs and symptoms; Other: Small bowel obstruction; Prior surgery; Surgery date: 1-6 months; Surgery type: Bowel resection TECHNIQUE: Imaging protocol: Frontal view of the abdomen/pelvis with upright view of the abdomen. COMPARISON: CR XR abdomen flat upright 12/30/2018 9:11 AM FINDINGS: Gastrointestinal tract: Multiple air-fluid levels and dilated loops of bowel consistent with small bowel obstruction. There may be fewer loops of involved bowel compared to December 30. An enteric feeding tube is present, with its tip located in the stomach in good position. Intraperitoneal space: Normal. No free air. Bones/joints: Unremarkable for age. IMPRESSION: Multiple air-fluid levels and dilated loops of bowel consistent with small bowel obstruction. There may be fewer loops of involved bowel compared to December 30. Dictated and Authenticated by: Natalie Coleman MD. Ordering:LUIS M Roach MD
[2018-12-31] MEDS: Enoxaparin 40 MG/0.4 ML SYR SC (11:22)
[2018-12-31] MEDS: Albuterol 2.5 MG/3 ML INH SOLN VIAL UPD (11:54)
[2018-12-31] MEDS: Pantoprazole 40 MG VIAL IVP (12:09)
[2018-12-31] MEDS: POTASSIUM CHLORIDE 20 MEQ/100 ML BAG 50 MEQ IVPB ×2 (12:09→14:10)
--- NOTE | 2018-12-31 12:28 | IN_ITS ---
Date of service: 12/31/18 Time of Service: 11:45 PT Notes Inpatient Physical Therapy Evaluation Date: 12/31/18 Referring Doctor: Evy Roach PT Orders: PT CONSULT: Eval and treat Precautions: Standard Patient Profile/Admitting Diagnosis: Patient admitted primarily for SBO, 12/27/18, in the presence of ETOH withdrawal with h/o ETOH abuse, and complications with massive ventral wall hernia. Patient scheduled for ileostomy takedwon in 1 month at [facility]. PMHX: Per H&P EMR review: SBO (small bowel obstruction) (Acute) Ventral hernia (Acute) Malnutrition (Acute) COPD (chronic obstructive pulmonary disease) (Chronic) Tachycardia (Acute) HTN (hypertension) (Chronic) Abnormal blood electrolyte level (Acute) Nicotine addiction (Acute) Noncompliance (Acute) possible alcohol withdrawal (Acute) Diverticulitis (Acute) Weight loss (Acute) Chronic bronchitis (Acute) Alcoholism /alcohol abuse (Acute) Social History/Home Situation: Lives in a 2nd story apt with his son. Dependent on son for manager of financial reporting, grocery shopping, cooking, etc. He is I with self care. Reporting 1x/week falls, generally when getting out of his claw foot bath tub. Uses a one point cane, not interested in a walker. Current Functional Limitations: Unable to perform household level activities, of any level. Requires close supervision with basic functional transfers and ambulation. Equipment Owned/DME: Cane Subjective: Reporting in abdomen, related to hernia. Looking forward to upcoming abdominal surgery. Generally a little unstable and uneasy with initial few steps, but as he gets going he feels better and more steady. Objective: General Observation: Reclined in bed, NG tube, IV R cubital fossa, walsh Mental Status: A & O x3, pleasant, cooperative Pain:8/10 ventral abdomen Vital Signs: BP 114/76, HR 105, O2 Sat on 2L O2 95%. Post ambulation, HR 106, O2 sat on 2L 94%. ROM: Right Upper Extremity: WFL Left Upper Extremity: WFL Right Lower Extremity: WFL Left Lower Extremity: WFL Strength: Right Upper Extremity: Grossly 4+/5 Left Upper Extremity: Grossly 4+/5 Right Lower Extremity: Grossly 4/5 Left Lower Extremity: Grossly 4/5 Sensation: Intact to light touch and pressure B UE/LE's Bed Mobility/Transfers: CG sit <> stand SBA with static stand Gait: CG-S with in room ambulation (did not leave room at patient request), ~45- 50ft, one point cane R hand, unsteady. Balance: Static Sitting: Good Dynamic Sitting: Good Static Standing: Fair Dynamic Standing: Fair Special Tests: Mobility Limitations Standardized Measure [facility] AM-PAC 6 clicks Basic Mobility Inpatient Short Form: Raw Score: 22 CMS Score: 20% disability Treatment: See exercise flow sheet. Informed Consent/Education: Patient instructed in purpose of PT consult and plan of care. Assessment: Patient is a 63 year old male referred to physical therapy services with the diagnosis of SBO, with associated weakness. Patient presents with clinical signs and symptoms consistent with admitting diagnosis, in the presence of h/o ETOH abuse, malnourishment, COPD, contributing to impairment level findi ngs of: Poor balance, unsteady gait, generalized progressive weakness and lack of endurance, SOB, O2 dependency. Impairments are contributing to the following functional limitations: Assist with ambulation, supervision with transfers, unstable gait, frequent falls, and inability to manage higher level household tasks. AMPAC score 20% disability. Patient is assessed as a Low 75716 x Moderate 65964 High 86433 complexity based on the following: History: See comorbidities Examination: See above assessment for functional and impairment level problems. Presentation: Evolving Decision Making: easy, AMPAC 20% disability Goals: Goals X1 week 1. Supine-Sit I 2. Sit-Supine I 3. Sit-Stand I 4. Stand-Sit I 5. Bed-Chair I 6. Chair-Bed I 7. Gait 100ft, cane R hand, steady 8. Stairs, one flight, with on rail and cane, steady, supervision 9. Independent with home exercise program 10. Balance Static and dynamic activities Good Plan of Care/Treatment Plan: 1-2x/day, 7 days/week x 1 week. Plan of care has been reviewed with the SUPER[employer]ENDENT MA[employer]TENA[employer] providing the service under Physical Therapy direction. Initiate Physical Therapy intervention for strengthening, bed mobility, transfers, gait, stairs, balance training, use of assistive device. DISCHARGE RECOMMENDATIONS: Home with home health PT service for balance training and general strengthening. Recommend shower chair, to reduce fall risk, due to patient report of high frequency falls when showering. TREATMENT CODE/TIME: 30 min, [id number] STEFANY Castelan
--- NOTE | 2018-12-31 12:42 | PGE_ITS ---
Date of Service Date of service: 12/31/18 Time of Service: 12:41 Assessment and Plan (1) SBO (small bowel obstruction): Current visit: Yes Status: Acute 63 y/o male s/p subtotal colectomy and ileostomy. Plans for reversal in January 2019 at [facility] noted. Follow-up AXR films from this am reviewed. Per report, slightly better as fewer bowel loops appear to be dilated. Clinically, he is much improved. Ileostomy output has increased with gas and liquid enteric content in bag. NG output has decreased. His abdominal pain is also much improved. Will trial NG clamping today and starting clears as tolerated. Continue TPN and electrolyte replacement. If patient is able to tolerate clears, consider d/c NG and weaning off TPN 01/01/19. Chloraseptic ordered for sore throat. Discussed with patient's nurse. Patient agreeable with plans as outlined above. Subjective Interval history since last seen: Patient was medicated per CIWA protocol yesterday. He pulled out his NG last night and had it replaced. Per his nurse, he is much calmer and not restless today. NG output decreased to 150 cc overnight since midnight. Ileostomy output has resumed with > 1700cc output recorded since midnight. Per patient, the bag has been emptied 5 times. He notes that he is getting better. He does c/o a sore throat from the NG tube. Labs noted. AXR noted. Exam Const General: cooperative, comfortable and no acute distress Nutritional Appearance: cachectic Orientation: alert and oriented x3 HENMT Head: normocephalic and atraumatic Eyes Sclera: sclerae normal Resp Effort & Inspection: normal respiratory effort and able to speak in complete sentences Cardio Jugular venous pressure: no JVD GI Inspection: non-distended and visible herniation (soft and reducible, nontender and softer today) Palpation: soft, not firm, no guarding, no masses and nontender Auscultation: normal bowel sounds Skin General skin exam: no rashes or lesions noted and no jaundice Neuro General: alert Speech: speech normal Objective Objective Clinical Data: Abnormal lab results 12/31/18 12/31/18 Range/Units 06:40 06:40 RBC 2.46 L (4.50-6.00) m/cumm Hgb 9.1 L (13.5-17.5) g/dL Hct 27.9 L (40.0-50.0) % MCV 113.4 H (80-95) fL MCH 37.0 H (27.0-33.0) pg Absolute Lymphocytes 0.99 L (1.2-3.4) k/cumm Absolute Monocytes 1.22 H (0.11-0.7) k/cumm Sodium 135 L (136-145) mmol/L Potassium 3.0 L (3.5-5.1) mmol/L Creatinine 0.46 L (0.70-1.30) mg/dL Glucose 122 H (70-100) mg/dL Calcium 7.8 L (8.5-10.1) mg/dL Phosphorus 1.8 L (2.6-4.7) mg/dL Magnesium 1.7 L (1.8-2.4) mg/dL Alkaline Phosphatase 119 H (46-116) U/L Total Protein 5.4 L (6.4-8.2) g/dL Albumin 2.2 L (3.4-5.0) g/dL Vital Signs Temperature 36.8 C 12/31/18 11:10 Temperature Source Tympanic 12/31/18 11:10 Pulse 105 H 12/31/18 11:10 Pulse Rhythm Regular 12/31/18 09:58 Pulse 82 12/27/18 11:01 Respiratory Rate 18 12/31/18 11:10 Respiratory Effort Non-Labored 12/31/18 09:58 Respiratory Depth Normal 12/31/18 09:58 Respiratory Pattern Normal 12/31/18 09:58 Blood Pressure 114/76 12/31/18 11:10 Blood Pressure Mean 96 12/27/18 11:01 Blood Pressure Position Sitting 12/27/18 06:15 Pulse Oximetry 95 12/31/18 11:10 Oxygen Delivery Method Room Air 12/31/18 11:10 Oxygen Flow Rate 0 12/31/18 11:10 Pain Level 8 12/31/18 11:22 Intake & Output 12/30/18 12/31/18 12/31/18 23:59 11:59 23:59 Intake Total 1642.000 / 2990.775 1165.173 / 1165.173 Output Total / 2029 2625 / 2625 Balance 662.000 / 960.775 -1459.827 / -1459.827 Intake: IV 1542.000 / 2780.775 1115.173 / 1115.173 Oral 100 / 210 50 / 50 Output: Gastric Drainage 750 / 1350 150 / 150 Right Nare 750 / 1350 150 / 150 Urine 200 / 650 750 / 750 Stool / 1725 / 1725 Other: Urine Color Light Ally Straw Light Ally Urine Appearance Clear Clear Stool Characteristics Liquid Liquid Brown Laboratory Results WBC 8.88 k/cumm (4.4-10.8) 12/31/18 06:40 RBC 2.46 m/cumm (4.50-6.00) L 12/31/18 06:40 Hgb 9.1 g/dL (13.5-17.5) L 12/31/18 06:40 Hct 27.9 % (40.0-50.0) L 12/31/18 06:40 MCV 113.4 fL (80-95) H 12/31/18 06:40 MCH 37.0 pg (27.0-33.0) H 12/31/18 06:40 MCHC 32.6 g/dL (32.0-36.0) 12/31/18 06:40 RDW 13.5 % (11.8-14.1) 12/31/18 06:40 Plt Count 221 x1000/uL (130-400) 12/31/18 06:40 MPV 9.4 fL (8.0-11.0) 12/31/18 06:40 Immature Gran % 1.2 12/31/18 06:40 Neutrophils % 72.8 12/31/18 06:40 Lymphocytes % 11.1 12/31/18 06:40 Monocytes % 13.7 12/31/18 06:40 Eosinophils % 1.0 12/31/18 06:40 Basophils % 0.2 12/31/18 06:40 Absolute Neutrophils 6.45 k/cumm (1.2-6.7) 12/31/18 06:40 Absolute Lymphocytes 0.99 k/cumm (1.2-3.4) L 12/31/18 06:40 Absolute Monocytes 1.22 k/cumm (0.11-0.7) H 12/31/18 06:40 Absolute Eosinophils 0.09 k/cumm (0.0-0.7) 12/31/18 06:40 Absolute Basophils 0.02 k/cumm (0.0-0.2) 12/31/18 06:40 Differential Comment Agrees w/ instrument 12/29/18 06:18 RBC Morphology See below 12/29/18 06:18 Macrocytosis 3+ 12/29/18 06:18 PT 10.7 sec (9.3-11.0) 12/30/18 07:30 INR 1.1 (0.9-1.1) 12/30/18 07:30 Sodium 135 mmol/L (136-145) L 12/31/18 06:40 Potassium 3.0 mmol/L (3.5-5.1) L 12/31/18 06:40 Chloride 99 mmol/L (98-107) 12/31/18 06:40 Carbon Dioxide 29.3 mmol/L (21.0-32.0) 12/31/18 06:40 Anion Gap 6.7 mmol/L (3-11) 12/31/18 06:40 BUN 10 mg/dL (7-18) 12/31/18 06:40 Creatinine 0.46 mg/dL (0.70-1.30) L 12/31/18 06:40 Estimated GFR/1.73 m2 >= 60.00 (mL/min/1.73m2) 12/31/18 06:40 Glucose 122 mg/dL (70-100) H 12/31/18 06:40 Lactate 1.5 mmol/l (0.6-1.4) H 12/27/18 09:47 Calcium 7.8 mg/dL (8.5-10.1) L 12/31/18 06:40 Phosphorus 1.8 mg/dL (2.6-4.7) L 12/31/18 06:40 Magnesium 1.7 mg/dL (1.8-2.4) L 12/31/18 06:40 Iron 41 ug/dL (50-175) L 12/28/18 06:37 TIBC 198 ug/dL (250-450) L 12/28/18 06:37 Transferrin % Sat 21 % (20-55) 12/28/18 06:37 Ferritin 224 ng/mL (8-388) 12/28/18 06:37 Total Bilirubin 0.3 mg/dL (0.2-1.0) 12/31/18 06:40 AST 18 U/L (15-37) 12/31/18 06:40 ALT 16 U/L (12-78) 12/31/18 06:40 Alkaline Phosphatase 119 U/L (46-116) H 12/31/18 06:40 Total Protein 5.4 g/dL (6.4-8.2) L 12/31/18 06:40 Albumin 2.2 g/dL (3.4-5.0) L 12/31/18 06:40 Prealbumin 15 mg/dL (20-40) L 12/28/18 06:37 Lipase 130 U/L (73-393) 12/27/18 06:30 Vitamin B12 285 pg/mL (193-986) 12/27/18 06:30 Objective Narrative Objective Narrative: Patient Name: MAGGIE WILLOUGHBY #: [id number]: MS Ordering Provider: : ADM IN Primary Care Provider: Victoria Alanis Date of Exam: 12/31/18Sex: M : 1955ge: 63 Exam(s) EXAM: XR Abdomen, 2 Views EXAM DATE/TIME: 12/31/2018 12:00 AM CLINICAL HISTORY: 63 years old, male; Signs and symptoms; Other: Small bowel obstruction; Prior surgery; Surgery date: 1-6 months; Surgery type: Bowel resection TECHNIQUE: Imaging protocol: Frontal view of the abdomen/pelvis with upright view of the abdomen. COMPARISON: CR XR abdomen flat upright 12/30/2018 9:11 AM FINDINGS: Gastrointestinal tract: Multiple air-fluid levels and dilated loops of bowel consistent with small bowel obstruction. There may be fewer loops of involved bowel compared to December 30. An enteric feeding tube is present, with its tip located in the stomach in good position. Intraperitoneal space: Normal. No free air. Bones/joints: Unremarkable for age. IMPRESSION: Multiple air-fluid levels and dilated loops of bowel consistent with small bowel obstruction. There may be fewer loops of involved bowel compared to December 30. Dictated and Authenticated by: Natalie Coleman MD. Ordering:LUIS M Roach MD Ordered By: CC: Dictated By: Reports vrad 12/31/18 0000 12/31/18 0932 Transcribed By: Trinh Ramirez This is privileged, confidential information intended only for the provider named. Any use or distribution by any person other than this provider is strictly prohibited. If you receive this report in error, please notify us immediately at [phone] and return the original report to us at the address above. Thank-you.
--- NOTE | 2018-12-31 14:27 | PDOC.CMPRO ---
- If Service Date Differs Date of service: 12/31/18 Time of Service: 14:27 Care Management Progress Note S/O: Vito is alert when CM into assess. Per provider output from his NG tube has decreased and ileostomy has improved output. He remains on TPN and CIWA protocol he does appear less restless today. He did receive IV pain medication around 0530 this morning. No other changes in status today plan per provider is to clamp the NG tube and start clears to assess his tolerence. Anticipate he will not be discharge in the next 24-48 hours. A:Vito is a 63 y/o male s/p subtotal colectomy and ileostomy admitted with bowel obstruction. P: Vito remains in the hospital in acute status. He continue to receive TPN and supportive care while awaiting bowel obstruction to resolve. Discharge plan to be determine.
[2018-12-31] MEDS: LORazepam 1 MG TAB PO/SL (20:34)
[2019-01-01 00:11] VITALS: BP 109/71; PULSE 93; RESP 17; TEMP 36.3; O2SAT 96
[2019-01-01 03:42] VITALS: BP 115/79; PULSE 110; RESP 18; TEMP 37.4; O2SAT 92
[2019-01-01] MEDS: ACETAMINOPHEN 1,000 MG/100 ML BTL 400 MG IVPB (04:03)
[2019-01-01 07:02] LABS: HCT 29.6 % (40.0-50.0); HGB 9.6 g/dL (13.5-17.5); Mean Corp. HGB Concentration 32.4 g/dL (32.0-36.0); Mean Corpuscular Hemoglobin 36.4 pg (27.0-33.0); Mean Corpuscular Volume 112.1 fL (80-95); Platelet Count 243 x1000/uL (130-400); RBC 2.64 m/cumm (4.50-6.00); RBC Distribution Width 13.7 % (11.8-14.1)
[2019-01-01 07:26] VITALS: BP 107/76; PULSE 83; RESP 18; TEMP 36.6; O2SAT 94
[2019-01-01 07:30] LABS: Anion Gap 4.9 mmol/L (3-11); BUN 10 mg/dL (7-18); CO2 29.1 mmol/L (21.0-32.0); CREATININE 0.46 mg/dL (0.70-1.30); Calcium 8.5 mg/dL (8.5-10.1); Chloride 97 mmol/L (98-107); Glucose 90 mg/dL (70-100); Magnesium 1.8 mg/dL (1.8-2.4); PHOSPHORUS 2.7 mg/dL (2.6-4.7); Potassium 4.4 mmol/L (3.5-5.1); Sodium 131 mmol/L (136-145)
[2019-01-01 07:31] LABS: INR 1.1 (0.9-1.1); Prothrombin Time 10.8 sec (9.3-11.0)
[2019-01-01 07:34] LABS: ALT 13 U/L (12-78); AST 19 U/L (15-37); Albumin 2.3 g/dL (3.4-5.0); Alkaline Phosphatase 134 U/L (46-116); Anion Gap 5.6 mmol/L (3-11); BUN 10 mg/dL (7-18); Bilirubin, Total 0.3 mg/dL (0.2-1.0); CO2 29.4 mmol/L (21.0-32.0); CREATININE 0.47 mg/dL (0.70-1.30); Calcium 8.1 mg/dL (8.5-10.1); Chloride 98 mmol/L (98-107); Glucose 87 mg/dL (70-100); Potassium 4.5 mmol/L (3.5-5.1); Sodium 133 mmol/L (136-145); Total Protein 5.8 g/dL (6.4-8.2)
[2019-01-01] MEDS: Metoprolol CR 25 MG TABCR PO (08:23)
--- NOTE | 2019-01-01 08:41 | W.PM.PROGNOT ---
Date of Service Date of service: 01/01/19 Time of Service: 07:00 Assessment and Plan (1) B12 nutritional deficiency: Current visit: Yes Status: Acute Will start po B12 (2) SBO (small bowel obstruction): Current visit: Yes Status: Acute resolved P\\ Advance diet to soft high protein (3) Ventral hernia: Current visit: Yes Status: Acute reducible incisional hernia Qualifiers: Obstruction and gangrene presence: without obstruction or gangrene Qualified Code(s): K43.9 - Ventral hernia without obstruction or gangrene (4) Malnutrition: Current visit: Yes Status: Acute High protein diet Qualifiers: Malnutrition type: protein-calorie malnutrition Protein-calorie malnutrition severity: mild Qualified Code(s): E44.1 - Mild protein-calorie malnutrition (5) COPD (chronic obstructive pulmonary disease): Current visit: Yes Status: Chronic Continue inhalors Qualifiers: COPD type: unspecified COPD Qualified Code(s): J44.9 - Chronic obstructive pulmonary disease, unspecified (6) HTN (hypertension): Current visit: Yes Status: Chronic Continue medications Qualifiers: Hypertension type: essential hypertension Qualified Code(s): I10 - Essential (primary) hypertension (7) Alcoholism /alcohol abuse: Current visit: Yes Status: Acute Has needed ativan for some withdrawal symptoms Stable LFT's mildly elevated, ? cirrhosis needs to stop drinking and this has been discussed with patient Will D/C with B12 and other multivitamins Subjective Interval history since last seen: Mr. Morse is doing well today. His ostomy is working well. he tells me he had to empty the ostomy bag 8 times yesterday. It is very liquid. There is also air in the bag. His abdominal pain is gone. Exam Const General: cooperative and no acute distress Eyes Pupils: PERRL Resp Effort & Inspection: normal respiratory effort Auscultation: clear to auscultation bilaterally Cardio Rate: regular rate Rhythm: regular rhythm GI Palpation: soft, hernia (large incisional hernia, reducible, no pain) and nontender Auscultation: normal bowel sounds Objective Objective Clinical Data: Abnormal lab results 01/01/19 01/01/19 01/01/19 Range/Units 06:40 06:40 06:40 RBC 2.64 L (4.50-6.00) m/cumm Hgb 9.6 L (13.5-17.5) g/dL Hct 29.6 L (40.0-50.0) % MCV 112.1 H (80-95) fL MCH 36.4 H (27.0-33.0) pg Sodium 131 L 133 L (136-145) mmol/L Chloride 97 L (98-107) mmol/L Creatinine 0.46 L 0.47 L (0.70-1.30) mg/dL Calcium 8.1 L (8.5-10.1) mg/dL Alkaline Phosphatase 134 H (46-116) U/L Total Protein 5.8 L (6.4-8.2) g/dL Albumin 2.3 L (3.4-5.0) g/dL Vital Signs Temperature 97.9 F 01/01/19 07:26 Temperature Source Tympanic 01/01/19 07:26 Pulse 83 01/01/19 07:26 Pulse Rhythm Regular 12/31/18 21:00 Pulse 82 12/27/18 11:01 Respiratory Rate 18 01/01/19 07:26 Respiratory Effort Short of Breath 12/31/18 21:00 Respiratory Depth Normal 12/31/18 21:00 Respiratory Pattern Normal 12/31/18 21:00 Blood Pressure 107/76 01/01/19 07:26 Blood Pressure Mean 96 12/27/18 11:01 Blood Pressure Position Sitting 12/27/18 06:15 Pulse Oximetry 94 L 01/01/19 07:26 Oxygen Delivery Method Room Air 01/01/19 07:26 Oxygen Flow Rate 0 01/01/19 07:26 Pain Level 0 01/01/19 07:26 Intake & Output 12/31/18 12/31/18 01/01/19 11:59 23:59 11:59 Intake Total 1165.173 / 3002.173 1837 / 3002.173 1758.996 / 1758.996 Output Total 2625 / 5125 2500 / 5125 2100 / 2100 Balance -1459.827 / -2122.827 -663 / -2122.827 -341.004 / -341.004 Intake: IV 1115.173 / 2832.173 1717 / 2832.173 1228.996 / 1228.996 Oral 50 / 170 120 / 170 530 / 530 Output: Gastric Drainage 150 / 300 150 / 300 Right Nare 150 / 300 150 / 300 Urine 750 / 1950 1200 / 1950 700 / 700 Stool 1725 / 2875 1150 / 2875 1400 / 1400 Other: Urine Color Straw Light Ally Yellow Light Ally Urine Appearance Clear Clear Clear Comment strong acidic odor Stool Characteristics Liquid Brown Laboratory Results WBC 9.90 k/cumm (4.4-10.8) 01/01/19 06:40 RBC 2.64 m/cumm (4.50-6.00) L 01/01/19 06:40 Hgb 9.6 g/dL (13.5-17.5) L 01/01/19 06:40 Hct 29.6 % (40.0-50.0) L 01/01/19 06:40 MCV 112.1 fL (80-95) H 01/01/19 06:40 MCH 36.4 pg (27.0-33.0) H 01/01/19 06:40 MCHC 32.4 g/dL (32.0-36.0) 01/01/19 06:40 RDW 13.7 % (11.8-14.1) 01/01/19 06:40 Plt Count 243 x1000/uL (130-400) 01/01/19 06:40 MPV 9.0 fL (8.0-11.0) 01/01/19 06:40 Immature Gran % 1.2 12/31/18 06:40 Neutrophils % 72.8 12/31/18 06:40 Lymphocytes % 11.1 12/31/18 06:40 Monocytes % 13.7 12/31/18 06:40 Eosinophils % 1.0 12/31/18 06:40 Basophils % 0.2 12/31/18 06:40 Absolute Neutrophils 6.45 k/cumm (1.2-6.7) 12/31/18 06:40 Absolute Lymphocytes 0.99 k/cumm (1.2-3.4) L 12/31/18 06:40 Absolute Monocytes 1.22 k/cumm (0.11-0.7) H 12/31/18 06:40 Absolute Eosinophils 0.09 k/cumm (0.0-0.7) 12/31/18 06:40 Absolute Basophils 0.02 k/cumm (0.0-0.2) 12/31/18 06:40 Differential Comment Agrees w/ instrument 12/29/18 06:18 RBC Morphology See below 12/29/18 06:18 Macrocytosis 3+ 12/29/18 06:18 PT 10.8 sec (9.3-11.0) 01/01/19 06:40 INR 1.1 (0.9-1.1) 01/01/19 06:40 Sodium 133 mmol/L (136-145) L 01/01/19 06:40 Potassium 4.5 mmol/L (3.5-5.1) 01/01/19 06:40 Chloride 98 mmol/L (98-107) 01/01/19 06:40 Carbon Dioxide 29.4 mmol/L (21.0-32.0) 01/01/19 06:40 Anion Gap 5.6 mmol/L (3-11) 01/01/19 06:40 BUN 10 mg/dL (7-18) 01/01/19 06:40 Creatinine 0.47 mg/dL (0.70-1.30) L 01/01/19 06:40 Estimated GFR/1.73 m2 >= 60.00 (mL/min/1.73m2) 01/01/19 06:40 Glucose 87 mg/dL (70-100) 01/01/19 06:40 Lactate 1.5 mmol/l (0.6-1.4) H 12/27/18 09:47 Calcium 8.1 mg/dL (8.5-10.1) L 01/01/19 06:40 Phosphorus 2.7 mg/dL (2.6-4.7) 01/01/19 06:40 Magnesium 1.8 mg/dL (1.8-2.4) 01/01/19 06:40 Iron 41 ug/dL (50-175) L 12/28/18 06:37 TIBC 198 ug/dL (250-450) L 12/28/18 06:37 Transferrin % Sat 21 % (20-55) 12/28/18 06:37 Ferritin 224 ng/mL (8-388) 12/28/18 06:37 Total Bilirubin 0.3 mg/dL (0.2-1.0) 01/01/19 06:40 AST 19 U/L (15-37) 01/01/19 06:40 ALT 13 U/L (12-78) 01/01/19 06:40 Alkaline Phosphatase 134 U/L (46-116) H 01/01/19 06:40 Total Protein 5.8 g/dL (6.4-8.2) L 01/01/19 06:40 Albumin 2.3 g/dL (3.4-5.0) L 01/01/19 06:40 Prealbumin 15 mg/dL (20-40) L 12/28/18 06:37 Lipase 130 U/L (73-393) 12/27/18 06:30 Vitamin B12 285 pg/mL (193-986) 12/27/18 06:30
[2019-01-01] MEDS: Nicotine 7 MG/24 HR PATCH TD (08:57)
[2019-01-01] MEDS: Acetaminophen 325 MG TAB 650 MG PO ×2 (12:05→19:45)
[2019-01-01] MEDS: Pantoprazole 40 MG VIAL IVP (12:06)
[2019-01-01] MEDS: Normal Saline Flush 10 ML SYR IVP (12:06)
[2019-01-01] MEDS: Enoxaparin 40 MG/0.4 ML SYR SC (12:07)
[2019-01-01] MEDS: Thiamine 100 MG TAB PO (13:36)
[2019-01-01] MEDS: Ondansetron 4 MG/2 ML VIAL IVP (13:43)
--- NOTE | 2019-01-01 14:37 | PT.INTREAT ---
Date of service: 01/01/19 Time of Service: 14:37 PT Notes Inpatient Physical Therapy Treatment Note [facility] Date: 01/01/19 PRECAUTIONS: Fall SUBJECTIVE: Vito is agreeable to participating in PT, after some encouragement. He states that walking and exercise feels good on my legs after being in bed for so long. OBJECTIVE: PAIN: No c/o pain BED MOBILITY/TRANSFERS Supine-sit: I Sit-supine: I Sit-stand: S Stand-sit: S GAIT Assistive Device: SPC Weight bearing: Full Assist: SBA Distance: 75' THEREX: Patient completed several LE strengthening exercises, in a standing postion, as per flow sheet. He was able to tolerate increased repetitions today. ASSESSMENT: Patient tolerated session well without complaint. He was able to tolerate a progression in gait distance with SPC support and SBA, as well as a progression in ther ex, tolerating increased repetitions, as per flow sheet. Patient would benefit from continued gait training, as well as strengthening for improved activity tolerance. PLAN: Continue with PT's POC TREATMENT CODE/TIME: 30 minutes; 75622, [id number]
--- NOTE | 2019-01-01 14:42 | CHAPLAIN ---
Vito was resting in bed when I visited. He was pleasant, but not interested in further conversation.
[2019-01-01 16:05] VITALS: BP 110/77; PULSE 89; RESP 18; TEMP 37; O2SAT 95
--- NOTE | 2019-01-01 16:11 | PDOC.CMPRO ---
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 Vito talked in length about raising his three youngest children alone from the ages of eight months, six and eight years old. He reports having three different family units and three children previous to his last three. He reports having around fourteen grandchildren many of which he has never met and does not know their names as they live [place] the [place]. He states his daughter is currently his main support, she helps with his needs and financially when needed. CM facilitates Vito's processing. He states its funny how I raised them all on my own, I don't know how I ever did it. He reports abstinence from alcohol and shares that previously when he fell of the wagon it was when he was feeling lonely. He reviews his medical history central to the last ten months and how hard he has struggled; CM validates his feelings. Vito reports wanting to live to see his grandchildren grow. He verbalizes confusion around his medical course; CM lists questions and statements on his white board to review with medical staff. -Did resection cause hernia? Did hernia cause SBO? Is SBO resolved? Is Vito on schedule for reversal mid January? Will intervention for hernias be planned soon and will it be at [facility]? CM encouraged Vito to discuss these questions with his providers. CM strongly encouraged Palliative Care MD consult as well; Vito verbalized feeling he already is dealing with too many providers and was not swayed by the idea of PC MD being point person with Heather, PCP at [facility]. Per MD report, Vito is no longer experiencing abdominal pain. His ostomy output continues to be closely monitored. Undetermined discharge plan at this time. A: 63 year old male admitted to [facility] 12/27/18 for SBO P: Vito will discharge when ready per MD. Undetermined whether ventral hernia intervention will take place as outpatient or upon possible transfer. CM will discuss discharge plans with community providers including RN, CCC, and Provider Victoria Alanis at [facility], as well as Chi ADKINS RN.
--- NOTE | 2019-01-01 16:35 | CMPROGNOTE_ITS ---
Care Management Progress Note S/O: Vito spoke with CM at length, he reviewed his current community based supports ([employer], [employer], [employer], LUCILLE, PCP home visits, Chronic First Sampler, FWW) as well as additional supports he is currently working towards including disability benefits. 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 Vito talked in length about raising his three youngest children alone from the ages of eight months, six and eight years old. He reports having three different family units and three children previous to his last three. He reports having around fourteen grandchildren many of which he has never met and does not know their names as they live throughout the country. He states his daughter is currently his main support, she helps with his needs and financially when needed. CM facilitates Vito's processing. He states its funny how I raised them all on my own, I don't know how I ever did it. He reports abstinence from alcohol and shares that previously when he fell of the wagon it was when he was feeling lonely. He reviews his medical history central to the last ten months and how hard he has struggled; CM validates his feelings. Vito reports wanting to live to see his grandchildren grow. He verbalizes confusion around his medical course; CM lists questions and statements on his white board to review with medical staff. -Did resection cause hernia? Did hernia cause SBO? Is SBO resolved? Is Vtio on schedule for reversal mid January? Will intervention for hernias be planned soon and will it be at [facility]? CM encouraged Vito to discuss these questions with his providers. CM strongly encouraged Palliative Care MD consult as well; Vito verbalized feeling he already is dealing with too many providers and was not swayed by the idea of PC MD being point person with Heather, PCP at [facility]. Per MD report, Vito is no longer experiencing abdominal pain. His ostomy output continues to be closely monitored. Undetermined discharge plan at this time. A: 63 year old male admitted to [facility] 12/27/18 for SBO P: Vito will discharge when ready per MD. Undetermined whether ventral hernia intervention will take place as outpatient or upon possible transfer. CM will discuss discharge plans with community providers including RN, CCC, and Provider Victoria Alanis at [facility], as well as Chi ADKINS RN.
[2019-01-01] MEDS: Calcium 600mg/Vit D 200U TAB 2 TAB PO (19:30)
[2019-01-01 20:11] VITALS: BP 104/65; PULSE 92; RESP 16; TEMP 37; O2SAT 96
[2019-01-01 23:37] VITALS: BP 110/62; PULSE 92; RESP 16; TEMP 37.1; O2SAT 94
--- NOTE | 2019-01-02 07:06 | W.PM.DS.N ---
Date of service: 01/02/19 Time of Service: 07:06 DS: Diagnosis Discharge Diagnosis (1) B12 nutritional deficiency: Status: Acute (2) SBO (small bowel obstruction): Status: Acute (3) Ventral hernia: Status: Acute (4) Malnutrition: Status: Acute (5) COPD (chronic obstructive pulmonary disease): Status: Chronic (6) HTN (hypertension): Status: Chronic (7) Alcoholism /alcohol abuse: Status: Acute Discharge Plan Disposition Patient Disposition: HOME Condition: Improving Discharge Details Reason For Visit: SMALL BOWEL OBSTRUCTION Admit Date/Time: 12/27/18 10:20 Admit Provider: Radha Madsen Attending Provider: Radha Madsen [facility] Hospital Course: Pt was admitted on 12/27/18 w/ SBO. He stated that abdom pain/nausea/distention had been going on off/on for about 1 months time. He has been ignoring it. On 12/27 the pain became severe and he could not tolerate and came into the ED. + Nause no V. + bm/ileostomy outpt today. pt is scheduled for ieleostomy takedown in 1 months time. pt is very poor historian. He is on candis patches b/c surgery at [facility] wanted him tobacco free prior to take-down. I have info on ETOH status and/or if he is still drinking at this time. pt has a hx of non compliance/is a poor historian. signif longstanding ETOH abuse. Unclear if he has a PCP. I have no op reports from [facility]. It appears from CT he has had just sigmoid resection and diverting ileostomy. Pt has a massive hernia and loss of domain/loss of functional ant abdom wall. c/o SOB. c/o abdominal pain. He has a massive ventral wall hernia- it is just skin over bowel. The bowels are distended and fluid fluid but soft and easily reducible. They hernia is very lg and this is not the source of the obstructions- rather internal hernia vs adhesions. He was admitted for bowel rest and NG tube decompression. He was placed on CIWA scale and it was used by nursing staff. Patient states that he has not been drinking for 3 weeks but it did look like he had some mild DT's on this admission. His ileostomy did start working on Tuesday12/31/18. He was started on a clear liquid diet. His diet was advanced to soft, high protein on Monday 01/01. he tolerated 4 meals and was discharged home. he has a follow up with the surgeons at [facility] on 01/23 to discuss ileostomy takedown. He has been using a nicotine patch and we will encourage him continuing that and abstaining from alcohol. I will discharge him on multivitamin and thiamin and B12. We will give him information of high protein diet. I will forward his inpatient information to [facility] general surgery. Home Meds and New Rx's Prescriptions: Continued omeprazole 40 mg Capsule,Delayed Release(Dr/Ec) 40 mg PO DAILY RF: 0 cholecalciferol (vitamin D3) [Vitamin D3] 1,000 unit Capsule 5,000 unit PO DAILY RF: 0 metoprolol succinate 25 mg Tablet Extended Release 24 Hr 25 mg PO BID RF: 0 nicotine 7 mg/24 hr Patch 24 Hour 7 mg Transdermal .Q24H RF: 0 Spiriva with HandiHaler 18 mcg Capsule, W/Inhalation Device 1 cap Inhalation DAILY RF: 0 multivitamin [Multiple Vitamins] 1 TAB tablet 1 tab PO DAILY RF: 0 folic acid 1 MG tablet 1 mg PO DAILY Qty: 30 RF: 0 thiamine mononitrate (vit B1) [Vitamin B-1 (mononitrate)] 100 MG tablet 100 mg PO DAILY Qty: 30 RF: 0 albuterol sulfate [ProAir HFA] 200 PUFF/INH HFA aerosol inhaler 200 puff Inhalation Q4H PRNQty: 1 RF: 0 Discharge Instructions Instructions: High Protein / High Calorie Diet (GEN) Additional Instructions: Please follow up with your surgical team at [facility] as scheduled Please abstain from drinking alcohol or smoking Eat a high protein diet, low fiber Activity:: Activity as Tolerated Equipment/Supplies:: No Equipment Needed Diet:: high protein, low fiber Discharge Orders Discharge Orders: Discharge Order (Routine); Ordered 01/02/19 Ordered By: Jaylin Emerson Exam Const General: cooperative, comfortable and no acute distress Resp Effort & Inspection: normal respiratory effort Auscultation: clear to auscultation bilaterally Cardio Rate: regular rate Rhythm: regular rhythm GI Inspection: normal to inspection Palpation: soft and hernia (large incisional hernia, reducible) Auscultation: normal bowel sounds DS: Data Vitals/I&O Vitals and I&O: Vital Signs Temperature 98.8 F 01/01/19 23:37 Temperature Source Tympanic 01/01/19 23:37 Pulse 92 H 01/01/19 23:37 Pulse Rhythm Regular 01/01/19 20:29 Pulse 82 12/27/18 11:01 Respiratory Rate 16 01/01/19 23:37 Respiratory Effort Short of Breath 01/01/19 20:29 Respiratory Depth Normal 01/01/19 20:29 Respiratory Pattern Normal 01/01/19 20:29 Blood Pressure 110/62 01/01/19 23:37 Blood Pressure Mean 96 12/27/18 11:01 Blood Pressure Position Sitting 12/27/18 06:15 Pulse Oximetry 94 L 01/01/19 23:37 Oxygen Delivery Method Room Air 01/01/19 23:37 Oxygen Flow Rate 0 01/01/19 23:37 Pain Level 6 01/01/19 20:11 Comment 01/01/19 20:11 Intake & Output 01/01/19 01/01/19 01/02/19 11:59 23:59 11:59 Intake Total 2008.996 / 3053.996 1045.000 / 3053.996 480 / 480 Output Total 2450 / 4325 1875 / 4325 600 / 600 Balance -441.004 / -1271.004 -830.000 / -1271.004 -120 / -120 Intake: IV 1228.996 / 1583.996 355.000 / 1583.996 0 / 0 Oral 780 / 1470 690 / 1470 480 / 480 Output: Urine 700 / 1525 825 / 1525 Stool 1750 / 2800 1050 / 2800 600 / 600 Other: Urine Color Yellow Yellow Urine Appearance Clear Clear Comment mixed with contents of bag patient emptied 800 Voiding Methods Urinal Labs on day of discharge: Labs from last 24 hours 01/01/19 01/01/19 01/01/19 06:40 06:40 06:40 WBC 9.90 RBC 2.64 L Hgb 9.6 L Hct 29.6 L MCV 112.1 H MCH 36.4 H MCHC 32.4 RDW 13.7 Plt Count 243 MPV 9.0 PT 10.8 INR 1.1 Sodium 133 L Potassium 4.5 Chloride 98 Carbon Dioxide 29.4 Anion Gap 5.6 BUN 10 Creatinine 0.47 L Estimated GFR/1.73 m2 >= 60.00 Glucose 87 Calcium 8.1 L Phosphorus Magnesium Total Bilirubin 0.3 AST 19 ALT 13 Alkaline Phosphatase 134 H Total Protein 5.8 L Albumin 2.3 L 01/01/19 06:40 WBC RBC Hgb Hct MCV MCH MCHC RDW Plt Count MPV PT INR Sodium 131 L Potassium 4.4 D Chloride 97 L Carbon Dioxide 29.1 Anion Gap 4.9 BUN 10 Creatinine 0.46 L Estimated GFR/1.73 m2 >= 60.00 Glucose 90 Calcium 8.5 Phosphorus 2.7 Magnesium 1.8 Total Bilirubin AST ALT Alkaline Phosphatase Total Protein Albumin [facility] Medical History SBO (small bowel obstruction) (Acute) Ventral hernia (Acute) Malnutrition (Acute) COPD (chronic obstructive pulmonary disease) (Chronic) Tachycardia (Acute) HTN (hypertension) (Chronic) Abnormal blood electrolyte level (Acute) Nicotine addiction (Acute) Noncompliance (Acute) possible alcohol withdrawal (Acute) Diverticulitis (Acute) Weight loss (Acute) Chronic bronchitis (Acute) Alcoholism /alcohol abuse (Acute) Social History Smoking/Tobacco Use Status: Former Tobacco Use Alcohol Intake: never Drug use: Occasionally Substance use type: does not use Do you feel safe at home: Yes Do you feel safe in your relationship?: Yes Additional Social history: none of this correlates w/ physician documentation
[2019-01-02] MEDS: Acetaminophen 325 MG TAB 650 MG PO (07:08)
[2019-01-02 07:35] VITALS: BP 112/75; PULSE 102; RESP 18; TEMP 37.1; O2SAT 98
[2019-01-02 08:09] VITALS: BP 112/75; PULSE 102; RESP 18; TEMP 37.1
[2019-01-02] MEDS: Pantoprazole 40 MG TABCR PO (08:33)
[2019-01-02] MEDS: Metoprolol CR 25 MG TABCR PO (08:34)
[2019-01-02] MEDS: Calcium 600mg/Vit D 200U TAB 2 TAB PO (08:35)
[2019-01-02] MEDS: Cyanocobalamin 100 MCG TABLET PO (08:37)
[2019-01-02] MEDS: Bacitracin 1 PACKET TP (08:37)
[2019-01-02] MEDS: Nicotine 7 MG/24 HR PATCH TD (08:54)
[2019-01-02] MEDS: Thiamine 100 MG TAB PO (08:54)
--- NOTE | 2019-01-02 09:17 | PDOC.CMDIS ---
LACE Index Scoring Tool - Questions: Length of Stay (in days): 4 - 6 Acuity (Admit via E.D.?): Yes Comorbidities: Chronic Pulmonary Disease E.D. Visits: 7 - Answers: Total Score: 13 Risk of Readmission: High Risk Care Management Discharge Reason for Hospitalization: SBO Discharge Plan: Vito will discharge home when ready per MD. CM coordinated RCT ride; notifed Bharti; M/S Strong Nitric Operator of timing. CM also notified [facility] RN; Miladys Marquez and [facility] cafeteria manager; Roxana of pending discharge. CM was unaware of discharge planning; CM talked to Vito who felt he was ready; he was fully dressed and appeared confident in returning home. CM spoke to Benita JOYA regarding recommendations for [facility] VNA services, Rolando reported orders were not put in for services by surgical services and Vito was independent getting ready for discharge so he reported feeling Vito was safe to return home. CM spoke with Roxana, cafeteria manager at [facility] who was in support of coordinating orders for VNA services for Vito. Roxana reported speaking with HC and resuming services including RN, PT, TRUCK LOADER OVERHEAD CRANE. CM appreciates Roxana's support and clinical insight to Vito's need for continued monitoring. CM then recieved a call from Araceli at [facility] who reported orders were unable to be coordinated through [facility]. CM left message with Dotty at [facility] to request Dr. Emerson edit her note to state Vito needed a resumption of home health services. Recommendation for Disability eligibility, Choice for Care prison medicaid, Shower Chair and increased service supports in home setting. Patient/Family Education Needs: Review of instructions, discuss Ask Me Three. Vito was unable to confirm understanding of medical issues/process; CM was unable to coordinate this information prior to his discharge and relayed this information to Roxana; RN at [facility] and Miladys Marquez [facility] RN . Services Needed at Discharge: DME Agency (FWW), Home Delivered Meals (Resume), Home Health Care Services (RN,PT,OT, TRUCK LOADER OVERHEAD CRANE. )
--- NOTE | 2019-01-02 10:42 | CMDISCH_ITS ---
LACE Index Scoring Tool - Questions: Length of Stay (in days): 4 - 6 Acuity (Admit via E.D.?): Yes Comorbidities: Chronic Pulmonary Disease E.D. Visits: 7 - Answers: Total Score: 13 Risk of Readmission: High Risk Care Management Discharge Reason for Hospitalization: SBO Discharge Plan: Vito will discharge home when ready per MD. CM coordinated RCT ride; notifed Bharti; M/S Cigarette Tester of timing. CM also notified [facility] RN; Miladys Marquez and [facility] tile and marble installer; Roxana of pending discharge. CM was unaware of discharge planning; CM talked to Vito who felt he was ready; he was fully dressed and appeared confident in returning home. CM spoke to Benita JOYA regarding recommendations for [facility] VNA services, Rolando reported orders were not put in for services by surgical services and Vito was independent getting ready for discharge so he reported feeling Vito was safe to return home. CM spoke with Roxana, tile and marble installer at [facility] who was in support of coordinating orders for VNA services for Vito. Roxana reported speaking with HC and resuming services including RN, PT, AML ANALYST. CM appreciates Roxana's support and clinical insight to Vito's need for continued monitoring. CM then recieved a call from Araceli at [facility] who reported orders were unable to be coordinated through [facility]. CM left message with Dotty at [facility] to request Dr. Emerson edit her note to state Vito needed a resumption of home health services. Recommendation for Disability eligibility, Choice for Care snf medicaid, Shower Chair and increased service supports in home setting. Patient/Family Education Needs: Review of instructions, discuss Ask Me Three. Vito was unable to confirm understanding of medical issues/process; CM was unable to coordinate this information prior to his discharge and relayed this information to Roxana; RN at [facility] and Miladys Marquez [facility] RN . Services Needed at Discharge: DME Agency (FWW), Home Delivered Meals (Resume), Home Health Care Services (RN,PT,OT, AML ANALYST. )
--- NOTE | 2019-01-03 16:59 | PT.INDS ---
Date of service: 01/03/19 Time of Service: 16:59 PT Notes Inpatient Physical Therapy Discharge Summary Dates: 01/03/2019 Dates of Service: 12/31/2018 through 01/01/2019 This is a clinical summary of care provided on the duration of dates listed above. No charge was made in the completion of this documentation. Referring Doctor: Evy Roach MD PT Orders: PT CONSULT: Eval and treat Precautions: Standard Patient Profile/Admitting Diagnosis: Patient admitted primarily for SBO, 12/27/18, in the presence of ETOH withdrawal with h/o ETOH abuse, and complications with massive ventral wall hernia. Patient scheduled for ileostomy takedwon in 1 month at [facility]. PMHX: Per H&P EMR review: SBO (small bowel obstruction) (Acute) Ventral hernia (Acute) Malnutrition (Acute) COPD (chronic obstructive pulmonary disease) (Chronic) Tachycardia (Acute) HTN (hypertension) (Chronic) Abnormal blood electrolyte level (Acute) Nicotine addiction (Acute) Noncompliance (Acute) possible alcohol withdrawal (Acute) Diverticulitis (Acute) Weight loss (Acute) Chronic bronchitis (Acute) Alcoholism /alcohol abuse (Acute) Social History/Home Situation: Lives in a 2nd story apt with his son. Dependent on son for clothing sales assistant, grocery shopping, cooking, etc. He is I with self care. Reporting 1x/week falls, generally when getting out of his claw foot bath tub. Uses a one point cane, not interested in a walker. Current Functional Limitations: Unable to perform household level activities, of any level. Requires close supervision with basic functional transfers and ambulation. Equipment Owned/DME: Cane Subjective: NT Objective: General Observation: NT Mental Status: NT Pain:NT ROM: Right Upper Extremity: WFL Left Upper Extremity: WFL Right Lower Extremity: WFL Left Lower Extremity: WFL Strength: Right Upper Extremity: Grossly 4+/5 Left Upper Extremity: Grossly 4+/5 Right Lower Extremity: Grossly 4/5 Left Lower Extremity: Grossly 4/5 Sensation: Intact to light touch and pressure B UE/LE's Bed Mobility/Transfers: Supine to sit I Sit to supine I Sit to stand S Stand to sit S Bed to chair S Chair to bed S Gait: Per PT documentation in the afternoon of 01/01/2019 patient tolerated 75 feet of level surface ambulation with SBA assist using SPC. Balance: Static Sitting: Good Dynamic Sitting: Good Static Standing: Fair Dynamic Standing: Fair Assessment: Patient is a 63 year old male referred to physical therapy services with the diagnosis of SBO, with associated weakness. Patient presents with clinical signs and symptoms consistent with admitting diagnosis, in the presence of h/o ETOH abuse, malnourishment, COPD, contributing to impairment level findings of: Poor balance, unsteady gait, generalized progressive weakness and lack of endurance, SOB, O2 dependency. Impairments are contributing to the following functional limitations: Assist with ambulation, supervision with transfers, unstable gait, frequent falls, and inability to manage higher level household tasks. AMPAC score 20% disability. Goals: Goals X1 week 1. Supine-Sit I MET 2. Sit-Supine I MET 3. Sit-Stand I NOT MET 4. Stand-Sit I NOT MET 5. Bed-Chair I NOT MET 6. Chair-Bed I NOT MET 7. Gait 100ft, cane R hand, steady NOT MET 8. Stairs, one flight, with on rail and cane, steady, supervision NOT MET 9. Independent with home exercise program NOT MET 10. Balance Static and dynamic activities Good NOT MET DISCHARGE RECOMMENDATIONS: Home with home health PT service for balance training and general strengthening. Recommend shower chair, to reduce fall risk, due to patient report of high frequency falls when showering. TREATMENT CODE/TIME: SLY Thank you very much for this referral. Fang Catherine PT, DPT, CLT [facility]
--- NOTE | 2019-01-03 17:04 | INDS_ITS ---
Date of service: 01/03/19 Time of Service: 16:59 PT Notes Inpatient Physical Therapy Discharge Summary Dates: 01/03/2019 Dates of Service: 12/31/2018 through 01/01/2019 This is a clinical summary of care provided on the duration of dates listed above. No charge was made in the completion of this documentation. Referring Doctor: Evy Roach MD PT Orders: PT CONSULT: Eval and treat Precautions: Standard Patient Profile/Admitting Diagnosis: Patient admitted primarily for SBO, 12/27/18, in the presence of ETOH withdrawal with h/o ETOH abuse, and complications with massive ventral wall hernia. Patient scheduled for ileostomy takedwon in 1 month at [facility]. PMHX: Per H&P EMR review: SBO (small bowel obstruction) (Acute) Ventral hernia (Acute) Malnutrition (Acute) COPD (chronic obstructive pulmonary disease) (Chronic) Tachycardia (Acute) HTN (hypertension) (Chronic) Abnormal blood electrolyte level (Acute) Nicotine addiction (Acute) Noncompliance (Acute) possible alcohol withdrawal (Acute) Diverticulitis (Acute) Weight loss (Acute) Chronic bronchitis (Acute) Alcoholism /alcohol abuse (Acute) Social History/Home Situation: Lives in a 2nd story apt with his son. Dependent on son for behavioral specialist, grocery shopping, cooking, etc. He is I with self care. Reporting 1x/week falls, generally when getting out of his claw foot bath tub. Uses a one point cane, not interested in a walker. Current Functional Limitations: Unable to perform household level activities, of any level. Requires close supervision with basic functional transfers and ambulation. Equipment Owned/DME: Cane Subjective: NT Objective: General Observation: NT Mental Status: NT Pain:NT ROM: Right Upper Extremity: WFL Left Upper Extremity: WFL Right Lower Extremity: WFL Left Lower Extremity: WFL Strength: Right Upper Extremity: Grossly 4+/5 Left Upper Extremity: Grossly 4+/5 Right Lower Extremity: Grossly 4/5 Left Lower Extremity: Grossly 4/5 Sensation: Intact to light touch and pressure B UE/LE's Bed Mobility/Transfers: Supine to sit I Sit to supine I Sit to stand S Stand to sit S Bed to chair S Chair to bed S Gait: Per PT documentation in the afternoon of 01/01/2019 patient tolerated 75 feet of level surface ambulation with SBA assist using SPC. Balance: Static Sitting: Good Dynamic Sitting: Good Static Standing: Fair Dynamic Standing: Fair Assessment: Patient is a 63 year old male referred to physical therapy services with the diagnosis of SBO, with associated weakness. Patient presents with clinical signs and symptoms consistent with admitting diagnosis, in the presence of h/o ETOH abuse, malnourishment, COPD, contributing to impairment level f indings of: Poor balance, unsteady gait, generalized progressive weakness and lack of endurance, SOB, O2 dependency. Impairments are contributing to the following functional limitations: Assist with ambulation, supervision with transfers, unstable gait, frequent falls, and inability to manage higher level household tasks. AMPAC score 20% disability. Goals: Goals X1 week 1. Supine-Sit I MET 2. Sit-Supine I MET 3. Sit-Stand I NOT MET 4. Stand-Sit I NOT MET 5. Bed-Chair I NOT MET 6. Chair-Bed I NOT MET 7. Gait 100ft, cane R hand, steady NOT MET 8. Stairs, one flight, with on rail and cane, steady, supervision NOT MET 9. Independent with home exercise program NOT MET 10. Balance Static and dynamic activities Good NOT MET DISCHARGE RECOMMENDATIONS: Home with home health PT service for balance training and general strengthening. Recommend shower chair, to reduce fall risk, due to patient report of high frequency falls when showering. TREATMENT CODE/TIME: NM Thank you very much for this referral. Fang Catherine PT, DPT, CLT [facility]
== END 2019-01-02 09:25 | disposition home or self-care (01) | DRG 389 ==
LOC: ER 10:38 → MS 11:21
PROVIDERS: Student in an Organized Health Care Education/Training Program; Surgery; Admitting Provider Surgery; Emergency Provider Emergency Medicine; PCP Nurse Practitioner Family; Visit Provider Surgery
DX: K56.609 Unspecified intestinal obstruction, unspecified as to partial versus complete obstruction (principal); E46 Unspecified protein-calorie malnutrition; F10.231 Alcohol dependence with withdrawal delirium; E53.8 Deficiency of other specified B group vitamins; K43.9 Ventral hernia without obstruction or gangrene; J44.9 Chronic obstructive pulmonary disease, unspecified; I10 Essential (primary) hypertension; Z93.2 Ileostomy status; F17.210 Nicotine dependence, cigarettes, uncomplicated; Z91.19 Patient's noncompliance with other medical treatment and regimen; R00.0 Tachycardia, unspecified; Z90.49 Acquired absence of other specified parts of digestive tract; E87.6 Hypokalemia; E83.42 Hypomagnesemia; E83.39 Other disorders of phosphorus metabolism; J02.9 Acute pharyngitis, unspecified
CPT/HCPCS: 36415; 36569; 80048; 80053; 83690; 85027; 93005; 94640; 96361; 96365; 96366; 96375; 97110; 97162; 97530; 99223; 99232; 99233; 99239; 99285; J1650; 74018; 74019; 74177; 82607; 82728; 83540; 83550; 83605; 83735; 84100; 84134; 85025; 85610; 93010; J0131; J2405; J3475; J3480; J3490; J7613

== ENCOUNTER 2019-01-10 16:56 | Outpatient (REF) | payer MEDICAID, SELFPAY ==
[2019-01-10 22:33] LABS: Anion Gap 9.3 mmol/L (3-11); BUN 8 mg/dL (7-18); CO2 27.7 mmol/L (21.0-32.0); CREATININE 0.57 mg/dL (0.70-1.30); Calcium 9.1 mg/dL (8.5-10.1); Chloride 98 mmol/L (98-107); Glucose 83 mg/dL (70-100); Potassium 4.3 mmol/L (3.5-5.1); Sodium 135 mmol/L (136-145); TSH 2.25 uIU/mL (0.358-3.74); Vitamin B12 405 pg/mL (193-986)
== END 2019-01-10 17:16 ==
LOC: NCHCN 16:56
PROVIDERS: PCP Nurse Practitioner Family; Visit Provider Nurse Practitioner Family
DX: R51 Headache (principal); E46 Unspecified protein-calorie malnutrition; D75.89 Other specified diseases of blood and blood-forming organs; F10.10 Alcohol abuse, uncomplicated; E83.42 Hypomagnesemia; K21.9 Gastro-esophageal reflux disease without esophagitis
CPT/HCPCS: 80048; 82607; 83735; 84443

== ENCOUNTER 2019-01-25 12:07 | Outpatient (REF) | payer MEDICAID, SELFPAY ==
[2019-01-25 13:08] LABS: Abs Immature Grans 0.03 k/cumm (0.0-0.09); Absolute Basophil Count 0.02 k/cumm (0.0-0.2); Absolute Eosinophil Count 0.17 k/cumm (0.0-0.7); Absolute Lymphocyte Count 1.45 k/cumm (1.2-3.4); Absolute Monocyte Count 0.67 k/cumm (0.11-0.7); Basophils % 0.3; Eosinophils % 2.4; HCT 34.1 % (40.0-50.0); HGB 10.9 g/dL (13.5-17.5); Immature Grans % 0.4; Lymphocytes % 20.9; Mean Corpuscular Hemoglobin 34.6 pg (27.0-33.0); Mean Corpuscular Volume 108.3 fL (80-95); Mean Platelet Volume 10.2 fL (8.0-11.0); Monocytes % 9.7; Neutrophils % 66.3; Platelet Count 192 x1000/uL (130-400); RBC 3.15 m/cumm (4.50-6.00); RBC Distribution Width 13.2 % (11.8-14.1); White Blood Cell Count 6.94 k/cumm (4.4-10.8)
[2019-01-25 13:19] LABS: Iron 36 ug/dL (50-175); Total Iron Binding Capacity 329 ug/dL (250-450); Transferrin Sat 11 % (20-55)
== END 2019-01-25 12:27 ==
LOC: NCHCN 12:07
PROVIDERS: PCP Nurse Practitioner Family; Visit Provider Internal Medicine
DX: K57.30 Diverticulosis of large intestine without perforation or abscess without bleeding (principal); E83.42 Hypomagnesemia
CPT/HCPCS: 82272; 83540; 83550; 85025

== ENCOUNTER 2019-02-05 12:27 | Outpatient (REF) | payer MEDICAID, SELFPAY ==
[2019-02-07 10:52] LABS: Hepatitis C Ab w Rflx HCV PCR Negative (NEGAT)
== END 2019-02-05 12:47 ==
LOC: NCHCN 12:27
PROVIDERS: PCP Nurse Practitioner Family; Visit Provider Specialist/Technologist Athletic Trainer
DX: Z11.59 Encounter for screening for other viral diseases (principal)
CPT/HCPCS: 86803

== ENCOUNTER 2019-03-09 16:22 | Outpatient (REF) | payer MEDICAID, SELFPAY ==
[2019-03-09 17:49] LABS: Abs Immature Grans 0.05 k/cumm (0.0-0.09); Absolute Basophil Count 0.06 k/cumm (0.0-0.2); Absolute Eosinophil Count 0.06 k/cumm (0.0-0.7); Absolute Lymphocyte Count 1.65 k/cumm (1.2-3.4); Absolute Monocyte Count 1.23 k/cumm (0.11-0.7); Absolute Neutrophil Count 5.68 k/cumm (1.2-6.7); Basophils % 0.7; Eosinophils % 0.7; HCT 33.7 % (40.0-50.0); HGB 11.4 g/dL (13.5-17.5); Immature Grans % 0.6; Lymphocytes % 18.9; Mean Corp. HGB Concentration 33.8 g/dL (32.0-36.0); Mean Corpuscular Hemoglobin 33.8 pg (27.0-33.0); Mean Platelet Volume 9.8 fL (8.0-11.0); Monocytes % 14.1; Platelet Count 191 x1000/uL (130-400); RBC 3.37 m/cumm (4.50-6.00); RBC Distribution Width 16.6 % (11.8-14.1); White Blood Cell Count 8.73 k/cumm (4.4-10.8)
[2019-03-09 18:32] LABS: Iron 159 ug/dL (50-175); Total Iron Binding Capacity 352 ug/dL (250-450); Transferrin Sat 45 % (20-55)
[2019-03-09 18:59] LABS: ALT 24 U/L (12-78); AST 43 U/L (15-37); Albumin 3.5 g/dL (3.4-5.0); Alkaline Phosphatase 209 U/L (46-116); Anion Gap 17.6 mmol/L (3-11); BUN 4 mg/dL (7-18); Bilirubin, Total 0.2 mg/dL (0.2-1.0); CO2 19.4 mmol/L (21.0-32.0); CREATININE 0.68 mg/dL (0.70-1.30); Calcium 8.5 mg/dL (8.5-10.1); Chloride 100 mmol/L (98-107); Ferritin 47 ng/mL (8-388); Folate > 20.0 ng/mL (8.6-20.0); Glucose 97 mg/dL (70-100); Potassium 3.8 mmol/L (3.5-5.1); Sodium 137 mmol/L (136-145); Vitamin B12 553 pg/mL (193-986)
[2019-03-12 12:21] LABS: Vitamin D 25 Total 66.9 ng/ml (30-100)
== END 2019-03-09 16:42 ==
LOC: NCHCN 16:22
PROVIDERS: PCP Nurse Practitioner Family; Visit Provider Internal Medicine
DX: E55.9 Vitamin D deficiency, unspecified (principal); E46 Unspecified protein-calorie malnutrition; D75.89 Other specified diseases of blood and blood-forming organs; D64.9 Anemia, unspecified; Z87.19 Personal history of other diseases of the digestive system
CPT/HCPCS: 80053; 82306; 82607; 82728; 82746; 83540; 83550; 83735; 85025

== ENCOUNTER 2019-04-13 14:14 | Outpatient (REF) | payer MEDICAID, SELFPAY ==
[2019-04-13 20:49] LABS: Abs Immature Grans 0.03 k/cumm (0.0-0.09); Absolute Basophil Count 0.04 k/cumm (0.0-0.2); Absolute Eosinophil Count 0.12 k/cumm (0.0-0.7); Absolute Lymphocyte Count 1.16 k/cumm (1.2-3.4); Absolute Monocyte Count 0.75 k/cumm (0.11-0.7); Basophils % 0.8; Eosinophils % 2.4; HCT 36.6 % (40.0-50.0); HGB 12.6 g/dL (13.5-17.5); Immature Grans % 0.6; Lymphocytes % 22.7; Mean Corp. HGB Concentration 34.4 g/dL (32.0-36.0); Mean Corpuscular Hemoglobin 35.1 pg (27.0-33.0); Mean Corpuscular Volume 101.9 fL (80-95); Mean Platelet Volume 10.4 fL (8.0-11.0); Monocytes % 14.7; Neutrophils % 58.8; Platelet Count 199 x1000/uL (130-400); RBC 3.59 m/cumm (4.50-6.00); RBC Distribution Width 18.1 % (11.8-14.1)
[2019-04-13 21:14] LABS: Iron 194 ug/dL (50-175); Total Iron Binding Capacity 367 ug/dL (250-450); Transferrin Sat 53 % (20-55)
[2019-04-13 21:21] LABS: ALT 39 U/L (16-63); AST 73 U/L (15-37); Albumin 3.6 g/dL (3.4-5.0); Alkaline Phosphatase 199 U/L (46-116); Anion Gap 17.1 mmol/L (3-11); BUN 8 mg/dL (7-18); Bilirubin, Total 0.2 mg/dL (0.2-1.0); CO2 22.9 mmol/L (21.0-32.0); CREATININE 0.83 mg/dL (0.70-1.30); Calcium 8.1 mg/dL (8.5-10.1); Chloride 98 mmol/L (98-107); Cholesterol 161 mg/dL (50-200); Glucose 111 mg/dL (70-100); HDL Cholesterol 39 mg/dL (40-60); Magnesium 1.1 mg/dL (1.8-2.4); Potassium 3.8 mmol/L (3.5-5.1); Sodium 138 mmol/L (136-145); Total Protein 7.3 g/dL (6.4-8.2); Triglyceride 462 mg/dL (30-150); Vitamin B12 498 pg/mL (193-986)
[2019-04-13 21:38] LABS: LDL CHOLESTEROL 59 mg/dL (<100)
[2019-04-13 21:42] LABS: Anisocytosis 1+; Hypochromasia 1+
[2019-04-13 21:43] LABS: Macrocytosis 1+
== END 2019-04-13 14:34 ==
LOC: NCHCN 14:14
PROVIDERS: PCP Nurse Practitioner Family; Visit Provider Nurse Practitioner Family
DX: E46 Unspecified protein-calorie malnutrition (principal); R51 Headache; J44.9 Chronic obstructive pulmonary disease, unspecified; R79.89 Other specified abnormal findings of blood chemistry; I70.90 Unspecified atherosclerosis; D75.89 Other specified diseases of blood and blood-forming organs; M54.5 Low back pain; F41.8 Other specified anxiety disorders
CPT/HCPCS: 80053; 80061; 83721; 82607; 83540; 83550; 83735; 85025

== ENCOUNTER 2019-05-18 13:42 | Outpatient (REF) | payer MEDICAID, SELFPAY ==
[2019-05-18 14:05] LABS: Magnesium 0.9 mg/dL (1.8-2.4)
== END 2019-05-18 14:02 ==
LOC: LBN 13:42
PROVIDERS: PCP Nurse Practitioner Family; Visit Provider Internal Medicine
DX: D51.3 Other dietary vitamin B12 deficiency anemia (principal); E44.0 Moderate protein-calorie malnutrition; K57.30 Diverticulosis of large intestine without perforation or abscess without bleeding
CPT/HCPCS: 83735

== ENCOUNTER 2019-07-13 16:05 | Inpatient (IN) | payer OTHER, SELFPAY ==
[2019-07-13] VITALS (25 sets, daily range): BP systolic 107–122; BP diastolic 75–91; PULSE 96–117; RESP 10–28; TEMP 36–36.4; O2SAT 82–100
--- NOTE | 2019-07-13 16:25 | ED.GENADUL_ITS ---
Discharge Plan Disposition Patient Disposition: [facility] INPATIENT Condition: Stable Discharge Details Chief Complaint: SOB Clinical Impression: Acute dehydration Primary Care Provider: Victoria Alanis ED Provider: Flaco Marquez Home Meds and New Rx's Prescriptions: No Action morphine concentrate 100 mg/5 mL (20 mg/mL) solution 10 mg PO Q6H MDD 30 mg PRN (Reason: pain) Qty: 30 RF: 0 metoprolol succinate 25 mg tablet extended release 24 hr 25 mg PO BID Qty: 60 RF: 0 omeprazole 40 mg Capsule,Delayed Release(Dr/Ec) 40 mg PO DAILY RF: 0 cholecalciferol (vitamin D3) [Vitamin D3] 1,000 unit Capsule 5,000 unit PO DAILY RF: 0 nicotine 7 mg/24 hr Patch 24 Hour 7 mg Transdermal .Q24H RF: 0 Spiriva with HandiHaler 18 mcg Capsule, W/Inhalation Device 1 cap Inhalation DAILY RF: 0 multivitamin [Multiple Vitamins] 1 TAB tablet 1 tab PO DAILY RF: 0 folic acid 1 MG tablet 1 mg PO DAILY Qty: 30 RF: 0 thiamine mononitrate (vit B1) [Vitamin B-1 (mononitrate)] 100 MG tablet 100 mg PO DAILY Qty: 30 RF: 0 albuterol sulfate [ProAir HFA] 200 PUFF/INH HFA aerosol inhaler 200 puff Inhalation Q4H PRNQty: 1 RF: 0 Medical Decision Making 63-year-old male presents from home via EMS. He has been placed on home hospice for cachexia, end-stage COPD. There is question of increased difficulty breathing at home today and therefore brought by EMS to the ER. Patient arrives with mildly increased respiratory rate 28, borderline tachycardia of 100. He states to me he wishes to remain on hospice. Reviewed his most recent palliative care note. Patient has had some difficulty correctly taking his medications including morphine. Patient had been given DuoNeb on route. He was placed on supplemental oxygen. Basic screening labs obtained and patient given Solu-Medrol. Patient interviewed by care management. The case subsequent discussed with on- call palliative care, Dr. Galvez, and patient will be admitted to the hospital for hydration and ongoing management. ECG Data Attestation: I personally reviewed and interpreted this ECG (s) as follows: Interpretation: Sinus tachycardia with a rate of 110, the QRS is narrow, there is no ST segment elevation present HPI General Mode of arrival: EMS . Date/Time Provider Initiated Documentation: 07/13/19 16:09 . Information obtained by: patient and EMS . History of Present Illness 63 year old M presents to the emergency department with the chief complaint of On hospice. Difficulty breathing at home., described as moderate, Quality is described as constant, and is localized to the chest. Patient reports no radiation. Patient started experiencing this day(s) and it has been constant. No relieving factors improve symptom(s), No exacerbating factors reported . Patient notes denies chest pain and fever/chills. Patient did receive the following treatments prior to arrival, other (DuoNeb x2 per EMS) Related Data Home Medications Medication Instructions Recorded Confirmed albuterol sulfate [ProAir HFA] 200 puff INHALATION Q4H PRN #1 inh 01/23/18 12/27/18 folic acid 1 mg PO DAILY #30 tab 01/23/18 12/27/18 multivitamin [Multiple Vitamins] 1 tab PO DAILY tab 01/23/18 12/27/18 thiamine mononitrate (vit B1) 100 mg PO DAILY #30 tab 01/23/18 12/27/18 [Vitamin B-1 (mononitrate)] cholecalciferol (vitamin D3) 5,000 unit PO DAILY 05/29/18 12/27/18 [Vitamin D3] omeprazole 40 mg PO DAILY 05/29/18 12/27/18 Spiriva with HandiHaler 1 cap INHALATION DAILY 07/12/18 12/27/18 nicotine 7 mg TRANSDERMAL .Q24H 07/12/18 12/27/18 morphine concentrate 100 mg/5 mL 10 mg PO Q6H PRN #30 ml MDD 30 mg 06/05/19 (20 mg/mL) oral solution metoprolol succinate 25 mg 25 mg PO BID #60 tab 06/20/19 tablet,extended release 24 hr Previous Rx's Medication Instructions Recorded albuterol sulfate [ProAir HFA] 200 puff INHALATION Q4H PRN #1 inh 01/23/18 folic acid 1 mg PO DAILY #30 tab 01/23/18 multivitamin [Multiple Vitamins] 1 tab PO DAILY tab 01/23/18 thiamine mononitrate (vit B1) 100 mg PO DAILY #30 tab 01/23/18 [Vitamin B-1 (mononitrate)] morphine concentrate 100 mg/5 mL 10 mg PO Q6H PRN #30 ml MDD 30 mg 06/05/19 (20 mg/mL) oral solution metoprolol succinate 25 mg 25 mg PO BID #60 tab 06/20/19 tablet,extended release 24 hr Allergies Allergy/AdvReac Type Severity Reaction Status Date / Time No Known Allergies Allergy Unverified 12/27/18 06:22 General Stated Complaint: SOB CADE: 2 Review of Systems Narrative: On home hospice/palliative care. Denies fever. [facility] Medical History (Updated 06/07/19 @ 14:22 by Jessenia Dominguez MD) Abnormal blood electrolyte level (Acute) Alcoholism /alcohol abuse (Acute) Cachexia (Acute) Chronic abdominal pain (Acute) Chronic bronchitis (Acute) Chronic dyspnea (Acute) Colostomy care (Acute) COPD (chronic obstructive pulmonary disease) (Chronic) Diverticulitis (Acute) DNI (do not intubate) (Acute) DNR (do not resuscitate) (Acute) Encounter for hospice care discussion (Acute) Frequent falls (Acute) Goals of care, counseling/discussion (Acute) HTN (hypertension) (Chronic) Malabsorption syndrome (Acute) Malnutrition (Acute) Mild cognitive impairment with memory loss (Acute) Nicotine addiction (Acute) Noncompliance (Acute) Palliative care patient (Acute) POLST (Physician Orders for Life-Sustaining Treatment) (Acute) possible alcohol withdrawal (Acute) Protein-calorie malnutrition, severe (Acute) SBO (small bowel obstruction) (Acute) Tachycardia (Acute) Unintentional weight loss (Acute) Ventral hernia (Acute) Weight loss (Acute) Surgical History History of partial colectomy (Acute) Family History Mother , diabetes complications age 78 Diabetes Father , age 98 from old age No problems noted. Brother , in [facility] Combat injury Brother , in MVC Motor vehicle crash, injury Son No problems noted. Daughter No problems noted. Social History (Updated 06/07/19 @ 14:16 by Jessenia Dominguez MD) Smoking/Tobacco Use Status: Current every day Tobacco: How many years used: 51 Quit status: considering quitting Counseling given: counseling >3 minutes Alcohol Intake: current Counseling given: Yes Counseling provided: provider counseling Details: advised to quit; drinking 24 oz cans, 2 at a time, at least twice a week. 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 Has HH 2 x per week. 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 Unable to gain weight despite ensure, increased intake, etc. Breathing worse. Coughing. Needs to focus on what he can do to live the best he can. Can't get better. Considering hospice. Team mtg soon. Exam Narrative Exam Narrative: GEN: awake, alert, oriented 3. Pleasant, cachectic HEAD: Normocephalic, atraumatic ENT: Mucous membranes dry, oropharynx unremarkable, External ear exam unremarkable EYES: PERRL, EOMI NECK: Full ROM, no JOVAN, no menigismus CHEST/RESP: Nontender, bilateral end expiratory wheeze and rhonchi at bases. CARDIOVASCULAR: RRR, no murmur, rub juan. 2+ Rad pulse bilateral ABDOMEN: Soft, soft reducible ventral hernia, right-sided ostomy bag. EXT: Full ROM, no edema, no rash, cachectic with muscle wasting Neuro: Grossly normal neurologic exam, conversant, interactive. Psych: Speech fluent, thoughts congruent, affect normal Course Vital Signs Vital signs: Vital Signs Temperature 36.4 C L 07/13/19 16:06 Pulse 110 H 07/13/19 16:06 Respiratory Rate 14 07/13/19 16:06 Blood Pressure 113/76 07/13/19 16:06 Pulse Oximetry 94 L 07/13/19 16:06 Temperature 36.4 C L 07/13/19 16:06 Temperature Source Skin 11/29/19 16:06 Pulse 110 H 07/13/19 16:06 Respiratory Rate 14 07/13/19 16:06 Blood Pressure 113/76 07/13/19 16:06 Pulse Oximetry 94 L 07/13/19 16:06 Oxygen Delivery Method Aerosol Mask 07/13/19 16:06 Oxygen Flow Rate 5.5 07/13/19 16:06
[2019-07-13] MEDS: methylPREDNISolone SUCC 125 MG VIAL IVP (17:00)
[2019-07-13] MEDS: Normal Saline 1,000 ML 150 ML IV (17:00)
--- NOTE | 2019-07-13 17:04 | NUR.NOTE ---
Nursing Note: care management at bedside.
[2019-07-13 17:20] LABS: HCT 37.2 % (40.0-50.0); HGB 12.6 g/dL (13.5-17.5); Mean Corp. HGB Concentration 33.9 g/dL (32.0-36.0); Mean Corpuscular Hemoglobin 36.8 pg (27.0-33.0); Mean Corpuscular Volume 108.8 fL (80-95); Mean Platelet Volume 8.3 fL (8.0-11.0); Platelet Count 383 x1000/uL (130-400); RBC 3.42 m/cumm (4.50-6.00); RBC Distribution Width 13.9 % (11.8-14.1)
[2019-07-13 17:23] LABS: White Blood Cell Count 35.71 k/cumm (4.4-10.8)
[2019-07-13 17:40] LABS: ALT 14 U/L (16-63); AST 40 U/L (15-37); Absolute Lymphocyte Count 1.07 k/cumm (1.2-3.4); Absolute Monocyte Count 1.79 k/cumm (0.11-0.7); Absolute Neutrophil Count 31.07 k/cumm (1.2-6.7); Alkaline Phosphatase 307 U/L (46-116); BUN 38 mg/dL (7-18); Bilirubin, Total 0.9 mg/dL (0.2-1.0); Calcium 9.1 mg/dL (8.5-10.1); Chloride 93 mmol/L (98-107); Estimated GFR 16.73 (mL/min/1.73m2); Glucose 162 mg/dL (74-106); Potassium 4.6 mmol/L (3.5-5.1); Sodium 132 mmol/L (136-145); Total Protein 8.1 g/dL (6.4-8.2)
[2019-07-13 17:41] LABS: Diff Comment Manual Differential; Macrocytosis 2+; Polychromasia Present
--- NOTE | 2019-07-13 17:55 | NUR.NOTE ---
Nursing Note: unable to verify meds. pt poor historian.
--- NOTE | 2019-07-13 18:26 | PDOC.CMPRO ---
- If Service Date Differs Date of service: 07/13/19 Time of Service: 18:26 Care Management Progress Note S/O: CM met with Vito in the ED at the request of provider. Vito has difficulty engaging due to shortness of breath. Per nursing Vito arrived by EMS after his daughter Shantel instructed her younger brother Salas to call the ambulance. CM reviewed Vito's chart including last palliative note by which reveals that Vito has not been doing well at home, and was recently placed on Hospice. Vito does not appear to be able to care for himself at this time, and requires additional support to manage his symptoms. CM contacted home health and spoke with Hospice nurse, and with . Vito will be admitted under hospice for symptom management. CM contacted his daughter Shantel and provided update she agrees with the plan. A: Vito is a 63 year old male with end stage COPD,recently placed on hospice and admitted r/t shortness of breath for symptom management. P: Vito will be admitted for symptom management, disposition to be determined. CM will continue to support discharge planning and disposition.
[2019-07-13] MEDS: Glycopyrrolate 0.2 MG/1 ML VIAL IVP ×3 (19:29→23:30)
[2019-07-13] MEDS: cefTRIAXone 1 GM/50 ML BAG IVPB (19:29)
[2019-07-13] MEDS: LORazepam 2 MG/ML VIAL 0.5 MG IVP (19:54)
[2019-07-13] MEDS: AZITHROMYCIN 500 MG in Normal Saline 250 ML 250 MG IVPB (20:37)
--- NOTE | 2019-07-13 20:48 | W.PM.HP.N ---
Date of service: 07/13/19 Time of Service: 20:48 Assessment and Plan Assessment and plan (1) Malabsorption syndrome: Status: Acute (2) Protein-calorie malnutrition, severe: Status: Acute (3) Mild cognitive impairment with memory loss: Status: Acute (4) Cachexia: Status: Acute Assessment and plan: He appears to be clearly dying. He is on Hospice. This is expected. I expect him to soon. We will keep him comfortable. I have IV hydration, antibx which I will continue overnight. If he doesn't turn a corner, will d/c Continue with morphine and lorazepam. I have ordered glycopyrolate due to his secretions. He has O2 in place. I am available by cell: [phone] 07/03, I will be in Sat. to assess him. History of Present Illness History of Present Illness Chief Complaint: SOB Consults Consult date: 07/13/19 Narrative: 63 yo Male who is on Hospice for malnutrition presented to the ER for SOB. His caregiver is his 22 year old son who had left for the evening. He was found to be dehydrated and elevated white count. He was dissheveled and due to his condition, unable to return home as there was no one to care for him. I admitted him for symptom management on hospice. He was non verbal and lying in bed. His eyes were closed. He is receiving antibiotics and IV hydration. Review of Systems Narrative: Unable to give me any history , non verbal at this time. [facility] Medical History (Updated 06/07/19 @ 14:22 by Jessenia Dominguez MD) Abnormal blood electrolyte level (Acute) Alcoholism /alcohol abuse (Acute) Cachexia (Acute) Chronic abdominal pain (Acute) Chronic bronchitis (Acute) Chronic dyspnea (Acute) Colostomy care (Acute) COPD (chronic obstructive pulmonary disease) (Chronic) Diverticulitis (Acute) DNI (do not intubate) (Acute) DNR (do not resuscitate) (Acute) Encounter for hospice care discussion (Acute) Frequent falls (Acute) Goals of care, counseling/discussion (Acute) HTN (hypertension) (Chronic) Malabsorption syndrome (Acute) Malnutrition (Acute) Mild cognitive impairment with memory loss (Acute) Nicotine addiction (Acute) Noncompliance (Acute) Palliative care patient (Acute) POLST (Physician Orders for Life-Sustaining Treatment) (Acute) possible alcohol withdrawal (Acute) Protein-calorie malnutrition, severe (Acute) SBO (small bowel obstruction) (Acute) Tachycardia (Acute) Unintentional weight loss (Acute) Ventral hernia (Acute) Weight loss (Acute) Surgical History History of partial colectomy (Acute) Family History Mother , diabetes complications age 78 Diabetes Father , age 98 from old age No problems noted. Brother , in [facility] Combat injury Brother , in MVC Motor vehicle crash, injury Son No problems noted. Daughter No problems noted. Social History (Updated 06/07/19 @ 14:16 by Jessenia Dominguez MD) Smoking/Tobacco Use Status: Current every day Tobacco: How many years used: 51 Quit status: considering quitting Counseling given: counseling >3 minutes Alcohol Intake: current Counseling given: Yes Counseling provided: provider counseling Details: advised to quit; drinking 24 oz cans, 2 at a time, at least twice a week. 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 Has HH 2 x per week. 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 Unable to gain weight despite ensure, increased intake, etc. Breathing worse. Coughing. Needs to focus on what he can do to live the best he can. Can't get better. Considering hospice. Team mtg soon. Meds Home Medications and Allergies Home Medications Medication Instructions Recorded Confirmed Type folic acid 1 mg PO DAILY #30 tab 01/23/18 07/13/19 Rx multivitamin [Multiple Vitamins] 1 tab PO DAILY tab 01/23/18 07/13/19 Rx thiamine mononitrate (vit B1) 100 mg PO DAILY #30 tab 01/23/18 07/13/19 Rx [Vitamin B-1 (mononitrate)] omeprazole 20 mg PO DAILY 05/29/18 07/13/19 History Spiriva with HandiHaler 1 cap INHALATION DAILY 07/12/18 07/13/19 History nicotine 14 mg TRANSDERMAL .Q24H 07/12/18 07/13/19 History morphine concentrate 100 mg/5 mL 10 mg PO Q6H PRN #30 ml MDD 30 mg 06/05/19 07/13/19 Rx (20 mg/mL) oral solution albuterol sulfate [ProAir HFA] 2 puff INHALATION Q4H PRN 07/13/19 07/13/19 History cyanocobalamin (vitamin B-12) 1,000 mcg PO DAILY 07/13/19 07/13/19 History [Vitamin B-12] ferrous sulfate 325 mg PO DAILY 07/13/19 07/13/19 History fluticasone propion-salmeterol 1 puff INHALATION BID 07/13/19 07/13/19 History [Advair HFA] haloperidol lactate [Haldol] 1 mg .Q6H, PRN 07/13/19 History hyoscyamine sulfate 0.125 mg PO .Q4H, PRN 07/13/19 07/13/19 History ipratropium-albuterol 3 ml INHALATION PRN PRN 07/13/19 07/13/19 History loratadine [Claritin] 10 mg PO DAILY 07/13/19 07/13/19 History lorazepam 1 mg SUBLINGUAL .Q6H, PRN 07/13/19 07/13/19 History magnesium L-lactate 168 mg PO DAILY 07/13/19 07/13/19 History metoprolol succinate 25 mg PO DAILY 07/13/19 07/13/19 History montelukast [Singulair] 10 mg PO DAILY 07/13/19 07/13/19 History prochlorperazine maleate 10 mg PO PRN PRN 07/13/19 07/13/19 History sertraline 25 mg PO DAILY 07/13/19 07/13/19 History Allergies Allergy/AdvReac Type Severity Reaction Status Date / Time No Known Allergies Allergy Unverified 07/13/19 19:57 Exam Narrative Exam Narrative: Lying in bed, eyes closed. Did not respond to my voice Const Nutritional Appearance: cachectic Orientation: not alert and not awake Eyes Other: eyes closed Neck Carotids: normal carotid upstroke Resp Effort & Inspection: labored and nasal flaring Auscultation: rales and rhonchi Cardio Rate: tachycardic GI Palpation: soft, no hepatosplenomegaly and no guarding Auscultation: hypoactive bowel sounds General: deferred Results Labs Result diagrams: 07/13/19 17:15 07/13/19 17:15 Labs: Laboratory Results - last 24 hr 07/13/19 07/13/19 07/13/19 16:50 17:15 17:15 WBC 35.71 H* RBC 3.42 L Hgb 12.6 L Hct 37.2 L MCV 108.8 H MCH 36.8 H MCHC 33.9 RDW 13.9 Plt Count 383 MPV 8.3 Immature Gran % See Differential Neutrophils % 83.0 Band Neutrophils % 4.0 Lymphocytes % 3.0 Monocytes % 5.0 Eosinophils % 0.0 Basophils % 0.0 Metamyelocytes % 2.0 Myelocytes % 3.0 Absolute Neutrophils 31.07 H Absolute Lymphocytes 1.07 L Absolute Monocytes 1.79 H Absolute Eosinophils 0.00 Absolute Basophils 0.00 Differential Comment Manual differential RBC Morphology See below Polychromasia Present Macrocytosis 2+ Sodium 132 L Potassium 4.6 Chloride 93 L Carbon Dioxide 15.0 L Anion Gap 24.0 H BUN 38 H Creatinine 3.70 H* Estimated GFR/1.73 m2 16.73 Glucose 162 H Calcium 9.1 Magnesium 2.0 Total Bilirubin 0.9 AST 40 H ALT 14 L Alkaline Phosphatase 307 H Troponin I Cancelled Total Protein 8.1 Albumin 3.0 L 07/13/19 19:50 WBC RBC Hgb Hct MCV MCH MCHC RDW Plt Count MPV Immature Gran % Neutrophils % Band Neutrophils % Lymphocytes % Monocytes % Eosinophils % Basophils % Metamyelocytes % Myelocytes % Absolute Neutrophils Absolute Lymphocytes Absolute Monocytes Absolute Eosinophils Absolute Basophils Differential Comment RBC Morphology Polychromasia Macrocytosis Sodium Potassium Chloride Carbon Dioxide Anion Gap BUN Creatinine Estimated GFR/1.73 m2 Glucose Calcium Magnesium Total Bilirubin AST ALT Alkaline Phosphatase Troponin I Cancelled Total Protein Albumin Last Vital Signs Temp 96.8 F L 07/13/19 20:01 Pulse 117 H 07/13/19 18:40 Resp 13 07/13/19 19:30 BP 119/81 07/13/19 18:40 Pulse Ox 96 07/13/19 20:01
[2019-07-13] MEDS: MORPHine 10 MG/ML VIAL IVP (21:21)
[2019-07-13] MEDS: LORazepam 2 MG/ML VIAL 1 MG IVP (23:30)
[2019-07-14] MEDS: Glycopyrrolate 0.2 MG/1 ML VIAL IVP ×6 (01:35→17:48)
[2019-07-14 02:02] VITALS: RESP 7
[2019-07-14] MEDS: LORazepam 2 MG/ML VIAL 1 MG IVP ×3 (03:54→14:28)
[2019-07-14] MEDS: Normal Saline 1,000 ML 75 ML IV (05:30)
[2019-07-14 07:20] VITALS: BP 97/57; PULSE 90; RESP 10; TEMP 38.4; O2SAT 97
[2019-07-14 07:30] VITALS: O2SAT 87
[2019-07-14] MEDS: Normal Saline Flush 10 ML SYR IVP ×6 (07:31→17:48)
--- NOTE | 2019-07-14 10:34 | W.PM.PROGNOT ---
Date of Service Date of service: 07/14/19 Time of Service: 10:35 Assessment and Plan Assessment and plan (1) Malabsorption syndrome: Status: Acute (2) Mild cognitive impairment with memory loss: Status: Acute (3) Cachexia: Status: Acute (4) COPD (chronic obstructive pulmonary disease): Status: Chronic Assessment and plan: Vito appears to be actively dying. This is not a surprise. He has been on hospice. We will forward to [employer]. I will increase his morphine to help with the work of breathing. Also we will switch the glycopyrrolate to IV versus p.o. I have stopped the IV fluids. I would have expected that he would have made some improvement over the last 24 hours if IV fluids and antibiotics would be helpful. I have discussed this with his nurse. I expect him to today. This document was created by [employer] and may contain grammatical and translation errors. Qualifiers: COPD type: unspecified COPD Qualified Code(s): J44.9 - Chronic obstructive pulmonary disease, unspecified Subjective Subjective Interval history since last seen: Vito remains unresponsive. His O2 sats have been going down. He has not experienced palliative nurse who feels that he is actively dying. He is less responsive than yesterday. He was bladder scanned and had 500 cc. He does not appear to be uncomfortable. His breathing has been somewhat labored. Exam Narrative Exam Narrative: He is lying in bed. His head is extended. His eyes are shut. He does not respond as we take off his oxygen mask. His breathing is labored. Not apneic. He does sound like his lungs are full. He does not respond to pressure. Objective Objective Clinical Data: Abnormal lab results 07/13/19 07/13/19 Range/Units 17:15 17:15 WBC 35.71 H* (4.4-10.8) k/cumm RBC 3.42 L (4.50-6.00) m/cumm Hgb 12.6 L (13.5-17.5) g/dL Hct 37.2 L (40.0-50.0) % MCV 108.8 H (80-95) fL MCH 36.8 H (27.0-33.0) pg Absolute Neutrophils 31.07 H (1.2-6.7) k/cumm Absolute Lymphocytes 1.07 L (1.2-3.4) k/cumm Absolute Monocytes 1.79 H (0.11-0.7) k/cumm Sodium 132 L (136-145) mmol/L Chloride 93 L (98-107) mmol/L Carbon Dioxide 15.0 L (21.0-32.0) mmol/L Anion Gap 24.0 H (3-11) mmol/L BUN 38 H (7-18) mg/dL Creatinine 3.70 H* (0.70-1.30) mg/dL Glucose 162 H (74-106) mg/dL AST 40 H (15-37) U/L ALT 14 L (16-63) U/L Alkaline Phosphatase 307 H (46-116) U/L Albumin 3.0 L (3.4-5.0) g/dL Vital Signs Temperature 101.1 F H 07/14/19 07:20 Temperature Source Tympanic 07/14/19 07:20 Pulse 90 07/14/19 07:20 Pulse Rhythm Regular 07/13/19 18:40 Pulse 109 H 07/13/19 17:50 Respiratory Rate 10 L 07/14/19 07:20 Respiratory Effort 07/14/19 07:46 Respiratory Depth Deep 07/14/19 07:46 Respiratory Pattern Bradypnea 07/14/19 07:46 Blood Pressure 97/57 L 07/14/19 07:20 Blood Pressure Mean 82 07/13/19 17:16 Pulse Oximetry 87 L 07/14/19 07:30 Oxygen Delivery Method Nasal Cannula 07/14/19 07:30 Oxygen Flow Rate 8 07/14/19 07:30 Pain Level 0 07/13/19 18:40 Comment 07/13/19 23:30 Intake & Output 07/13/19 07/13/19 07/14/19 11:59 23:59 11:59 Intake Total 672.5 / 672.5 657.5 / 657.5 Balance 672.5 / 672.5 657.5 / 657.5 Weight 84 lb 6.993 oz Intake: IV 672.5 / 672.5 657.5 / 657.5 Laboratory Results WBC 35.71 k/cumm (4.4-10.8) H* 07/13/19 17:15 RBC 3.42 m/cumm (4.50-6.00) L 07/13/19 17:15 Hgb 12.6 g/dL (13.5-17.5) L 07/13/19 17:15 Hct 37.2 % (40.0-50.0) L 07/13/19 17:15 MCV 108.8 fL (80-95) H 07/13/19 17:15 MCH 36.8 pg (27.0-33.0) H 07/13/19 17:15 MCHC 33.9 g/dL (32.0-36.0) 07/13/19 17:15 RDW 13.9 % (11.8-14.1) 07/13/19 17:15 Plt Count 383 x1000/uL (130-400) 07/13/19 17:15 MPV 8.3 fL (8.0-11.0) 07/13/19 17:15 Immature Gran % See Differential 07/13/19 17:15 Neutrophils % 83.0 07/13/19 17:15 Band Neutrophils % 4.0 % 07/13/19 17:15 Lymphocytes % 3.0 07/13/19 17:15 Monocytes % 5.0 07/13/19 17:15 Eosinophils % 0.0 07/13/19 17:15 Basophils % 0.0 07/13/19 17:15 Metamyelocytes % 2.0 % 07/13/19 17:15 Myelocytes % 3.0 % 07/13/19 17:15 Absolute Neutrophils 31.07 k/cumm (1.2-6.7) H 07/13/19 17:15 Absolute Lymphocytes 1.07 k/cumm (1.2-3.4) L 07/13/19 17:15 Absolute Monocytes 1.79 k/cumm (0.11-0.7) H 07/13/19 17:15 Absolute Eosinophils 0.00 k/cumm (0.0-0.7) 07/13/19 17:15 Absolute Basophils 0.00 k/cumm (0.0-0.2) 07/13/19 17:15 Differential Comment Manual differential 07/13/19 17:15 RBC Morphology See below 07/13/19 17:15 Polychromasia Present 07/13/19 17:15 Macrocytosis 2+ 07/13/19 17:15 Sodium 132 mmol/L (136-145) L 07/13/19 17:15 Potassium 4.6 mmol/L (3.5-5.1) 07/13/19 17:15 Chloride 93 mmol/L (98-107) L 07/13/19 17:15 Carbon Dioxide 15.0 mmol/L (21.0-32.0) L 07/13/19 17:15 Anion Gap 24.0 mmol/L (3-11) H 07/13/19 17:15 BUN 38 mg/dL (7-18) H 07/13/19 17:15 Creatinine 3.70 mg/dL (0.70-1.30) H* 07/13/19 17:15 Estimated GFR/1.73 m2 16.73 (mL/min/1.73m2) 07/13/19 17:15 Glucose 162 mg/dL (74-106) H 07/13/19 17:15 Calcium 9.1 mg/dL (8.5-10.1) 07/13/19 17:15 Magnesium 2.0 mg/dL (1.8-2.4) 07/13/19 17:15 Total Bilirubin 0.9 mg/dL (0.2-1.0) 07/13/19 17:15 AST 40 U/L (15-37) H 07/13/19 17:15 ALT 14 U/L (16-63) L 07/13/19 17:15 Alkaline Phosphatase 307 U/L (46-116) H 07/13/19 17:15 Troponin I Cancelled 07/13/19 19:50 Total Protein 8.1 g/dL (6.4-8.2) 07/13/19 17:15 Albumin 3.0 g/dL (3.4-5.0) L 07/13/19 17:15
[2019-07-14] MEDS: Scopolamine 1 MG/3 DAYS PATCH TD (11:48)
--- NOTE | 2019-07-14 13:11 | CMPROGNOTE_ITS ---
- If Service Date Differs Date of service: 07/14/19 Time of Service: 13:11 Care Management Progress Note S/O: Vito is unresponsive, CM did contact his daughter Shantel and provided update. She arrived with her younger brother and Vito's sister. Family is now at the bedside. Vito is receiving symptom management, CM has reviewed plan with primary nurse. Vito will remain at [facility] for end of life care. CM offered a comfort cart to the family which they accepted. Family declines [place] at this time. CM did not review homes with the family, will follow up with them after they have been able to spend sometime with Vito. A: Vito is a 63 year old male admitted under Hospice for symptom management and now end of life care. P: Vito will receive end of life care here at [facility]. CM will provide support to patient and family during Vito's stay.
--- NOTE | 2019-07-14 19:20 | W.PM.DDS ---
Date of service: 07/14/19 Time of Service: 19:20 Discharge Sum: Prov Provider Primary care physician: Laurie Alanis NP Admitting clinician: Carmen Galvez Attending physician on admission: Carmen Galvez Discharge Sum: Diag PCOD Cause of : Failure to thrive in adult Contributing Factors (1) Malabsorption syndrome: (2) Mild cognitive impairment with memory loss: (3) Cachexia: (4) COPD (chronic obstructive pulmonary disease): Discharge Sum: Summary Date and Time Admission Date: 07/13/1911/29/19 17:47 Date of : 07/14/19 Time of : 18:49 Summary Details: 63 year old male admitted for dehydration and elevated white count who was on hospice. Admitted for symptom management, rehydrated and given antibiotics. 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 Approximately 5 hours later he was placed on a morphine drip for comfort. His family came to visit. He peacefully at 18:49, pronounced by his caring nurse, Odalis. Additional Data Family: contacted Was code activated?: No Autopsy requested?: No forensic computer examiner notified?: No Advance directives: Yes Hospice patient?: Yes
== END 2019-07-14 18:49 | disposition expired | DRG 391 ==
LOC: ER 18:11 → MS 18:16
PROVIDERS: Admitting Provider Family Medicine; Emergency Provider Emergency Medicine; PCP Nurse Practitioner Family; Visit Provider Family Medicine
DX: K90.9 Intestinal malabsorption, unspecified (principal); E43 Unspecified severe protein-calorie malnutrition; R64 Cachexia; Z51.5 Encounter for palliative care; R62.7 Adult failure to thrive; J44.9 Chronic obstructive pulmonary disease, unspecified; D72.829 Elevated white blood cell count, unspecified; E86.0 Dehydration; R46.0 Very low level of personal hygiene; R09.02 Hypoxemia; R06.02 Shortness of breath; F06.8 Other specified mental disorders due to known physiological condition; Z74.2 Need for assistance at home and no other household member able to render care; F17.210 Nicotine dependence, cigarettes, uncomplicated
CPT/HCPCS: 36415; 80053; 93005; 96360; 99238; 99285; NC; 83735; 84484; 85025; 93010; 99284; J0456; J0696; J2060; J2270; J2930